=== PATIENT | female | born 1990 | race African-American/Black ===

== ENCOUNTER 2016-07-19 15:16 | Inpatient (IN) | payer MEDICAID ==
[~2016-07-19] VITALS: Ht 152.4 cm; Wt 132.6 kg
[~2016-07-19 15:16] MED LIST: ABIL5TAB6 PO; LABE100 PO; METO10TA PO; TRAZ50TA4 PO
[2016-07-19 16:01] VITALS: BP 122/56; PULSE 140; RESP 20; TEMP 101.2; O2SAT 94
[2016-07-19] MEDS ORDERED: ARIP1TAB5 PO (16:10)
[2016-07-19] MEDS ORDERED: TRAZ100T4 PO (16:10)
[2016-07-19] MEDS ORDERED: LABE100T2 PO (16:10)
[2016-07-19] MEDS ORDERED: AZITHROMYCIN INJ 500 MG in SODIUM CHLOR 0.9% 250 ML INJ 250 ML IV STA (16:25)
[2016-07-19] MEDS ORDERED: SODIUM CHLOR 0.9% 1000 ML INJ 1,000 ML IV ONE ×3 (16:25)
[2016-07-19] MEDS ORDERED: SODIUM CHLOR 0.9% 1000 ML INJ 900 ML IV ONE (16:25)
[2016-07-19] MEDS ORDERED: cefTRIAXone INJ 2,000 MG in SODIUM CHLORIDE 0.9% INJ 100 ML IV STA (16:25)
[2016-07-19 16:28] VITALS: RESP 20; O2SAT 95
[2016-07-19] MEDS ORDERED: methylPREDNISolone SOD SUCC 125 MG/2 ML VIAL IV ONE (16:30)
[2016-07-19 17:21] LABS: BASOPHIL # 0.1 TH/MM3 (0-0.2); BASOPHIL % 0.2 % (0.0-2.0); HEMATOCRIT 40.9 % (35.0-46.0); MEAN CELL VOLUME 82.3 FL (80.0-100.0); MEAN CORPUSCULAR HEMOGLOBIN 27.2 PG (27.0-34.0); MEAN CORPUSCULAR HGB CONC 33.1 % (32.0-36.0); MONO % 6.3 % (0.0-8.0); NEUT % 85.5 % (16.0-70.0); PLATELET COUNT 306 TH/MM3 (150-450); RED BLOOD COUNT 4.97 MIL/MM3 (4.00-5.30); RED CELL DISTRIBUTION WIDTH 13.9 % (11.6-17.2); WHITE BLOOD COUNT 37.4 TH/MM3 (4.0-11.0)
[2016-07-19] MEDS: RESP: ALBUTEROL 2.5 MG/IPRATROPIUM 0.5 MG NEB (SCH) INH (17:28)
[2016-07-19 17:29] LABS: HEMO FLAGS AUTO DIFF
[2016-07-19 17:30] LABS: ANION GAP 12 MEQ/L (5-15); AST (GOT) 25 U/L (15-37); BICARBONATE 21.9 MEQ/L (21.0-32.0); BLOOD UREA NITROGEN 20 MG/DL (7-18); CHLORIDE 100 MEQ/L (98-107); GLOMERULAR FILTRATION RATE 30 ML/MIN (>89); POTASSIUM 4.1 MEQ/L (3.5-5.1); SODIUM (NA) 134 MEQ/L (136-145)
[2016-07-19 17:32] VITALS: O2SAT 95
[2016-07-19 17:34] LABS: ALKALINE PHOSPHATASE 118 U/L (45-117); ALT (GPT) 27 U/L (10-53); APTT (PATIENT) 33.9 SEC (24.3-30.1); PROTHROMBIN TIME - PATIENT 11.4 SEC (9.8-11.6); TOTAL BILIRUBIN ADULT 0.8 MG/DL (0.2-1.0)
--- NOTE | 2016-07-19 17:44 | RADRPT ---
EXAM DATE/TIME: 07/19/2016 17:35 [place] COMPARISON: CHEST SINGLE AP, April 15, 2016, 17:56. INDICATIONS : Patient complains of shortness of breath, cough, and chest pain. MEDICAL HISTORY : None. SURGICAL HISTORY : None. ENCOUNTER: Initial ACUITY: 3 days PAIN SCORE: 8/10 LOCATION: chest FINDINGS: A single view of the chest demonstrates the lungs to be symmetrically aerated without evidence of mas s, infiltrate or effusion. The cardiomediastinal contours are unremarkable. Osseous structures are intact. CONCLUSION: No acute disease. Sy Verdugo MD on July 19, 2016 at 17:42 Board Certified Radiologist. This report was verified electronically.
[2016-07-19 17:55] LABS: BANDS 14 % (0-6); METAMYELOCYTES 2 % (0-1); NEUTROPHIL # MANUAL DIFF 32.5 TH/MM3 (1.8-7.7); POLYS (SEG NEUTROPHILS) 71 % (16-70); SCAN/DIFF FINAL DIFF MANUAL; WBC DIFF SAMPLE 100
[2016-07-19 17:56] LABS: PLATELET ESTIMATE SMEAR NORMAL (NORMAL); PLATELET MORPHOLOGY NORMAL (NORMAL)
[2016-07-19] MEDS ORDERED: ACETAMINOPHEN 325 MG TAB PO ONE (18:00)
--- NOTE | 2016-07-19 18:03 | PD ---
HPI Chief Complaint: General Weakness Time Seen by Provider: 16:03 Travel History International Travel<30 days: No Contact w/Intl Traveler<30days: No History of Present Illness HPI Patient is a 26-year-old female who presents to emergency room with complaints of cough and congestion for the past 2-3 weeks. Reports that she has not been feeling well, reports that she has been coughing, reports that her cough isn't productive. Patient reports that she is also been having some sore throat, reports that she has been having body aches and myalgias. Patient reports that for the past 3 days, she has not been able to eat or drink anything secondary to discomfort. Patient denies any sick contacts. Patient denies any recent travels or trips. Patient did not have the flu vaccine this year. PFSH Past Medical History Asthma: Yes Autoimmune Disease: No Blood Disorders: No Anxiety: Yes Depression: Yes Heart Rhythm Problems: No Cancer: No Cardiovascular Problems: Yes (HBP) Chemotherapy: No Chest Pain: No Cystic Fibrosis: No Diabetes: No Diminished Hearing: No Endocrine: No Gastrointestinal Disorders: Yes Genitourinary: Yes Headaches: No Hypertension: Yes Immune Disorder: No Musculoskeletal: No Neurologic: No Psychiatric: Yes (DEPRESSION, ANXIETY) Reproductive: No Respiratory: No Immunizations Current: No Renal Failure: Yes (DURING LAST ) Seizures: No Sickle Cell Disease: No Sleep Apnea: No Thyroid Disease: No Ulcer: No Influenza Vaccination: Yes ?: Not LMP: 06/22/16 Menopausal: No : 4 Para: 3 Miscarriage: 0 Ectopic : No Ovarian Cysts: No Dilation and Curettage (D&C): No Tubal Ligation: No Past Surgical History Abdominal Surgery: Yes ( X 1) Section: Yes (2012) Gynecologic Surgery: Yes Hysterectomy: No Other Surgery: Yes Social History Alcohol Use: No Tobacco Use: No Substance Use: No Allergies-Medications (Allergen,Severity, Reaction): Coded Allergies: Contrast Media (Verified Allergy, Unknown, RASH, 07/19/16) Reported Meds & Prescriptions Reported Meds & Active Scripts Active Reported Trazodone (Trazodone HCl) 100 Mg Tab 100 Mg PO HS Abilify (Aripiprazole) 10 Mg Tab 10 Mg PO HS Labetalol (Labetalol HCl) 100 Mg Tab 100 Mg PO BID Review of Systems General / Constitutional: Positive: Fever, Chills Eyes: No: Visual changes HENT: Positive: Sore Throat, No: Headaches Cardiovascular: No: Chest Pain or Discomfort Respiratory: Positive: Cough, Shortness of Breath Gastrointestinal: Positive: Nausea, Vomiting, No: Abdominal Pain Genitourinary: No: Dysuria Musculoskeletal: No: Pain Skin: No Rash Neurologic: No: Weakness Psychiatric: No: Depression Endocrine: No: Polydipsia Hematologic/Lymphatic: No: Easy Bruising Physical Exam Narrative GENERAL: Patient toxic, tachycardic and febrile SKIN: Warm and dry. HEAD: Atraumatic. Normocephalic. EYES: Pupils equal and round. No scleral icterus. No injection or drainage. ENT: No nasal bleeding or discharge. Mucous membranes tacky and dry NECK: Trachea midline. No JVD. CARDIOVASCULAR: Tachycardic. No murmur appreciated. RESPIRATORY: No accessory muscle use. Clear to auscultation. Breath sounds equal bilaterally. GASTROINTESTINAL: Abdomen soft, non-tender, nondistended. Hepatic and splenic margins not palpable. MUSCULOSKELETAL: No obvious deformities. No clubbing. No cyanosis. No edema. NEUROLOGICAL: Awake and alert. No obvious cranial nerve deficits. Motor grossly within normal limits. Normal speech. PSYCHIATRIC: Appropriate mood and affect; insight and judgment normal. Data Data Last Documented VS Vital Signs Date Time Temp Pulse Resp B/P Pulse Ox O2 Delivery O2 Flow Rate FiO2 07/19/16 17:32 95 Nasal Cannula 2.00 07/19/16 16:28 20 07/19/16 16:05 140 07/19/16 16:01 101.2 122/56 Orders Electrocardiogram (07/19/16 16:25) Complete Blood Count With Diff (07/19/16 16:25) Comprehensive Metabolic Panel (07/19/16 16:25) Prothrombin Time / Inr (Pt) (07/19/16 16:25) Act Partial Throm Time (Ptt) (07/19/16 16:25) Lactic Acid Sepsis Protocol (07/19/16 16:25) Urinalysis - C+S If Indicated (07/19/16 16:25) Influenzae A/B Antigen (07/19/16 16:25) Blood Culture (07/19/16 16:25) Chest, Single Ap (07/19/16 16:25) Ecg Monitoring (07/19/16 16:25) Iv Access Insert/Monitor (07/19/16 16:25) Oximetry (07/19/16 16:25) Oxygen Administration (07/19/16 16:25) Ceftriaxone Inj (Rocephin Inj) (07/19/16 16:25) Azithromycin Inj (Zithromax Inj) (07/19/16 16:25) Albuterol-Ipratropium Neb (Duoneb Neb) (07/19/16 16:30) Methylprednisolone So Succ Inj (Solumedr (07/19/16 16:30) Sodium Chlor 0.9% 1000 Ml Inj (Ns 1000 M (07/19/16 16:25) Sodium Chlor 0.9% 1000 Ml Inj (Ns 1000 M (07/19/16 16:25) Sodium Chlor 0.9% 1000 Ml Inj (Ns 1000 M (07/19/16 16:25) Sodium Chlor 0.9% 1000 Ml Inj (Ns 1000 M (07/19/16 16:25) Ed Urine Pregnancytest Poc (07/19/16 16:25) Group A Rapid Strep Screen (07/19/16 16:29) Consult Vascular Access Team (07/19/16 ) Acetaminophen (Tylenol) (07/19/16 18:00) Vancomycin Inj (Vancomycin Inj) (07/19/16 18:15) Admit Order (Ed Use Only) (07/19/16 18:35) Labs Laboratory Tests Test 07/19/16 16:00 White Blood Count 37.4 TH/MM3 Red Blood Count 4.97 MIL/MM3 Hemoglobin 13.5 GM/DL Hematocrit 40.9 % Mean Corpuscular Volume 82.3 FL Mean Corpuscular Hemoglobin 27.2 PG Mean Corpuscular Hemoglobin 33.1 % Concent Red Cell Distribution Width 13.9 % Platelet Count 306 TH/MM3 Mean Platelet Volume 8.7 FL Neutrophils (%) (Auto) 85.5 % Lymphocytes (%) (Auto) 8.0 % Monocytes (%) (Auto) 6.3 % Eosinophils (%) (Auto) 0.0 % Basophils (%) (Auto) 0.2 % Neutrophils # (Auto) 32.0 TH/MM3 Lymphocytes # (Auto) 3.0 TH/MM3 Monocytes # (Auto) 2.3 TH/MM3 Eosinophils # (Auto) 0.0 TH/MM3 Basophils # (Auto) 0.1 TH/MM3 CBC Comment AUTO DIFF Differential Total Cells 100 Counted Neutrophils % (Manual) 71 % Band Neutrophils % 14 % Lymphocytes % 9 % Monocytes % 4 % Neutrophils # (Manual) 32.5 TH/MM3 Metamyelocytes 2 % Differential Comment FINAL DIFF MANUAL Platelet Estimate NORMAL Platelet Morphology Comment NORMAL Prothrombin Time 11.4 SEC Prothromb Time International 1.0 RATIO Ratio Activated Partial 33.9 SEC Thromboplast Time Sodium Level 134 MEQ/L Potassium Level 4.1 MEQ/L Chloride Level 100 MEQ/L Carbon Dioxide Level 21.9 MEQ/L Anion Gap 12 MEQ/L Blood Urea Nitrogen 20 MG/DL Creatinine 2.40 MG/DL Estimat Glomerular Filtration 30 ML/MIN Rate Random Glucose 91 MG/DL Lactic Acid Level 0.8 mmol/L Calcium Level 8.6 MG/DL Total Bilirubin 0.8 MG/DL Aspartate Amino Transf 25 U/L (AST/SGOT) Alanine Aminotransferase 27 U/L (ALT/SGPT) Alkaline Phosphatase 118 U/L Total Protein 8.3 GM/DL Albumin 2.8 GM/DL MDM Medical Decision Making Medical Screen Exam Complete: Yes Emergency Medical Condition: Yes Interpretation(s) Vital Signs Date Time Temp Pulse Resp B/P Pulse Ox O2 Delivery O2 Flow Rate FiO2 07/19/16 17:32 95 Nasal Cannula 2.00 07/19/16 16:28 96 Room Air 07/19/16 16:28 20 95 Room Air 07/19/16 16:05 140 20 95 Room Air 07/19/16 16:01 101.2 140 20 122/56 94 Laboratory Tests Test 07/19/16 16:00 White Blood Count 37.4 TH/MM3 (4.0-11.0) Red Blood Count 4.97 MIL/MM3 (4.00-5.30) Hemoglobin 13.5 GM/DL (11.6-15.3) Hematocrit 40.9 % (35.0-46.0) Mean Corpuscular Volume 82.3 FL (80.0-100.0) Mean Corpuscular Hemoglobin 27.2 PG (27.0-34.0) Mean Corpuscular Hemoglobin 33.1 % Concent (32.0-36.0) Red Cell Distribution Width 13.9 % (11.6-17.2) Platelet Count 306 TH/MM3 (150-450) Mean Platelet Volume 8.7 FL (7.0-11.0) Neutrophils (%) (Auto) 85.5 % (16.0-70.0) Lymphocytes (%) (Auto) 8.0 % (9.0-44.0) Monocytes (%) (Auto) 6.3 % (0.0-8.0) Eosinophils (%) (Auto) 0.0 % (0.0-4.0) Basophils (%) (Auto) 0.2 % (0.0-2.0) Neutrophils # (Auto) 32.0 TH/MM3 (1.8-7.7) Lymphocytes # (Auto) 3.0 TH/MM3 (1.0-4.8) Monocytes # (Auto) 2.3 TH/MM3 (0-0.9) Eosinophils # (Auto) 0.0 TH/MM3 (0-0.4) Basophils # (Auto) 0.1 TH/MM3 (0-0.2) CBC Comment AUTO DIFF Differential Total Cells 100 Counted Neutrophils % (Manual) 71 % (16-70) Band Neutrophils % 14 % (0-6) Lymphocytes % 9 % (9-44) Monocytes % 4 % (0-8) Neutrophils # (Manual) 32.5 TH/MM3 (1.8-7.7) Metamyelocytes 2 % (0-1) Differential Comment FINAL DIFF MANUAL Platelet Estimate NORMAL (NORMAL) Platelet Morphology Comment NORMAL (NORMAL) Prothrombin Time 11.4 SEC (9.8-11.6) Prothromb Time International 1.0 RATIO Ratio Activated Partial 33.9 SEC Thromboplast Time (24.3-30.1) Sodium Level 134 MEQ/L (136-145) Potassium Level 4.1 MEQ/L (3.5-5.1) Chloride Level 100 MEQ/L (98-107) Carbon Dioxide Level 21.9 MEQ/L (21.0-32.0) Anion Gap 12 MEQ/L (5-15) Blood Urea Nitrogen 20 MG/DL (7-18) Creatinine 2.40 MG/DL (0.50-1.00) Estimat Glomerular Filtration 30 ML/MIN (>89) Rate Random Glucose 91 MG/DL (74-106) Lactic Acid Level 0.8 mmol/L (0.4-2.0) Calcium Level 8.6 MG/DL (8.5-10.1) Total Bilirubin 0.8 MG/DL (0.2-1.0) Aspartate Amino Transf 25 U/L (15-37) (AST/SGOT) Alanine Aminotransferase 27 U/L (10-53) (ALT/SGPT) Alkaline Phosphatase 118 U/L (45-117) Total Protein 8.3 GM/DL (6.4-8.2) Albumin 2.8 GM/DL (3.4-5.0) Differential Diagnosis Pneumonia, influenza, strep pharyngitis, colitis, PE, viral syndrome Narrative Course Patient is a 26-year-old female who presents to emergency room with tachycardia , fever, cough and congestion for the past 2-3 weeks. Patient toxic appearing, temperature 101.2, tachycardia with a heart rate in 140s, x-ray of the chest ordered for evaluation of pneumonia. CBC, BMP, influenza ordered for further evaluation of symptoms. Patient does have SIRS criteria on presentation to the emergency room, patient had tachycardia and was febrile, lactate ordered as well as 30 cc/kg bolus of IV fluids. Patient with WBC of 37.4, patient with 14 bands, lactate is 0.8 BUN/creatinine 20/2.40 - patient's baseline creatinine is 1.46 on May 03, 2016 Patient is septic - x-ray of the chest is negative for pneumonia, patient is positive for group A strep, patient is negative flu a and flu B. Blood cultures are pending. Patient was empirically treated with Zosyn and Rocephin as it was presumed that she had pneumonia upon presentation to the emergency room. We'll add vancomycin. Patient will require admission case reviewed with dr self who accepts pt to service Critical Care Narrative Aggregate critical care time was 30 minutes. Time to perform other separately billable procedures was not included in the critical care time. My time did not include minutes spent treating any other patients simultaneously or on activities that did not directly contribute to the patient's treatment. The services I provided to this patient were to treat and/or prevent clinically significant deterioration that could result in: , decompensation, deterioration I provided critical care services requiring my management, as noted below: Chart data review, documentation time, medication orders and management, vital sign assessments/reviewing monitor data, ordering and reviewing lab tests, ordering and interpreting/reviewing x-rays and diagnostic studies, care of the patient and discussion of the patient with the admitting physicians. Diagnosis Primary Impression: Sepsis Qualified Code: A41.9 - Sepsis, due to unspecified organism Additional Impression: Group A streptococcal infection Admitting Information Admitting Physician Requests: it Lesli Calero DO Jul 19, 2016 18:03
[2016-07-19] MEDS ORDERED: VANCOMYCIN INJ 1,000 MG in SODIUM CHLOR 0.9% 250 ML INJ 250 ML IV ONE (18:15)
[2016-07-19 18:44] VITALS: BP 122/58; PULSE 138; RESP 20; TEMP 99.1; O2SAT 99
[2016-07-19] MEDS ORDERED: ACETAMINOPHEN/HYDROcodone 325 MG/10 MG TAB PO PRN (18:45)
[2016-07-19] MEDS ORDERED: ACETAMINOPHEN 325 MG TAB PO PRN (18:45)
[2016-07-19] MEDS ORDERED: NALOXONE HCL 0.4 MG/ML AMP IV PRN (18:45)
[2016-07-19] MEDS ORDERED: ACETAMINOPHEN/HYDROcodone 325 MG/5 MG TAB PO PRN (18:45)
[2016-07-19] MEDS ORDERED: MORPHINE SULFATE 4 MG/ML INJ IV PRN (18:45)
[2016-07-19 19:48] LABS: BLOOD, URINE MOD (NEG); GLUCOSE,URINE NEG (NEG); KETONE, URINE NEG (NEG); MUCUS URINE FEW /lpf (OCC); NITRITE,URINE NEG (NEG); SQUAMOUS EPITHELIAL CELL URINE 2 /hpf (0-5); URINE COLOR YELLOW (YELLW/STRAW)
[2016-07-19 19:56] LABS: BACTERIA, URINE OCC /hpf; COMMENT (UR) CATH-CULTURE IND; CULTURE IF INDICATED CATH CULTURE IND
[2016-07-19] MEDS ORDERED: SODIUM CHLOR 0.9% 1000 ML INJ 1,000 ML IV SCH (20:00)
[2016-07-19 20:12] VITALS: BP 119/71; PULSE 118; RESP 22; TEMP 100; O2SAT 92
[2016-07-19] MEDS ORDERED: DEXAMETHASONE SOD PHOS 20 MG/5 ML VIAL IV PUSH ONE (20:45)
[2016-07-19] MEDS: PANTOPRAZOLE SODIUM 40 MG VIAL IV PUSH SCH (20:58)
--- NOTE | 2016-07-19 21:06 | HHI.HP ---
[facility] Service [facility] Primary Care Physician Jordan Renner MD Admission Diagnosis Sepsis Diagnoses: (1) Sepsis (2) Group A streptococcal infection (3) UTI (urinary tract infection) (4) Acute renal failure (5) Hyponatremia Chief Complaint: Sore throat and headache Travel History International Travel<30 Days: No Contact w/Intl Traveler <30 Da: No Sepsis Criteria SIRS Criteria (2 or more): Temp > 100.9 or < 96.8, Heart rate over 90, WBC > 46619, < 4000 or > 10% bands Sepsis Criteria (SIRS+source): Infect source susp/known History of Present Illness Ms. Deleon is a 26 year-old female with a history of asthma, depression, anxiety , hypertension, and renal failure during who presented to the ER complaining of sore throat and odynophagia x 3 days. Temperature is 101.2 in ER , pulse is 140, WBC 37.4 with left shift, abnormal UA suggestive of UTI, negative CXR. The patient is seen in the ER. She complains of severe sore throat, odynophagia , and headache x 3 days not relieved by anything and resulting in minimal p.o. intake due to pain. Sore throat is accompanied by cough with minimal sputum production. The patient reports having diarrhea since arrival in ER. No black or bloody stool. Denies hematuria or dysuria. Denies history of asthma, respiratory or cardiac disorders, diabetes mellitus, DVT, PE, CVA, seizures, cancer, or thyroid dysfunction. . Review of Systems Constitutional: DENIES: Fever Ears, nose, mouth, throat: COMPLAINS OF: Throat pain, Odynophagia Respiratory: COMPLAINS OF: Cough, Sputum production, Shortness of breath Gastrointestinal: COMPLAINS OF: Diarrhea, Difficulty Swallowing, DENIES: Black stools, Bloody stools Genitourinary: DENIES: Hematuria, Dysuria Other pertinent positives noted in HPI, otherwise all systems are reviewed and are otherwise negative. Past Family Social History Past Medical History Anxiety Depression Hypertension . Past Surgical History x 2 . Reported Medications labetolol 100 mg bid abilify 15 mg daily trazadone 50 mg qhs . Allergies: Coded Allergies: Contrast Media (Verified Allergy, Unknown, RASH, 07/19/16) Active Ordered Medications Current Medications Ceftriaxone Sodium 2000 mg/ Sodium Chloride 100 ml @ 200 mls/hr ONCE STAT IV Last administered on 07/19/16 17:00; Start 07/19/16 at 16:25; Stop 07/19/16 at 16:54; Status DC Azithromycin/ Sodium Chloride (Zithromax Inj/ NS 250 ml Inj) 250 ml @ 250 mls/ hr ONCE STAT IV Last administered on 07/19/16 17:01; Start 07/19/16 at 16:25 ; Stop 07/19/16 at 17:24; Status DC Albuterol/ Ipratropium (Duoneb Neb) 1 ampule Q15M INH Last administered on 07/19 17:28; Start 07/19/16 at 16:30; Stop 07/19/16 at 16:46; Status DC Methylprednisolone Sodium Succinate 125 mg 125 mg ONCE ONCE IV Last administered on 07/19/16 17:01; Start 07/19/16 at 16:30; Stop 07/19/16 at 16:31 ; Status DC Sodium Chloride 1,000 ml @ 1,000 mls/hr Q1H ONCE IV Last administered on 16:59; Start 07/19/16 at 16:25; Stop 07/19/16 at 17:24; Status DC Sodium Chloride 1,000 ml @ 1,000 mls/hr Q1H ONCE IV Last administered on 17:02; Start 07/19/16 at 16:25; Stop 07/19/16 at 17:24; Status DC Sodium Chloride 1,000 ml @ 1,000 mls/hr Q1H ONCE IV Last administered on 17:57; Start 07/19/16 at 16:25; Stop 07/19/16 at 17:24; Status DC Sodium Chloride (NS 1000 ml Inj) 900 ml @ 1,000 mls/hr Q54M ONCE IV Last administered on 07/19/16 18:48; Start 07/19/16 at 16:25; Stop 07/19/16 at 17:18 ; Status DC Acetaminophen 650 mg 650 mg ONCE ONCE PO Last administered on 07/19/16 17:57 ; Start 07/19/16 at 18:00; Stop 07/19/16 at 18:01; Status DC Vancomycin HCl 1000 mg/Sodium Chloride 250 ml @ 250 mls/hr ONCE ONCE IV Last administered on 07/19/16 19:26; Start 07/19/16 at 18:15; Stop 07/19/16 at 19:14 ; Status DC Sodium Chloride (NS 1000 ml Inj) 1,000 ml @ 100 mls/hr Q10H IV ; Start at 20:00; Stop 07/19/16 at 20:39; Status DC Acetaminophen (Tylenol) 650 mg Q4H PRN PO TEMP > 100.4; Start 07/19/16 at 18:45 Acetaminophen (Tylenol) 650 mg Q6H PRN PO PAIN SCALE 1 TO 2; Start 07/19/16 at 18:45 Acetaminophen/ Hydrocodone Bitart ([place] 5-325 Mg) 1 tab Q4H PRN PO PAIN SCALE 3 TO 5; Start 07/19/16 at 18:45 Acetaminophen/ Hydrocodone Bitart ([place] 10-325 Mg) 1 tab Q4H PRN PO PAIN SCALE 6 TO 10; Start 07/19/16 at 18:45 Morphine Sulfate (Morphine Inj) 3 mg Q3H PRN IV BREAKTHROUGH PAIN; Start at 18:45 Naloxone HCl (Narcan Inj) 0.4 mg UNSCH PRN IV SEE LABEL COMMENTS; Start at 18:45 Dexamethasone Sodium Phosphate (Decadron Inj) 10 mg ONCE ONCE IV PUSH Last administered on 07/19/16 20:58; Start 07/19/16 at 20:45; Stop 07/19/16 at 20:46 ; Status DC Dexamethasone Sodium Phosphate (Decadron Inj) 4 mg Q6HR IV PUSH ; Start at 00:00 Pantoprazole Sodium 40 mg 40 mg Q24H IV PUSH Last administered on 07/19/16 20: 58; Start 07/19/16 at 21:00 Clindamycin Phosphate/Sodium Chloride (Cleocin Inj/NS Inj) 106 ml @ 212 mls/hr Q6H IV ; Start 07/19/16 at 21:00 Family History Mother age with CHF at age 54 y/o . Social History Tobacco: denies Alcohol: denies Illicit Drugs: denies . Physical Exam Vital Signs Vital Signs Date Time Temp Pulse Resp B/P Pulse Ox O2 Delivery O2 Flow Rate FiO2 07/19/16 20:12 100.0 118 22 119/71 92 Nasal Cannula 2 07/19/16 18:44 99.1 138 20 122/58 99 07/19/16 17:32 95 Nasal Cannula 2.00 07/19/16 16:28 96 Room Air 07/19/16 16:28 20 95 Room Air 07/19/16 16:05 140 20 95 Room Air 07/19/16 16:01 101.2 140 20 122/56 94 Physical Exam GENERAL: This is an obese female patient, in no apparent distress. SKIN: No rashes, ecchymoses or lesions. Cool and dry. HEAD: Atraumatic. Normocephalic. EYES: No scleral icterus. No injection or drainage. ENT: Nose without bleeding, purulent drainage. Enlarged tonsils with white exudate bilaterally. NECK: Trachea midline. No JVD. CARDIOVASCULAR: Regular rate and rhythm without murmurs, gallops, or rubs. RESPIRATORY: Clear to auscultation. Breath sounds equal bilaterally. No wheezes , rales, or rhonchi. GASTROINTESTINAL: Abdomen soft, non-tender, nondistended. No guarding. MUSCULOSKELETAL: Extremities without clubbing, cyanosis, or edema. No calf tenderness. NEUROLOGICAL: Awake and alert. Motor and sensory grossly within normal limits. Normal speech. . Laboratory Laboratory Tests Test 07/19/16 07/19/16 16:00 19:00 White Blood Count 37.4 Red Blood Count 4.97 Hemoglobin 13.5 Hematocrit 40.9 Mean Corpuscular Volume 82.3 Mean Corpuscular Hemoglobin 27.2 Mean Corpuscular Hemoglobin 33.1 Concent Red Cell Distribution Width 13.9 Platelet Count 306 Mean Platelet Volume 8.7 Neutrophils (%) (Auto) 85.5 Lymphocytes (%) (Auto) 8.0 Monocytes (%) (Auto) 6.3 Eosinophils (%) (Auto) 0.0 Basophils (%) (Auto) 0.2 Neutrophils # (Auto) 32.0 Lymphocytes # (Auto) 3.0 Monocytes # (Auto) 2.3 Eosinophils # (Auto) 0.0 Basophils # (Auto) 0.1 CBC Comment AUTO DIFF Differential Total Cells 100 Counted Neutrophils % (Manual) 71 Band Neutrophils % 14 Lymphocytes % 9 Monocytes % 4 Neutrophils # (Manual) 32.5 Metamyelocytes 2 Differential Comment FINAL DIFF MANUAL Platelet Estimate NORMAL Platelet Morphology Comment NORMAL Prothrombin Time 11.4 Prothromb Time International 1.0 Ratio Activated Partial 33.9 Thromboplast Time Sodium Level 134 Potassium Level 4.1 Chloride Level 100 Carbon Dioxide Level 21.9 Anion Gap 12 Blood Urea Nitrogen 20 Creatinine 2.40 Estimat Glomerular Filtration 30 Rate Random Glucose 91 Lactic Acid Level 0.8 Calcium Level 8.6 Total Bilirubin 0.8 Aspartate Amino Transf 25 (AST/SGOT) Alanine Aminotransferase 27 (ALT/SGPT) Alkaline Phosphatase 118 Total Protein 8.3 Albumin 2.8 Urine Color YELLOW Urine Turbidity HAZY Urine pH 6.0 Urine Specific [place] 1.018 Urine Protein GREATER THAN 600 Urine Glucose (UA) NEG Urine Ketones NEG Urine Occult Blood MOD Urine Nitrite NEG Urine Bilirubin NEG Urine Urobilinogen 2.0 Urine Leukocyte Esterase NEG Urine RBC 1 Urine WBC 2 Urine Squamous Epithelial 2 Cells Urine Amorphous Sediment FEW Urine Bacteria OCC Urine Mucus FEW Microscopic Urinalysis Comment CATH-CULTURE IND Date/Time Procedure Status Source Growth 07/19/16 19:00 Urine Culture Received Urine Catheterized Urine Pending 07/19/16 16:00 Influenza Types A,B Antigen ([facility]) - Final Complete Nasal Aspirate NEGATIVE FOR FLU A AND B ANTIGEN.... 07/19/16 16:00 Group A Streptococcus Screen ([facility]ELINE) - Final Complete Throat Pos For Grp A Strep Antigen 07/19/16 16:00 Aerobic Blood Culture Received Blood Peripheral Pending 07/19/16 16:00 Anaerobic Blood Culture Received Blood Peripheral Pending Result Diagram: 07/19/16 1600 07/19/16 1600 Imaging Last Impressions Chest X-Ray 07/19/16 1625 Signed Impressions: Service Date/Time: Tuesday, July 19, 2016 17:35 - CONCLUSION: No acute disease. Sy Verdugo MD Assessment and Plan Problem List: (1) Sepsis ICD Code: A41.9 Status: Acute (2) Group A streptococcal infection ICD Code: B95.0 Status: Acute (3) UTI (urinary tract infection) ICD Code: N39.0 Status: Acute (4) Acute renal failure ICD Code: N17.9 Status: Acute (5) Hyponatremia ICD Code: E87.1 Status: Acute Assessment and Plan Ms. Cotton is a 26 year-old female with a history of asthma, depression, anxiety , hypertension, and renal failure during who presented to the ER complaining of sore throat and odynophagia x 3 days. Temperature is 101.2 in ER , pulse is 140, WBC 37.4 with left shift, abnormal UA suggestive of UTI, negative CXR. Sepsis Group A streptococcal tonsillitis Suspected UTI - Presented with temperature 101.2, pulse is 140, WBC 37.4 with left shift in ER - Abnormal UA with culture indicated; await results; negative CXR - Treated in ER with Vancomycin, Ceftriaxone, Azithromycin - NS x 4 liters bolus - Clindamycin 900 mg IV q6h - Morphine 3 mg IV q3h PRN breakthrough pain - Lortab 5/325 mg - 7.5/325 mg p.o. q4h prn pain - Dexamethasone 10 mg IV x 1 dose; 4 mg IV q6h thereafter Acute renal failure - BUN 20, creatinine 2.40, eGFR 30 - Hale catheter - Monitor I and O - Recheck BMP in a.m.; follow trends in renal indices - Avoid nephrotoxins Mild Hyponatremia - initial sodium 134 - NS at 100 cc/hr - Recheck bmp in a.m. and follow sodium level DVT prophylaxis - Heparin 5000 units subq q8h Written by Lea Taylor, acting as scribe for Dr. Davila on 07/19/16 at 21:06. The documentation accurately reflects the work performed [id number] by me on at [address] Shahid and patient Physician Certification 2 Midnight Certification Type: Admission for Inpatient Services Order for Inpatient Services The services are ordered in accordance with Medicare regulations or non- Medicare payer requirements, as applicable. In the case of services not specified as inpatient-only, they are appropriately provided as inpatient services in accordance with the 2-midnight benchmark. Estimated LOS (days): 3 days is the estimated time the patient will need to remain in the hospital, assuming treatment plan goals are met and no additional complications. Post-Hospital Plan: Home Problem Qualifiers (1) Sepsis: Qualified Code: A41.9 - Sepsis, due to unspecified organism (2) UTI (urinary tract infection): (3) Acute renal failure: Qualified Code: N17.9 - Acute renal failure, unspecified acute renal failure type Lea Taylor Jul 19, 2016 21:06 Alexis Davila MD Jul 20, 2016 08:36
[2016-07-19 22:06] VITALS: BP 140/85; PULSE 110; RESP 22; TEMP 98.2; O2SAT 95
[2016-07-19] MEDS: CLINDAMYCIN INJ 900 MG in SODIUM CHLORIDE 0.9% INJ 100 ML IV SCH (22:09)
[2016-07-20] VITALS (7 sets, daily range): BP systolic 125–137; BP diastolic 72–97; PULSE 101–111; RESP 20–22; TEMP 95.6–98.3; O2SAT 95–99
[2016-07-20] MEDS: DEXAMETHASONE SOD PHOS 4 MG/ML VIAL IV PUSH SCH ×4 (00:35→21:48)
[2016-07-20] MEDS: CLINDAMYCIN INJ 900 MG in SODIUM CHLORIDE 0.9% INJ 100 ML IV SCH ×2 (03:31→09:31)
[2016-07-20 04:36] LABS: MEAN CELL VOLUME 85.6 FL (80.0-100.0); MEAN CORPUSCULAR HEMOGLOBIN 27.1 PG (27.0-34.0); MEAN CORPUSCULAR HGB CONC 31.7 % (32.0-36.0); PLATELET COUNT 265 TH/MM3 (150-450); RED BLOOD COUNT 4.55 MIL/MM3 (4.00-5.30); WHITE BLOOD COUNT 40.4 TH/MM3 (4.0-11.0)
[2016-07-20 04:45] LABS: HEMO FLAGS AUTO DIFF
[2016-07-20 05:05] LABS: BICARBONATE 21.2 MEQ/L (21.0-32.0); POTASSIUM 4.4 MEQ/L (3.5-5.1)
[2016-07-20] MEDS: HEPARIN SODIUM - SQ 10,000 UNITS/ML VIAL SQ SCH ×3 (05:29→19:40)
[2016-07-20 05:32] LABS: BANDS 8 % (0-6); NEUTROPHIL # MANUAL DIFF 39.2 TH/MM3 (1.8-7.7); POLYS (SEG NEUTROPHILS) 89 % (16-70); WBC DIFF SAMPLE 100
[2016-07-20 05:33] LABS: PLATELET ESTIMATE SMEAR NORMAL (NORMAL); PLATELET MORPHOLOGY NORMAL (NORMAL); SCAN/DIFF FINAL DIFF MANUAL
[2016-07-20] MEDS ORDERED: INFLUENZA VIRUS VACCINE (QUADRIVALENT) 0.5 ML SYR IM ONE (09:00)
[2016-07-20] MEDS ORDERED: PNEUMOCOCCAL POLYVALENT INJ 25 MCG/0.5 ML SYR IM ONE (09:00)
--- NOTE | 2016-07-20 10:34 | HHI.PR ---
Subjective Remarks Feels improved. Tolerated CLD and wants to advance diet. Will give soft diet. No fevers overnight. No n/v/d/c. Denies cp, sob. Pain is controlled by meds. Swelling is getting down. Objective Vitals Vital Signs Date Time Temp Pulse Resp B/P Pulse Ox O2 Delivery O2 Flow Rate FiO2 07/20/16 08:00 95.6 110 20 125/88 99 07/20/16 06:25 97.1 104 22 135/95 97 07/20/16 04:00 97.1 107 20 136/72 95 07/20/16 00:00 98.3 111 22 130/77 99 07/19/16 22:06 98.2 110 22 140/85 95 07/19/16 20:12 100.0 118 22 119/71 92 Nasal Cannula 2 07/19/16 18:44 99.1 138 20 122/58 99 07/19/16 17:32 95 Nasal Cannula 2.00 07/19/16 16:28 96 Room Air 07/19/16 16:28 20 95 Room Air 07/19/16 16:05 140 20 95 Room Air 07/19/16 16:01 101.2 140 20 122/56 94 I/O 07/19/16 07/19/16 07/19/16 07/20/16 07/20/16 07/20/16 07:00 15:00 23:00 07:00 15:00 23:00 Intake Total 930 ml Output Total 1200 ml Balance -270 ml Intake Oral 480 ml IV Total 450 ml Output Urine Total 1200 ml # Bowel Movements 0 Result Diagram: 07/20/16 0417 07/20/16 0417 Imaging Last Impressions Chest X-Ray 07/19/16 1625 Signed Impressions: Service Date/Time: Tuesday, July 19, 2016 17:35 - CONCLUSION: No acute disease. Sy Verdugo MD Objective Remarks GENERAL: This is an obese female patient, in no apparent distress. SKIN: No rashes, ecchymoses or lesions. Cool and dry. HEAD: Atraumatic. Normocephalic. EYES: No scleral icterus. No injection or drainage. ENT: Nose without bleeding, purulent drainage. Enlarged tonsils with white exudate bilaterally. NECK: Trachea midline. No JVD. CARDIOVASCULAR: Regular rate and rhythm without murmurs, gallops, or rubs. RESPIRATORY: Clear to auscultation. Breath sounds equal bilaterally. No wheezes , rales, or rhonchi. GASTROINTESTINAL: Abdomen soft, non-tender, nondistended. No guarding. MUSCULOSKELETAL: Extremities without clubbing, cyanosis, or edema. No calf tenderness. NEUROLOGICAL: Awake and alert. Motor and sensory grossly within normal limits. Normal speech. A/P Problem List: (1) Sepsis ICD Code: A41.9 Status: Acute (2) Group A streptococcal infection ICD Code: B95.0 Status: Acute (3) UTI (urinary tract infection) ICD Code: N39.0 Status: Acute (4) Acute renal failure ICD Code: N17.9 Status: Acute (5) Hyponatremia ICD Code: E87.1 Status: Acute Assessment and Plan Ms. Deleon is a 26 year-old female with a history of asthma, depression, anxiety , hypertension, and renal failure during who presented to the ER complaining of sore throat and odynophagia x 3 days. Temperature is 101.2 in ER , pulse is 140, WBC 37.4 with left shift, abnormal UA suggestive of UTI, negative CXR. Sepsis Group A streptococcal tonsillitis Suspected UTI - Presented with temperature 101.2, pulse is 140, WBC 37.4 with left shift in ER - Abnormal UA with culture indicated; await results; negative CXR - Treated in ER with Vancomycin, Ceftriaxone, Azithromycin - NS x 4 liters bolus - Clindamycin 900 mg IV q6h - Morphine 3 mg IV q3h PRN breakthrough pain - Lortab 5/325 mg - 7.5/325 mg p.o. q4h prn pain - Dexamethasone 10 mg IV x 1 dose; 4 mg IV q6h thereafter. Will taper down as tolerated - Consult ID Acute renal failure - BUN 20, creatinine 2.40, eGFR 30 - Hale catheter - Monitor I and O - Recheck BMP in a.m.; follow trends in renal indices - Avoid nephrotoxins Mild Hyponatremia - initial sodium 134 - NS at 100 cc/hr - Recheck bmp in a.m. and follow sodium level Morbid obesity BMI of 56.7 . Diet and exercise, dietary f/u as oP and PCP consider bariatric surgery. DVT prophylaxis - Heparin 5000 units subq q8h Discussed with the patient and the nurse. Problem Qualifiers (1) Sepsis: Qualified Code: A41.9 - Sepsis, due to unspecified organism (2) UTI (urinary tract infection): (3) Acute renal failure: Qualified Code: N17.9 - Acute renal failure, unspecified acute renal failure type Tamia Mccurdy MD Jul 20, 2016 10:34
[2016-07-20] MEDS: ACETAMINOPHEN 325 MG TAB PO PRN ×2 (11:21→21:49)
--- NOTE | 2016-07-20 11:25 | EKG ---
Date Performed: 07/19/2016 Time Performed: 16:46:50 PTAGE: 26 years EKG: Marked sinus tachycardia with increased rate compared to the old tracing. ABNORMAL RHYTHM E CG PREVIOUS TRACING : 04/15/2016 16.26 DOCTOR: Flako Parish Interpretating Date/Time 07/20/2016 11:23:32
--- NOTE | 2016-07-20 12:13 | PD.CONS ---
History of Present Illness Service Infectious disease Consult Requested By Dr Kandy Mccurdy Reason for Consult Evaluate patient with fever and leukocytosis Primary Care Physician Jordan Renner MD Diagnoses: History of Present Illness Patient seen and examined. Records reviewed. Patient is a 26-year-old female presented to the hospital complaining of three- day history of severe sore throat, and odynophagia. She also had some out shortness of breath, as well as some dry coughing. She had some nausea but no vomiting. She did not have any fever at home but on presentation to the emergency room showed a temperature of 101.2. Her WBC was 37,000. His quinones also notes that she has some swollen glands in her neck area. She denies having any exposure to any sick child or sick person. She has not had any sexual contact in the last 2 months. She denies having any prior history of mono. Her chest x-ray on admission is normal. Her white count is up to 40, 000. Throat culture has group A strep. Infectious disease consultation has been requested today to evaluate for fever and leukocytosis. Review of Systems Constitutional: COMPLAINS OF: Fever, Chills, DENIES: Night Sweats Eyes: DENIES: Eye pain, Photosensitivity Ears, nose, mouth, throat: COMPLAINS OF: Throat pain, DENIES: Nasal discharge , Hoarseness, Ear Pain, Running Nose, Sinus Pain, Toothache Respiratory: COMPLAINS OF: Cough, Shortness of breath, DENIES: Sputum production Cardiovascular: DENIES: Chest pain, Palpitations, Syncope Gastrointestinal: COMPLAINS OF: Abdominal pain, Diarrhea, Nausea, Difficulty Swallowing, DENIES: Vomiting Genitourinary: DENIES: Urinary frequency, Dysuria Musculoskeletal: COMPLAINS OF: Muscle aches, DENIES: Joint pain, Joint Swelling Integumentary: DENIES: Rash Hematologic/lymphatic: COMPLAINS OF: Lymphadenopathy Neurologic: COMPLAINS OF: Headache Psychiatric: COMPLAINS OF: Depression Past Family Social History Allergies: Coded Allergies: Contrast Media (Verified Allergy, Unknown, RASH, 07/19/16) Past Medical History Anxiety Depression Hypertension Past Surgical History x 2 Active Ordered Medications Tylenol [place] Clindamycin Decadron Heparin Morphine Protonix Social History No smoking No acohol abuse No drug use Physical Exam Vital Signs Vital Signs Date Time Temp Pulse Resp B/P Pulse Ox O2 Delivery O2 Flow Rate FiO2 07/20/16 08:00 95.6 110 20 125/88 99 07/20/16 06:25 97.1 104 22 135/95 97 07/20/16 04:00 97.1 107 20 136/72 95 07/20/16 00:00 98.3 111 22 130/77 99 07/19/16 22:06 98.2 110 22 140/85 95 07/19/16 20:12 100.0 118 22 119/71 92 Nasal Cannula 2 07/19/16 18:44 99.1 138 20 122/58 99 07/19/16 17:32 95 Nasal Cannula 2.00 07/19/16 16:28 96 Room Air 07/19/16 16:28 20 95 Room Air 07/19/16 16:05 140 20 95 Room Air 07/19/16 16:01 101.2 140 20 122/56 94 Physical Exam GENERAL: This is an obese, well-developed female, not in respiratory distress SKIN: Warm and dry. No generalized rash, no ecchymosis or embolic lesions. HEAD: Atraumatic. Normocephalic. No temporal or scalp tenderness. EYES: [place] conjunctivae. Pupils equal round and reactive. Extraocular movements full and intact. No scleral icterus. No injection or drainage. ENT: Nose without bleeding, or purulent drainage. Moist oral mucosa, enlarged tonsils almost kissing, with white exudate. Has erythema. Uvula midline. Airway patent. NECK: Trachea midline. Has cervical tender lymphadenopathy. Supple, no meningeal signs. CARDIOVASCULAR: Regular rate and rhythm without murmurs, gallops, or rubs. RESPIRATORY: Clear to auscultation. Breath sounds equal bilaterally. No wheezes , rales, or rhonchi. GASTROINTESTINAL: Abdomen soft, obese, non-tender, nondistended. Bowel sounds are present and normoactive. No hepato-splenomegaly, or palpable masses. No guarding. MUSCULOSKELETAL: Extremities without clubbing, cyanosis, or edema. No joint tenderness, effusion, or edema noted. No calf tenderness. Negative Homans sign bilaterally. NEUROLOGICAL: Awake and alert. 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 The rest of CN full and intact. Motor and sensory grossly within normal limits. Five out of 5 muscle strength in all muscle groups. Normal speech. PSYCH: Normal affect, calm and cooperative Laboratory Laboratory Tests Test 07/19/16 07/19/16 07/20/16 16:00 19:00 04:17 White Blood Count 37.4 40.4 Red Blood Count 4.97 4.55 Hemoglobin 13.5 12.3 Hematocrit 40.9 39.0 Mean Corpuscular Volume 82.3 85.6 Mean Corpuscular Hemoglobin 27.2 27.1 Mean Corpuscular Hemoglobin 33.1 31.7 Concent Red Cell Distribution Width 13.9 14.0 Platelet Count 306 265 Mean Platelet Volume 8.7 8.7 Neutrophils (%) (Auto) 85.5 Lymphocytes (%) (Auto) 8.0 Monocytes (%) (Auto) 6.3 Eosinophils (%) (Auto) 0.0 Basophils (%) (Auto) 0.2 Neutrophils # (Auto) 32.0 Lymphocytes # (Auto) 3.0 Monocytes # (Auto) 2.3 Eosinophils # (Auto) 0.0 Basophils # (Auto) 0.1 CBC Comment AUTO DIFF AUTO DIFF Differential Total Cells 100 100 Counted Neutrophils % (Manual) 71 89 Band Neutrophils % 14 8 Lymphocytes % 9 2 Monocytes % 4 1 Neutrophils # (Manual) 32.5 39.2 Metamyelocytes 2 Differential Comment FINAL DIFF FINAL DIFF MANUAL MANUAL Platelet Estimate NORMAL NORMAL Platelet Morphology Comment NORMAL NORMAL Prothrombin Time 11.4 Prothromb Time International 1.0 Ratio Activated Partial 33.9 Thromboplast Time Sodium Level 134 139 Potassium Level 4.1 4.4 Chloride Level 100 108 Carbon Dioxide Level 21.9 21.2 Anion Gap 12 10 Blood Urea Nitrogen 20 20 Creatinine 2.40 2.00 Estimat Glomerular Filtration 30 37 Rate Random Glucose 91 125 Lactic Acid Level 0.8 Calcium Level 8.6 8.2 Total Bilirubin 0.8 Aspartate Amino Transf 25 (AST/SGOT) Alanine Aminotransferase 27 (ALT/SGPT) Alkaline Phosphatase 118 Total Protein 8.3 Albumin 2.8 Urine Color YELLOW Urine Turbidity HAZY Urine pH 6.0 Urine Specific [place] 1.018 Urine Protein GREATER THAN 600 Urine Glucose (UA) NEG Urine Ketones NEG Urine Occult Blood MOD Urine Nitrite NEG Urine Bilirubin NEG Urine Urobilinogen 2.0 Urine Leukocyte Esterase NEG Urine RBC 1 Urine WBC 2 Urine Squamous Epithelial 2 Cells Urine Amorphous Sediment FEW Urine Bacteria OCC Urine Mucus FEW Microscopic Urinalysis Comment CATH-CULTURE IND Red Cell Morphology Comment NORMAL Date/Time Procedure Status Source Growth 07/19/16 19:00 Urine Culture Received Urine Catheterized Urine Pending 07/19/16 16:00 Influenza Types A,B Antigen (ANGELINE) - Final Complete Nasal Aspirate NEGATIVE FOR FLU A AND B ANTIGEN.... 07/19/16 16:00 Group A Streptococcus Screen (ANGELINE) - Final Complete Throat Pos For Grp A Strep Antigen 07/19/16 16:00 Aerobic Blood Culture - Preliminary Resulted Blood Peripheral NO GROWTH IN 1 DAY 07/19/16 16:00 Anaerobic Blood Culture - Preliminary Resulted Blood Peripheral NO GROWTH IN 1 DAY Result Diagram: 07/20/16 0417 07/20/16 0417 Imaging RADIOLOGY STUDIES/FILMS REVIEWED Chest X-Ray 07/19/16 4235 Signed Impressions: Service Date/Time: Tuesday, July 19, 2016 17:35 - CONCLUSION: No acute disease. Sy Verdugo MD Assessment and Plan Assessment and Plan IMPRESSION Sepsis, due to Strep throat - ?if other viral CMV, EBC Leukocytosis, due to above, possibly worsened by decadron RECOMMENDATION Check CMV and EMV Check monoscreen IV Unasyn Also on Decadron Follow CBC Follow temps Follow C/S Monitor progress I will follow course and determine course of Abx Thank you for this consultation I will follow along with you Discussed Condition With Explained plan to the patient Cassi Bravo MD Jul 20, 2016 12:13
[2016-07-20] MEDS: AMPICILLIN-SULBACTAM INJ 3 GM in SODIUM CHLORIDE 0.9% INJ 100 ML IV SCH ×2 (13:58→18:18)
[2016-07-20] MEDS: PANTOPRAZOLE SODIUM 40 MG VIAL IV PUSH SCH (19:40)
[2016-07-21] VITALS: BP 161/87; PULSE 98; RESP 22; TEMP 96.2; O2SAT 97
[2016-07-21] MEDS: AMPICILLIN-SULBACTAM INJ 3 GM in SODIUM CHLORIDE 0.9% INJ 100 ML IV SCH ×4 (00:17→17:52)
[2016-07-21] MEDS: DEXAMETHASONE SOD PHOS 4 MG/ML VIAL IV PUSH SCH ×2 (06:22→13:04)
[2016-07-21] MEDS: HEPARIN SODIUM - SQ 10,000 UNITS/ML VIAL SQ SCH ×3 (06:23→21:40)
[2016-07-21 08:00] VITALS: BP 159/106; PULSE 98; RESP 18; TEMP 95.8; O2SAT 100
--- NOTE | 2016-07-21 11:45 | HHI.PR ---
Subjective Remarks Says somehow is improved, able to eat some soft food with some difficulty. Pain is controlled by meds. Swelling is improving. No n/v/d/c. No fevers overnight. Objective Vitals Vital Signs Date Time Temp Pulse Resp B/P Pulse Ox O2 Delivery O2 Flow Rate FiO2 07/21/16 08:00 95.8 98 18 159/106 100 07/21/16 00:00 96.2 98 22 161/87 97 07/20/16 20:00 96.6 110 22 133/85 96 07/20/16 18:22 Nasal Cannula 2.00 07/20/16 16:00 96.1 101 20 137/97 98 07/20/16 12:00 95.6 107 20 128/79 98 I/O 07/20/16 07/20/16 07/20/16 07/21/16 07/21/16 07/21/16 07:00 15:00 23:00 07:00 15:00 23:00 Intake Total 930 ml 680 ml 480 ml Output Total 1200 ml 1000 ml 600 ml 1150 ml Balance -270 ml -1000 ml 80 ml -670 ml Intake Oral 480 ml 480 ml 480 ml IV Total 450 ml 200 ml Output Urine Total 1200 ml 1000 ml 600 ml 1150 ml # Bowel Movements 0 0 0 Result Diagram: 07/20/1641607/20/16416 Imaging Last Impressions Chest X-Ray 07/19/16 1625 Signed Impressions: Service Date/Time: Tuesday, July 19, 2016 17:35 - CONCLUSION: No acute disease. Sy Verdugo MD Objective Remarks GENERAL: This is an obese female patient, in no apparent distress. SKIN: No rashes, ecchymoses or lesions. Cool and dry. HEAD: Atraumatic. Normocephalic. EYES: No scleral icterus. No injection or drainage. ENT: Nose without bleeding, purulent drainage. Enlarged tonsils with white exudate bilaterally. NECK: Trachea midline. No JVD. CARDIOVASCULAR: Regular rate and rhythm without murmurs, gallops, or rubs. RESPIRATORY: Clear to auscultation. Breath sounds equal bilaterally. No wheezes , rales, or rhonchi. GASTROINTESTINAL: Abdomen soft, non-tender, nondistended. No guarding. MUSCULOSKELETAL: Extremities without clubbing, cyanosis, or edema. No calf tenderness. NEUROLOGICAL: Awake and alert. Motor and sensory grossly within normal limits. Normal speech. A/P Problem List: (1) Sepsis ICD Code: A41.9 Status: Acute (2) Group A streptococcal infection ICD Code: B95.0 Status: Acute (3) UTI (urinary tract infection) ICD Code: N39.0 Status: Acute (4) Acute renal failure ICD Code: N17.9 Status: Acute (5) Hyponatremia ICD Code: E87.1 Status: Acute Assessment and Plan Ms. Deleon is a 26 year-old female with a history of asthma, depression, anxiety , hypertension, and renal failure during who presented to the ER complaining of sore throat and odynophagia x 3 days. Temperature is 101.2 in ER , pulse is 140, WBC 37.4 with left shift, abnormal UA suggestive of UTI, negative CXR. Sepsis Group A streptococcal tonsillitis Suspected UTI - Presented with temperature 101.2, pulse is 140, WBC 37.4 with left shift in ER - Abnormal UA with culture indicated; await results; negative CXR - Treated in ER with Vancomycin, Ceftriaxone, Azithromycin - NS x 4 liters bolus - Clindamycin 900 mg IV q6h, changed to IV Unasyn - Morphine 3 mg IV q3h PRN breakthrough pain - Lortab 5/325 mg - 7.5/325 mg p.o. q4h prn pain - Dexamethasone 10 mg IV x 1 dose; 4 mg IV q6h thereafter. Continue to taper down as tolerated - Consult ID - Check CMV and EMV, check monoscreen Acute renal failure - BUN 20, creatinine 2.40, eGFR 30 - Hale catheter - Monitor I and O - Recheck BMP in a.m.; follow trends in renal indices - Avoid nephrotoxins Mild Hyponatremia - initial sodium 134 - NS at 100 cc/hr - Recheck bmp in a.m. and follow sodium level Morbid obesity BMI of 56.7 . Diet and exercise, dietary f/u as oP and PCP consider bariatric surgery. DVT prophylaxis - Heparin 5000 units subq q8h Discussed with the patient and the nurse. Problem Qualifiers (1) Sepsis: Qualified Code: A41.9 - Sepsis, due to unspecified organism (2) UTI (urinary tract infection): (3) Acute renal failure: Qualified Code: N17.9 - Acute renal failure, unspecified acute renal failure type Tamia Mcucrdy MD Jul 21, 2016 11:45
[2016-07-21 12:00] VITALS: BP 136/102; PULSE 98; RESP 19; TEMP 96.3; O2SAT 98
--- NOTE | 2016-07-21 12:26 | HHI.IDPN ---
Subjective Subjective Remarks Notes reviewed Feels better Temps ok Monospot negative Creatinine better UA no cast Antibiotics Unasyn Lines PIV Past Medical History Anxiety Depression Hypertension Past Surgical History x 2 Allergies: Coded Allergies: Contrast Media (Verified Allergy, Unknown, RASH, 07/19/16) Objective . Vital Signs Date Time Temp Pulse Resp B/P Pulse Ox O2 Delivery O2 Flow Rate FiO2 07/21/16 08:00 95.8 98 18 159/106 100 07/21/16 00:00 96.2 98 22 161/87 97 07/20/16 20:00 96.6 110 22 133/85 96 07/20/16 18:22 Nasal Cannula 2.00 07/20/16 16:00 96.1 101 20 137/97 98 07/20/16 07/20/16 07/21/16 15:00 23:00 07:00 Intake Total 680 ml 480 ml Output Total 1000 ml 600 ml 1150 ml Balance -1000 ml 80 ml -670 ml Intake Oral 480 ml 480 ml IV Total 200 ml Output Urine Total 1000 ml 600 ml 1150 ml # Bowel Movements 0 0 . Laboratory Tests Test 07/19/16 07/20/16 16:00 04:17 White Blood Count 37.4 TH/MM3 40.4 TH/MM3 Red Blood Count 4.97 MIL/MM3 4.55 MIL/MM3 Hemoglobin 13.5 GM/DL 12.3 GM/DL Hematocrit 40.9 % 39.0 % Mean Corpuscular Volume 82.3 FL 85.6 FL Mean Corpuscular Hemoglobin 27.2 PG 27.1 PG Mean Corpuscular Hemoglobin 33.1 % 31.7 % Concent Red Cell Distribution Width 13.9 % 14.0 % Platelet Count 306 TH/MM3 265 TH/MM3 Mean Platelet Volume 8.7 FL 8.7 FL Neutrophils (%) (Auto) 85.5 % % Lymphocytes (%) (Auto) 8.0 % % Monocytes (%) (Auto) 6.3 % % Eosinophils (%) (Auto) 0.0 % % Basophils (%) (Auto) 0.2 % % Neutrophils # (Auto) 32.0 TH/MM3 TH/MM3 Lymphocytes # (Auto) 3.0 TH/MM3 TH/MM3 Monocytes # (Auto) 2.3 TH/MM3 TH/MM3 Eosinophils # (Auto) 0.0 TH/MM3 TH/MM3 Basophils # (Auto) 0.1 TH/MM3 TH/MM3 CBC Comment AUTO DIFF AUTO DIFF Differential Total Cells 100 100 Counted Neutrophils % (Manual) 71 % 89 % Band Neutrophils % 14 % 8 % Lymphocytes % 9 % 2 % Monocytes % 4 % 1 % Neutrophils # (Manual) 32.5 TH/MM3 39.2 TH/MM3 Metamyelocytes 2 % Differential Comment FINAL DIFF FINAL DIFF MANUAL MANUAL Platelet Estimate NORMAL NORMAL Platelet Morphology Comment NORMAL NORMAL Red Cell Morphology Comment NORMAL Laboratory Tests Test 07/19/16 07/20/16 16:00 04:17 Sodium Level 134 MEQ/L 139 MEQ/L Potassium Level 4.1 MEQ/L 4.4 MEQ/L Chloride Level 100 MEQ/L 108 MEQ/L Carbon Dioxide Level 21.9 MEQ/L 21.2 MEQ/L Anion Gap 12 MEQ/L 10 MEQ/L Blood Urea Nitrogen 20 MG/DL 20 MG/DL Creatinine 2.40 MG/DL 2.00 MG/DL Estimat Glomerular Filtration 30 ML/MIN 37 ML/MIN Rate Random Glucose 91 MG/DL 125 MG/DL Lactic Acid Level 0.8 mmol/L Calcium Level 8.6 MG/DL 8.2 MG/DL Total Bilirubin 0.8 MG/DL Aspartate Amino Transf 25 U/L (AST/SGOT) Alanine Aminotransferase 27 U/L (ALT/SGPT) Alkaline Phosphatase 118 U/L Total Protein 8.3 GM/DL Albumin 2.8 GM/DL Microbiology Date/Time Procedure Status Source Growth 07/19/16 16:00 Aerobic Blood Culture - Preliminary Resulted Blood Peripheral NO GROWTH IN 2 DAYS 07/19/16 16:00 Anaerobic Blood Culture - Preliminary Resulted Blood Peripheral NO GROWTH IN 2 DAYS 07/19/16 16:00 Aerobic Blood Culture - Preliminary Resulted Blood Peripheral NO GROWTH IN 2 DAYS 07/19/16 16:00 Anaerobic Blood Culture - Preliminary Resulted Blood Peripheral NO GROWTH IN 2 DAYS 07/19/16 16:00 Influenza Types A,B Antigen (ANGELINE) - Final Complete Nasal Aspirate NEGATIVE FOR FLU A AND B ANTIGEN.... 07/19/16 16:00 Group A Streptococcus Screen (ANGELINE) - Final Complete Throat Pos For Grp A Strep Antigen 07/19/16 19:00 Urine Culture - Final Complete Urine Catheterized Urine NO GROWTH IN 48 HOURS. Imaging Chest X-Ray 07/19/16 3817 Signed Impressions: Service Date/Time: Tuesday, July 19, 2016 17:35 - CONCLUSION: No acute disease. Sy Verdugo MD Physical Exam GENERAL: Awake and alert, not in respiratory distress SKIN: Warm and dry. No generalized rash HEENT: [place] conjunctivae. No scleral icterus. Moist oral mucosa, enlarged tonsils with white exudate. Has erythema. . NECK: Trachea midline. Has cervical tender lymphadenopathy. Supple, no meningeal signs. CARDIOVASCULAR: Regular rate and rhythm without murmurs, gallops, or rubs. RESPIRATORY: Clear to auscultation. Breath sounds equal bilaterally. No wheezes , rales, or rhonchi. GASTROINTESTINAL: Abdomen soft, obese, non-tender, nondistended. Bowel sounds are present and normoactive. MUSCULOSKELETAL: Extremities without clubbing, cyanosis, or edema. No joint effusion, or edema noted. No calf tenderness. NEUROLOGICAL: Awake and alert. 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 The rest of CN full and intact. Motor and sensory grossly within normal limits. Five out of 5 muscle strength in all muscle groups. Normal speech. PSYCH: Normal affect, calm and cooperative LINE: PIV with no evidence of infection Assessment & Plan Remarks IMPRESSION Sepsis, due to Strep throat - ?if other viral CMV, EBC Leukocytosis, due to above, possibly worsened by decadron RECOMMENDATION Follow CMV and EBV Continue IV Unasyn Also on Decadron - consider tapering Follow CBC Follow temps Follow C/S Monitor progress Renal has been consulted to evaluate her elevated creatinine If she continues to improve, will give 10 days on D/C Augmentin 500 tid Cassi Bravo MD Jul 21, 2016 12:26
--- NOTE | 2016-07-21 14:45 | PD.CONS ---
HPI Service Nephrology Consult Requested By Reason for Consult ANGELIC, Primary Care Physician Jordan Renner MD History of Present Illness This is a morbidly obese 26 y/o AAF pt who came to ER for throat pain. She was admitted for sepsis, tested positive for Group A strep. Creatinine 2.4 on arrival, which improved to 2.0 with treatment. She has heavy proteinuria. In 2012, she was and evaluated for nephrotic range proteinuria, she remembers the term "pre eclamptic" in 2 of he 4 pregnancies, denies seizures at that time, and states a renal biopsy was discussed but not done. We were consulted for renal management. She has a morin with good urine output, and is a full code. (Cecelia Duenas) Review of Systems Constitutional: COMPLAINS OF: Fatigue, Fever, DENIES: Weight gain, Change in appetite Ears, nose, mouth, throat: COMPLAINS OF: Throat pain Cardiovascular: DENIES: Chest pain Gastrointestinal: DENIES: Abdominal pain Musculoskeletal: DENIES: Joint pain (Cecelia Duenas) Past Family Social History Allergies: Coded Allergies: Contrast Media (Verified Allergy, Unknown, RASH, 07/19/16) Past Medical History HTN morbid obesity Anxiety/Depression proteinuria preeclampsia with 2 of 4 pregnancies Past Surgical History cesarian x 2 Reported Medications Trazodone (Trazodone HCl) 100 Mg Tab 100 Mg PO HS Abilify (Aripiprazole) 10 Mg Tab 10 Mg PO HS Labetalol (Labetalol HCl) 100 Mg Tab 100 Mg PO BID Active Ordered Medications Current Medications Medications (Trade) Dose Ordered Sig/Yessy Route Start Time Stop Time Status Last Admin (Tylenol) 650 mg Q4H PRN PO 07/19/16 18:45 07/21/16 08:42 (Tylenol) 650 mg Q6H PRN PO 07/19/16 18:45 07/20/16 21:49 ([place] 5-325 Mg) 1 tab Q4H PRN PO 07/19/16 18:45 ([place] 10-325 Mg) 1 tab Q4H PRN PO 07/19/16 18:45 (Morphine Inj) 3 mg Q3H PRN IV 07/19/16 18:45 (Narcan Inj) 0.4 mg UNSCH PRN IV 07/19/16 18:45 (Protonix Inj) 40 mg Q24H IV PUSH 07/19/16 21:00 07/20/16 19:40 Heparin Sodium (Porcine) 5000 units 5,000 units Q8HR SQ 07/20/16 06:00 07/21/16 13:03 (Unasyn Inj/NS Inj) 100 ml @ 200 mls/hr Q6H IV 07/20/16 13:00 07/21/16 13:03 (Decadron Inj) 4 mg Q12H IV PUSH 07/22/16 01:00 Family History Uncle on dialysis, unknown etiology mother with CKD Social History No smoking, no ETOH or drug use disabled lives with mother has 4 children, 3 live with her full code (Cecelia Duenas) Physical Exam Vital Signs Vital Signs Date Time Temp Pulse Resp B/P Pulse Ox O2 Delivery O2 Flow Rate FiO2 07/21/16 12:00 96.3 98 19 136/102 98 07/21/16 08:00 95.8 98 18 159/106 100 07/21/16 00:00 96.2 98 22 161/87 97 07/20/16 20:00 96.6 110 22 133/85 96 07/20/16 18:22 Nasal Cannula 2.00 07/20/16 16:00 96.1 101 20 137/97 98 Physical Exam Young morbidly obese AAF ambulating in room awake/oriented x 3, no neuro deficit no cervical lymphadenopathy sinus congestion, mucous membranes moist lungs clear abd: soft, non tender ext: no edema, pulses strong skin: intact Laboratory Laboratory Tests Test 07/20/16 15:57 Monoscreen NEG Date/Time Procedure Status Source Growth 07/19/16 19:00 Urine Culture - Final Complete Urine Catheterized Urine NO GROWTH IN 48 HOURS. 07/19/16 16:00 Influenza Types A,B Antigen (ANGELINE) - Final Complete Nasal Aspirate NEGATIVE FOR FLU A AND B ANTIGEN.... 07/19/16 16:00 Group A Streptococcus Screen (ANGELINE) - Final Complete Throat Pos For Grp A Strep Antigen 07/19/16 16:00 Aerobic Blood Culture - Preliminary Resulted Blood Peripheral NO GROWTH IN 2 DAYS 07/19/16 16:00 Anaerobic Blood Culture - Preliminary Resulted Blood Peripheral NO GROWTH IN 2 DAYS (Cecelia Duenas) Result Diagram: 07/20/16 0417 07/20/16 0417 Imaging Last 72 hours Impressions Chest X-Ray 07/19/16 1625 Signed Impressions: Service Date/Time: Tuesday, July 19, 2016 17:35 - CONCLUSION: No acute disease. Sy Verdugo MD (Cecelia Duenas) Assessment and Plan Problem List: (1) Acute renal failure Plan: April 2016 her creatinine measured 1.46 she has had limited oral intake for days due to sore throat renal function has improved somewhat since admission of concern is her heavy proteinuria, which she has had in the past, quantification ordered with serologies she probably has had this as a chronic issue, and may need a biopsy to determine etiology in the meantime,she good urine output, morin to be removed daily renal panel avoid nephrotoxins, medications reviewed; Decadron may raise BUN she would benefit from WANDA or ARB after renal function improves maintain BP < 140/80 (2) Group A streptococcal infection Plan: flu, mono spot and blood cx negative she is on Decadron and Unasyn (she was given vanc, rocephin, clindamycin, and zithromax since arrival) monitor clinically encourage oral intake (Cecelia Duenas) Problem List: (1) Acute renal failure (2) Group A streptococcal infection (3) Obesity, morbid, BMI 50 or higher Assessment and Plan patient was seen and examined. Acute on CKD, ARF improving. She has heavy proteinuria, we will quantify it. Serological workup ordered, but they were negative in 2011. She will need renal biopsy at some point for finding the etiology of proteinuria, but her body habitus will make percutaneous biopsy difficult. (Fausto Rocha MD) Problem Qualifiers (1) Acute renal failure: Qualified Code: N17.9 - Acute renal failure, unspecified acute renal failure type Cecelia Duenas Jul 21, 2016 14:45 Fausto Rocha MD Jul 21, 2016 16:44
[2016-07-21 16:00] VITALS: BP 153/99; PULSE 100; RESP 19; TEMP 96.2; O2SAT 94
[2016-07-21 20:00] VITALS: BP 144/89; PULSE 100; RESP 20; TEMP 96; O2SAT 98
[2016-07-21] MEDS: PANTOPRAZOLE SODIUM 40 MG VIAL IV PUSH SCH (21:40)
[2016-07-22] VITALS: BP 114/64; PULSE 97; RESP 20; TEMP 96; O2SAT 98
[2016-07-22] MEDS: DEXAMETHASONE SOD PHOS 4 MG/ML VIAL IV PUSH SCH ×2 (00:32→11:31)
[2016-07-22] MEDS: AMPICILLIN-SULBACTAM INJ 3 GM in SODIUM CHLORIDE 0.9% INJ 100 ML IV SCH ×4 (00:32→18:24)
[2016-07-22 00:54] LABS: EBV VCA IgM Negative (Negative)
[2016-07-22] MEDS: HEPARIN SODIUM - SQ 10,000 UNITS/ML VIAL SQ SCH ×3 (06:00→20:27)
[2016-07-22 08:00] VITALS: BP 120/90; PULSE 96; RESP 20; TEMP 96.9; O2SAT 96
[2016-07-22 08:29] VITALS: O2SAT 99
[2016-07-22 11:32] LABS: AUTOMATED NEUTROPHIL # 12.6 TH/MM3 (1.8-7.7); BASOPHIL # 0.1 TH/MM3 (0-0.2); BASOPHIL % 0.6 % (0.0-2.0); HEMATOCRIT 37.8 % (35.0-46.0); LYMPH % 18.9 % (9.0-44.0); LYMPHOCYTE # 3.1 TH/MM3 (1.0-4.8); MEAN CELL VOLUME 83.6 FL (80.0-100.0); MEAN CORPUSCULAR HEMOGLOBIN 26.9 PG (27.0-34.0); MEAN CORPUSCULAR HGB CONC 32.1 % (32.0-36.0); MONO % 4.4 % (0.0-8.0); NEUT % 76.1 % (16.0-70.0); PLATELET COUNT 367 TH/MM3 (150-450); RED BLOOD COUNT 4.53 MIL/MM3 (4.00-5.30); RED CELL DISTRIBUTION WIDTH 14.1 % (11.6-17.2); WHITE BLOOD COUNT 16.6 TH/MM3 (4.0-11.0)
[2016-07-22 11:36] LABS: HEMO FLAGS AUTO DIFF
[2016-07-22 12:00] VITALS: BP 155/76; PULSE 109; RESP 17; TEMP 96.6; O2SAT 95
[2016-07-22 13:35] LABS: TOTAL PROTEIN SPE 6.9 GM/DL (6.0-7.6)
[2016-07-22 13:51] LABS: SCAN/DIFF AUTO DIFF CONFIRMED
--- NOTE | 2016-07-22 14:26 | HHI.PR ---
Subjective Remarks Eating better today. Feels tired. Has noisy breathing but is satting well on room air. No fever or chills overnight. Objective Vitals Vital Signs Date Time Temp Pulse Resp B/P Pulse Ox O2 Delivery O2 Flow Rate FiO2 07/22/16 12:00 96.6 109 17 155/76 95 07/22/16 08:29 99 21 07/22/16 08:00 96.9 96 20 120/90 96 07/22/16 00:00 96.0 97 20 114/64 98 07/21/16 20:00 96.0 100 20 144/89 98 07/21/16 16:16 2.00 07/21/16 16:00 96.2 100 19 153/99 94 I/O 07/21/16 07/21/16 07/21/16 07/22/16 07/22/16 07/22/16 07:00 15:00 23:00 07:00 15:00 23:00 Intake Total 480 ml 1025 ml 480 ml 0 ml 120 ml Output Total 1150 ml 525 ml 600 ml 1000 ml Balance -670 ml 500 ml -120 ml -1000 ml 120 ml Intake Oral 480 ml 1025 ml 480 ml 0 ml 120 ml Output Urine Total 1150 ml 525 ml 600 ml 1000 ml # Bowel Movements 0 1 Result Diagram: 07/22/16 1118 07/20/16 0417 Imaging Last Impressions Chest X-Ray 07/19/16 1625 Signed Impressions: Service Date/Time: Tuesday, July 19, 2016 17:35 - CONCLUSION: No acute disease. Sy Verdugo MD Objective Remarks GENERAL: This is an obese female patient, in no apparent distress. SKIN: No rashes, ecchymoses or lesions. Cool and dry. HEAD: Atraumatic. Normocephalic. EYES: No scleral icterus. No injection or drainage. ENT: Nose without bleeding, purulent drainage. Enlarged tonsils with white exudate bilaterally. NECK: Trachea midline. No JVD. CARDIOVASCULAR: Regular rate and rhythm without murmurs, gallops, or rubs. RESPIRATORY: Clear to auscultation. Breath sounds equal bilaterally. No wheezes , rales, or rhonchi. GASTROINTESTINAL: Abdomen soft, non-tender, nondistended. No guarding. MUSCULOSKELETAL: Extremities without clubbing, cyanosis, or edema. No calf tenderness. NEUROLOGICAL: Awake and alert. Motor and sensory grossly within normal limits. Normal speech. A/P Problem List: (1) Sepsis ICD Code: A41.9 Status: Acute (2) Group A streptococcal infection ICD Code: B95.0 Status: Acute (3) UTI (urinary tract infection) ICD Code: N39.0 Status: Acute (4) Acute renal failure ICD Code: N17.9 Status: Acute (5) Hyponatremia ICD Code: E87.1 Status: Acute Assessment and Plan Ms. Deleon is a 26 year-old female with a history of asthma, depression, anxiety , hypertension, and renal failure during who presented to the ER complaining of sore throat and odynophagia x 3 days. Temperature is 101.2 in ER , pulse is 140, WBC 37.4 with left shift, abnormal UA suggestive of UTI, negative CXR. Sepsis Group A streptococcal tonsillitis Suspected UTI - Presented with temperature 101.2, pulse is 140, WBC 37.4 with left shift in ER - Abnormal UA with culture indicated; await results; negative CXR - Treated in ER with Vancomycin, Ceftriaxone, Azithromycin - NS x 4 liters bolus - Clindamycin 900 mg IV q6h, changed to IV Unasyn - Morphine 3 mg IV q3h PRN breakthrough pain - Lortab 5/325 mg - 7.5/325 mg p.o. q4h prn pain - Dexamethasone 10 mg IV x 1 dose; 4 mg IV q6h thereafter. Continue to taper down as tolerated - Consult ID - Check CMV and EMV, check monoscreen Acute renal failure - BUN 20, creatinine 2.40, eGFR 30 - Hale catheter - Monitor I and O - Recheck BMP in a.m.; follow trends in renal indices - Avoid nephrotoxins Mild Hyponatremia - initial sodium 134 - NS at 100 cc/hr - Recheck bmp in a.m. and follow sodium level Morbid obesity BMI of 56.7 . Diet and exercise, dietary f/u as oP and PCP consider bariatric surgery. DVT prophylaxis - Heparin 5000 units subq q8h Discussed with the patient and the nurse. Discharge when improved and cleared by ID specialist Problem Qualifiers (1) Sepsis: Qualified Code: A41.9 - Sepsis, due to unspecified organism (2) UTI (urinary tract infection): (3) Acute renal failure: Qualified Code: N17.9 - Acute renal failure, unspecified acute renal failure type Tamia Mccurdy MD Jul 22, 2016 14:26
--- NOTE | 2016-07-22 15:55 | HHI.NPPN ---
Subjective Renal Failure: Acute Objective Data Data 07/21/16 07/22/16 19:00 07:00 Intake Total 1025 ml 480 ml Output Total 525 ml 1600 ml Balance 500 ml -1120 ml Intake Oral 1025 ml 480 ml Output Urine Total 525 ml 1600 ml # Bowel Movements 1 Vital Signs Date Time Temp Pulse Resp B/P Pulse Ox O2 Delivery O2 Flow Rate FiO2 07/22/16 12:00 96.6 109 17 155/76 95 07/22/16 08:29 99 21 07/22/16 08:00 96.9 96 20 120/90 96 07/22/16 00:00 96.0 97 20 114/64 98 07/21/16 20:00 96.0 100 20 144/89 98 07/21/16 16:16 2.00 07/21/16 16:00 96.2 100 19 153/99 94 -: 07/22/16 1118 07/20/16 0417 Physical Exam General Appearance: Well Developed Neck Neck Exam: Neck Supple Pulmonary Resp Exam: Clear Bilaterally Cardiology CV Exam: Regular Gastrointestinal/Abdomen GI Exam: Soft, Non-Tender Extremeties Extremities Exam: Moderate Edema Neurologic Neuro Exam: Alert Assessment/Plan Problem List: (1) Acute renal failure Plan: work up in progress order Kidney US may need biopsy Dr. Rocha to follow (2) Group A streptococcal infection (3) Obesity, morbid, BMI 50 or higher Problem Qualifiers (1) Acute renal failure: Qualified Code: N17.9 - Acute renal failure, unspecified acute renal failure type Mic Solorio MD Jul 22, 2016 15:55
[2016-07-22 16:00] VITALS: BP 132/83; PULSE 108; RESP 20; TEMP 97.4; O2SAT 96
[2016-07-22 20:00] VITALS: BP 151/91; PULSE 101; RESP 20; TEMP 97.9; O2SAT 99
[2016-07-22] MEDS: PANTOPRAZOLE SODIUM 40 MG VIAL IV PUSH SCH (20:28)
--- NOTE | 2016-07-22 23:02 | RADRPT ---
EXAM DATE/TIME: 07/22/2016 21:40 [facility] COMPARISON: US KIDNEY/RENAL/BLADDER, February 28, 2012, 15:25. INDICATIONS : Increased BUN and Creatinine. MEDICAL HISTORY : Hypertension. . Asthma. Acute renal failure with . Depression. Anxiety. Suicide a ttempt. Blood transfusion. SURGICAL HISTORY : section. ENCOUNTER: Initial ACUITY: 1 day PAIN SCORE: 0/10 LOCATION: Bilateral flank MEASUREMENTS: RIGHT KIDNEY: 9.9 x 5.3 x 4.4 cm LEFT KIDNEY: 10.8 x 5.2 x 5.4 cm FINDINGS: The kidneys demonstrates increased echogenicity of the cortex compatible with medical renal disease. No hydronephrosis or mass lesions are identified. The bladder appears normal. No wall thickening or i ntraluminal masses are identified. CONCLUSION: 1. Echogenic kidneys bilaterally compatible with medical renal disease. Jerome Wisdom MD on July 22, 2016 at 23:00 Board Certified Radiologist. This report was verified electronically.
[2016-07-23] VITALS: BP 151/99; PULSE 107; RESP 20; TEMP 96.8; O2SAT 99
[2016-07-23] MEDS: AMPICILLIN-SULBACTAM INJ 3 GM in SODIUM CHLORIDE 0.9% INJ 100 ML IV SCH ×4 (00:58→18:29)
[2016-07-23] MEDS: DEXAMETHASONE SOD PHOS 4 MG/ML VIAL IV PUSH SCH ×2 (00:58→13:17)
[2016-07-23] MEDS: HEPARIN SODIUM - SQ 10,000 UNITS/ML VIAL SQ SCH ×3 (04:08→20:36)
[2016-07-23] MEDS: ACETAMINOPHEN 325 MG TAB PO PRN (04:08)
[2016-07-23 07:10] LABS: AUTOMATED NEUTROPHIL # 19.4 TH/MM3 (1.8-7.7); BASOPHIL # 0.1 TH/MM3 (0-0.2); BASOPHIL % 0.3 % (0.0-2.0); HEMATOCRIT 37.2 % (35.0-46.0); LYMPHOCYTE # 3.4 TH/MM3 (1.0-4.8); MEAN CELL VOLUME 83.3 FL (80.0-100.0); MEAN CORPUSCULAR HEMOGLOBIN 26.9 PG (27.0-34.0); MEAN CORPUSCULAR HGB CONC 32.3 % (32.0-36.0); MONO % 5.3 % (0.0-8.0); NEUT % 80.4 % (16.0-70.0); PLATELET COUNT 333 TH/MM3 (150-450); RED BLOOD COUNT 4.47 MIL/MM3 (4.00-5.30); RED CELL DISTRIBUTION WIDTH 13.9 % (11.6-17.2); WHITE BLOOD COUNT 24.1 TH/MM3 (4.0-11.0)
[2016-07-23 07:33] LABS: BICARBONATE 27.3 MEQ/L (21.0-32.0); POTASSIUM 5.1 MEQ/L (3.5-5.1)
[2016-07-23 08:00] VITALS: BP 171/87; PULSE 99; RESP 17; TEMP 97.5; O2SAT 96
[2016-07-23 08:01] LABS: HEMO FLAGS AUTO DIFF
[2016-07-23 08:18] VITALS: O2SAT 98
--- NOTE | 2016-07-23 10:31 | HHI.PR ---
Subjective Remarks Feels tired. Noisy breathing, however she is satting well on room air. No sob. Pain is controlled by meds. Swelling improved and she tolerates soft diet better. No fever or chills. Objective Vitals Vital Signs Date Time Temp Pulse Resp B/P Pulse Ox O2 Delivery O2 Flow Rate FiO2 07/23/16 08:18 98 21 07/23/16 08:00 97.5 99 17 171/87 96 07/23/16 00:00 96.8 107 20 151/99 99 07/22/16 21:36 21 07/22/16 20:00 97.9 101 20 151/91 99 07/22/16 16:00 97.4 108 20 132/83 96 07/22/16 12:00 96.6 109 17 155/76 95 I/O 07/22/16 07/22/16 07/22/16 07/23/16 07/23/16 07/23/16 07:00 15:00 23:00 07:00 15:00 23:00 Intake Total 0 ml 1220 ml 720 ml 440 ml 240 ml Output Total 1000 ml 800 ml 500 ml 1700 ml Balance -1000 ml 420 ml 220 ml -1260 ml 240 ml Intake Oral 0 ml 1120 ml 720 ml 240 ml 240 ml IV Total 100 ml 0 ml 200 ml Output Urine Total 1000 ml 800 ml 500 ml 1700 ml # Bowel Movements 2 Result Diagram: 07/23/16 0628 07/23/16 0628 Imaging Last Impressions Chest X-Ray 07/19/16 1625 Signed Impressions: Service Date/Time: Tuesday, July 19, 2016 17:35 - CONCLUSION: No acute disease. Sy Verdugo MD Objective Remarks GENERAL: This is an obese female patient, in no apparent distress. SKIN: No rashes, ecchymoses or lesions. Cool and dry. HEAD: Atraumatic. Normocephalic. EYES: No scleral icterus. No injection or drainage. ENT: Nose without bleeding, purulent drainage. Enlarged tonsils with white exudate bilaterally. NECK: Trachea midline. No JVD. CARDIOVASCULAR: Regular rate and rhythm without murmurs, gallops, or rubs. RESPIRATORY: Clear to auscultation. Breath sounds equal bilaterally. No wheezes , rales, or rhonchi. GASTROINTESTINAL: Abdomen soft, non-tender, nondistended. No guarding. MUSCULOSKELETAL: Extremities without clubbing, cyanosis, or edema. No calf tenderness. NEUROLOGICAL: Awake and alert. Motor and sensory grossly within normal limits. Normal speech. A/P Problem List: (1) Sepsis ICD Code: A41.9 Status: Acute (2) Group A streptococcal infection ICD Code: B95.0 Status: Acute (3) UTI (urinary tract infection) ICD Code: N39.0 Status: Acute (4) Acute renal failure ICD Code: N17.9 Status: Acute (5) Hyponatremia ICD Code: E87.1 Status: Acute Assessment and Plan Ms. Deleon is a 26 year-old female with a history of asthma, depression, anxiety , hypertension, and renal failure during who presented to the ER complaining of sore throat and odynophagia x 3 days. Temperature is 101.2 in ER , pulse is 140, WBC 37.4 with left shift, abnormal UA suggestive of UTI, negative CXR. Sepsis Group A streptococcal tonsillitis Suspected UTI - Presented with temperature 101.2, pulse is 140, WBC 37.4 with left shift in ER - Abnormal UA with culture indicated; await results; negative CXR - Treated in ER with Vancomycin, Ceftriaxone, Azithromycin - NS x 4 liters bolus - Clindamycin 900 mg IV q6h, changed to IV Unasyn - Morphine 3 mg IV q3h PRN breakthrough pain - Lortab 5/325 mg - 7.5/325 mg p.o. q4h prn pain - Dexamethasone 10 mg IV x 1 dose; 4 mg IV q6h thereafter. Continue to taper down as tolerated - Consult ID - Check CMV and EMV, check monoscreen Acute renal failure - BUN 20, creatinine 2.40, eGFR 30 - Hale catheter - Monitor I and O - Recheck BMP in a.m.; follow trends in renal indices - Avoid nephrotoxins Mild Hyponatremia - initial sodium 134 - NS at 100 cc/hr - Recheck bmp in a.m. and follow sodium level Morbid obesity BMI of 56.7 . Diet and exercise, dietary f/u as oP and PCP consider bariatric surgery. DVT prophylaxis - Heparin 5000 units subq q8h Discussed with the patient and the nurse. Discharge when improved and cleared by ID specialist Problem Qualifiers (1) Sepsis: Qualified Code: A41.9 - Sepsis, due to unspecified organism (2) UTI (urinary tract infection): (3) Acute renal failure: Qualified Code: N17.9 - Acute renal failure, unspecified acute renal failure type Tamia Mccurdy MD Jul 23, 2016 10:31
--- NOTE | 2016-07-23 10:33 | HHI.DCPOC ---
Discharge Care Plan Goals to Promote Your Health * To prevent worsening of your condition and complications * To maintain your health at the optimal level Directions to Meet Your Goals Take your medications as prescribed Follow your dietary instruction Follow activity as directed Keep your appointments as scheduled Take your immunizations and boosters as scheduled If your symptoms worsen call your PCP, if no PCP go to Urgent Care Center or Emergency Room Smoking is Dangerous to Your Health. Avoid second hand smoke Call the 24-hour hour crisis hotline for domestic abuse at Tamia Mccurdy MD Jul 23, 2016 10:33
--- NOTE | 2016-07-23 10:33 | HHI.DS ---
Discharge Summary Admission Date Jul 19, 2016 at 18:37 Discharge Date: Jul 24, 2016 Admitting Diagnosis Sepsis (1) Sepsis ICD Code: A41.9 Diagnosis: Principal (2) Group A streptococcal infection ICD Code: B95.0 Diagnosis: Principal (3) UTI (urinary tract infection) ICD Code: N39.0 Diagnosis: Principal (4) Acute renal failure ICD Code: N17.9 Diagnosis: Principal (5) Hyponatremia ICD Code: E87.1 Diagnosis: Principal Procedures None Brief History - From Admission Ms. Deleon is a 26 year-old female with a history of asthma, depression, anxiety , hypertension, and renal failure during who presented to the ER complaining of sore throat and odynophagia x 3 days. Temperature is 101.2 in ER , pulse is 140, WBC 37.4 with left shift, abnormal UA suggestive of UTI, negative CXR. The patient is seen in the ER. She complains of severe sore throat, odynophagia , and headache x 3 days not relieved by anything and resulting in minimal p.o. intake due to pain. Sore throat is accompanied by cough with minimal sputum production. The patient reports having diarrhea since arrival in ER. No black or bloody stool. Denies hematuria or dysuria. Denies history of asthma, respiratory or cardiac disorders, diabetes mellitus, DVT, PE, CVA, seizures, cancer, or thyroid dysfunction. . CBC/BMP: 07/23/16 0628 07/23/16 0628 Significant Findings Laboratory Tests Test 07/22/16 07/23/16 11:18 06:28 White Blood Count 16.6 TH/MM3 24.1 TH/MM3 (4.0-11.0) (4.0-11.0) Mean Corpuscular Hemoglobin 26.9 PG 26.9 PG (27.0-34.0) (27.0-34.0) Neutrophils (%) (Auto) 76.1 % 80.4 % (16.0-70.0) (16.0-70.0) Neutrophils # (Auto) 12.6 TH/MM3 19.4 TH/MM3 (1.8-7.7) (1.8-7.7) Complement C3 199 MG/DL (90-180) Complement C4 48 MG/DL (10-40) Monocytes # (Auto) 1.3 TH/MM3 (0-0.9) Creatinine 1.42 MG/DL (0.50-1.00) Estimat Glomerular Filtration 55 ML/MIN (>89) Rate Random Glucose 107 MG/DL (74-106) Calcium Level 8.4 MG/DL (8.5-10.1) Imaging Last Impressions Renal Ultrasound 07/22/16 0000 Signed Impressions: Service Date/Time: Friday, July 22, 2016 21:40 - CONCLUSION: 1. Echogenic kidneys bilaterally compatible with medical renal disease. Jerome Wisdom MD Chest X-Ray 07/19/16 1625 Signed Impressions: Service Date/Time: Tuesday, July 19, 2016 17:35 - CONCLUSION: No acute disease. Sy Verdugo MD PE at Discharge GENERAL: This is an obese female patient, in no apparent distress. SKIN: No rashes, ecchymoses or lesions. Cool and dry. HEAD: Atraumatic. Normocephalic. EYES: No scleral icterus. No injection or drainage. ENT: Nose without bleeding, purulent drainage. Enlarged tonsils with white exudate bilaterally. NECK: Trachea midline. No JVD. CARDIOVASCULAR: Regular rate and rhythm without murmurs, gallops, or rubs. RESPIRATORY: Clear to auscultation. Breath sounds equal bilaterally. No wheezes , rales, or rhonchi. GASTROINTESTINAL: Abdomen soft, non-tender, nondistended. No guarding. MUSCULOSKELETAL: Extremities without clubbing, cyanosis, or edema. No calf tenderness. NEUROLOGICAL: Awake and alert. Motor and sensory grossly within normal limits. Normal speech. Pt update on day of discharge Feels much better. Tolerates food. no fever or chills. Kidney fx improving. Feels comfortable to go home. Hospital Course Ms. Deleon is a 26 year-old female with a history of asthma, depression, anxiety , hypertension, and renal failure during who presented to the ER complaining of sore throat and odynophagia x 3 days. Temperature is 101.2 in ER , pulse is 140, WBC 37.4 with left shift, abnormal UA suggestive of UTI, negative CXR. Sepsis Group A streptococcal tonsillitis Suspected UTI - Presented with temperature 101.2, pulse is 140, WBC 37.4 with left shift in ER - Abnormal UA with culture indicated; await results; negative CXR - Treated in ER with Vancomycin, Ceftriaxone, Azithromycin - NS x 4 liters bolus - Clindamycin 900 mg IV q6h, changed to IV Unasyn - Morphine 3 mg IV q3h PRN breakthrough pain - Lortab 5/325 mg - 7.5/325 mg p.o. q4h prn pain - Dexamethasone 10 mg IV x 1 dose; 4 mg IV q6h thereafter. Continue to taper down as tolerated - Consult ID - Check CMV and EMV, check monoscreen - + EBV no contact sports. - Taper down steroids. Acute renal failure - BUN 20, creatinine 2.40, eGFR 30 - Hale catheter - Monitor I and O - Recheck BMP in a.m.; follow trends in renal indices - Avoid nephrotoxins Mild Hyponatremia - initial sodium 134 - NS at 100 cc/hr - Recheck bmp in a.m. and follow sodium level Morbid obesity BMI of 56.7 . Diet and exercise, dietary f/u as oP and PCP consider bariatric surgery. DVT prophylaxis - Heparin 5000 units subq q8h Patient improved. She is able to tolerate food. Her kidney function improved. Was cleared for DC by specialists. To follow up as OP with PCP and consultants. Pt Condition on Discharge: Fair Discharge Disposition: Discharge Home Discharge Time: > 30 minutes Discharge Instructions DIET: Follow Instructions for: Heart Healthy Diet Activities you can perform: Regular-No Restrictions Follow up Referrals: Nephrology - 07/30/16 with Fausto Rocha MD PCP Follow-up - 3-5 Days New Medications: Amoxicillin-Clavulanate (Augmentin) 500-125 mg Tab 500 MG PO Q8H Infection #30 Ref 0 TAB Prednisone (21) 10 mg tab Dose Pack (Prednisone (21) 10 mg tab Dose Pack) 10 Mg Pack 10 MG PO DIRECTED Inflammation #1 Ref 0 DSPK Continued Medications: Aripiprazole (Abilify) 10 Mg Tab 10 MG PO HS #30 Ref 0 TAB Labetalol (Labetalol) 100 Mg Tab 100 MG PO BID Blood Pressure Management Ref 0 TAB Trazodone (Trazodone) 100 Mg Tab 100 MG PO HS Control Depression #30 Ref 0 TAB Tamia Mccurdy MD Jul 23, 2016 10:33
[2016-07-23 10:46] LABS: SCAN/DIFF AUTO DIFF CONFIRMED
[2016-07-23 11:57] VITALS: BP 147/77; PULSE 104; RESP 19; TEMP 96.9; O2SAT 95
--- NOTE | 2016-07-23 15:18 | HHI.NPPN ---
Subjective Renal Failure: Acute Objective Data Data 07/22/16 07/23/16 19:00 07:00 Intake Total 1220 ml 1160 ml Output Total 800 ml 2200 ml Balance 420 ml -1040 ml Intake Oral 1120 ml 960 ml IV Total 100 ml 200 ml Output Urine Total 800 ml 2200 ml # Bowel Movements 2 Vital Signs Date Time Temp Pulse Resp B/P Pulse Ox O2 Delivery O2 Flow Rate FiO2 07/23/16 11:57 96.9 104 19 147/77 95 07/23/16 08:18 98 21 07/23/16 08:00 97.5 99 17 171/87 96 07/23/16 00:00 96.8 107 20 151/99 99 07/22/16 21:36 21 07/22/16 20:00 97.9 101 20 151/91 99 07/22/16 16:00 97.4 108 20 132/83 96 -: 07/23/16 0628 07/23/16 0628 Physical Exam General Appearance: Well Developed Neck Neck Exam: Neck Supple Pulmonary Resp Exam: Clear Bilaterally Cardiology CV Exam: Regular Gastrointestinal/Abdomen GI Exam: Soft, Non-Tender Extremeties Extremities Exam: Moderate Edema Neurologic Neuro Exam: Alert Assessment/Plan Problem List: (1) Acute renal failure Plan: significant proteinuria US Kidneys bilateral increased echogenicity work up in progress order Kidney US may need biopsy Dr. Rocha to follow (2) Group A streptococcal infection (3) Obesity, morbid, BMI 50 or higher Problem Qualifiers (1) Acute renal failure: Qualified Code: N17.9 - Acute renal failure, unspecified acute renal failure type Mic Solorio MD Jul 23, 2016 15:18
[2016-07-23 16:00] VITALS: BP 129/78; PULSE 121; RESP 17; TEMP 98.1; O2SAT 97
[2016-07-23 20:00] VITALS: BP 162/97; PULSE 121; RESP 18; TEMP 96.6; O2SAT 98
[2016-07-23] MEDS: PANTOPRAZOLE SODIUM 40 MG VIAL IV PUSH SCH (20:36)
[2016-07-24] VITALS: BP 147/94; PULSE 102; RESP 18; TEMP 96.2; O2SAT 99
[2016-07-24] MEDS: AMPICILLIN-SULBACTAM INJ 3 GM in SODIUM CHLORIDE 0.9% INJ 100 ML IV SCH ×2 (01:00→06:34)
[2016-07-24] MEDS: DEXAMETHASONE SOD PHOS 4 MG/ML VIAL IV PUSH SCH (01:13)
[2016-07-24] MEDS: HEPARIN SODIUM - SQ 10,000 UNITS/ML VIAL SQ SCH (06:33)
[2016-07-24] MEDS ORDERED: PRED10PA PO (07:53)
[2016-07-24] MEDS ORDERED: AUGM500T7 PO (07:57)
[2016-07-24 08:00] VITALS: BP_SYST 152; BP_SYST 175; BP_DIAS 116; BP_DIAS 98; PULSE 97; RESP 20; TEMP 98.7; O2SAT 97
[2016-07-24] MEDS ORDERED: DEXAMETHASONE SOD PHOS 4 MG/ML VIAL IV PUSH SCH (09:00)
[2016-07-24 20:31] LABS: ALBUMIN SPE 2.86 GM/DL (3.50-5.00); ALPHA 1 GLOBULIN 0.35 GM/DL (0.11-0.29); ALPHA 2 GLOBULIN 1.32 GM/DL (0.22-1.00); BETA GLOBULINS (SPE) 1.13 GM/DL (0.53-1.03)
[2016-07-24] MEDS ORDERED: PANTOPRAZOLE SOD 40 MG DELAYED RELEASE TAB PO SCH (21:00)
[2016-07-26 15:56] LABS: MYELOPEROXIDASE LESS THAN 1.0 AI (<1.0); PROTEINASE-3 LESS THAN 1.0 AI (<1.0)
== END 2016-07-24 10:54 | disposition home or self-care (01) | DRG 872 ==
LOC: NEPC 15:16 → NEDA 18:37 → N07B 21:21
PROVIDERS: ADMIT Hospitalist; ATTEND Hospitalist
DX: A41.9 Sepsis, unspecified organism (principal); N17.9 Acute kidney failure, unspecified; E87.1 Hypo-osmolality and hyponatremia; Z68.43 Body mass index [BMI] 50.0-59.9, adult; N39.0 Urinary tract infection, site not specified; J03.00 Acute streptococcal tonsillitis, unspecified; E66.01 Morbid (severe) obesity due to excess calories; J45.909 Unspecified asthma, uncomplicated; F32.9 Major depressive disorder, single episode, unspecified; F41.9 Anxiety disorder, unspecified; I12.9 Hypertensive chronic kidney disease with stage 1 through stage 4 chronic kidney disease, or unspecified chronic kidney disease; N18.9 Chronic kidney disease, unspecified; Z23 Encounter for immunization
CPT/HCPCS: 71010; 76775; 76937; 80048; 80053; 81001; 82043; 83605; 84165; 84703; 85007; 85025; 85027; 85610; 85730; 86021; 86038; 86160; 86308; 86664; 86665; 86803; 87040; 87086; 87340; 87496; 87804; 87880; 90471; 90472; 90686; 90732; 93005; 94620; 94640; 94664; 96360; 96361; 96365; 96367; 96375; C9113; G0008; G0009; J0295; J0456; J0696; J1100; J1644; J2930; J3370; J7030; J7050; Q2038

== ENCOUNTER 2017-01-17 17:31 | Emergency (ER) | payer MEDICAID ==
[~2017-01-17] VITALS: Ht 152.4 cm; Wt 138.5 kg
[~2017-01-17 17:31] MED LIST changes: -ABIL5TAB6 PO; +ARIP1TAB5 PO; +AUGM500T7 PO; -LABE100 PO; +LABE100T2 PO; -METO10TA PO; +PRED10PA PO; +TRAZ100T4 PO; -TRAZ50TA4 PO
[2017-01-17 17:33] VITALS: BP 186/115; PULSE 112; RESP 24; TEMP 98.7; O2SAT 97
--- NOTE | 2017-01-17 18:03 | PD ---
Physical Exam Date Seen by Provider: Jan 17, 2017 Time Seen by Provider: 18:01 Narrative 26 yo female here for evaluation of fall. No LOC but complains of back, left knee and head pain. Able to ambulate. Pain is 8/10. Happened today. No cuts. No other complains. Vitals are stable except for slight tachycardia and hypertension. Awaiting bed placement. Data Data Last Documented VS Vital Signs Date Time Temp Pulse Resp B/P Pulse Ox O2 Delivery O2 Flow Rate FiO2 01/17/17 17:33 98.7 112 24 186/115 97 Room Air [facility] Medical Record Reviewed: Yes Supervised Visit with AMY: No Christopher Mckeon Jan 17, 2017 18:03
[2017-01-17] MEDS ORDERED: ONDANSETRON ODT 4 MG TAB PO ONE (18:15)
[2017-01-17] MEDS ORDERED: ACETAMINOPHEN/HYDROcodone 325 MG/5 MG TAB PO ONE (19:15)
--- NOTE | 2017-01-17 19:20 | PD ---
HPI Chief Complaint: Fall Time Seen by Provider: 19:16 Travel History International Travel<30 days: No Contact w/Intl Traveler<30days: No Traveled to known affect area: No History of Present Illness HPI 26-year-old black female presents to emergency department for evaluation of a fall. She states that she slipped and fell down a flight of stairs. She states that she struck her left forehead but was not knocked unconscious. Since the injury this afternoon sometime after 3:00 she's had persistent headache, nausea and dizziness. She denies any focal numbness, tingling or weakness. Patient reports that she does have some chronic back pain which was was guesstimated by the fall as well. Patient denies injury to her neck or upper back. No extremity injury. Pain is 8/10. PFSH Past Medical History Asthma: Yes Autoimmune Disease: No Blood Disorders: No Anxiety: Yes Depression: Yes Heart Rhythm Problems: No Cancer: No Cardiovascular Problems: Yes Chemotherapy: No Chest Pain: No Cystic Fibrosis: No Diabetes: No Diminished Hearing: No Endocrine: No Gastrointestinal Disorders: Yes Genitourinary: Yes Headaches: No Hypertension: Yes Immune Disorder: No Musculoskeletal: No Neurologic: No Psychiatric: Yes (DEPRESSION, ANXIETY) Reproductive: No Respiratory: No Immunizations Current: No Renal Failure: Yes (DURING LAST ) Seizures: No Sickle Cell Disease: No Sleep Apnea: No Thyroid Disease: No Ulcer: No Tetanus Vaccination: < 5 Years ?: Not Menopausal: No : 4 Para: 3 Miscarriage: 0 Ectopic : No Ovarian Cysts: No Dilation and Curettage (D&C): No Tubal Ligation: No Past Surgical History Abdominal Surgery: Yes ( X 2) Section: Yes (2012) Gynecologic Surgery: Yes Hysterectomy: No Other Surgery: Yes Social History Alcohol Use: No Tobacco Use: No Substance Use: No Allergies-Medications (Allergen,Severity, Reaction): Coded Allergies: Contrast Media (Verified Allergy, Unknown, RASH, 01/17/17) Reported Meds & Prescriptions Reported Meds & Active Scripts Active Lortab (Hydrocodone-Acetaminophen) 5-325 Mg Tab 1 Tab PO Q8HR PRN Flexeril (Cyclobenzaprine HCl) 10 Mg Tab 10 Mg PO TID Reported Abilify (Aripiprazole) 10 Mg Tab 10 Mg PO HS Labetalol (Labetalol HCl) 100 Mg Tab 100 Mg PO BID Review of Systems Except as stated in HPI: all other systems reviewed are Neg Physical Exam Narrative GENERAL: Well-developed, well-nourished in no apparent distress. Nontoxic appearing. HEAD: Normocephalic, patient has tenderness to the left eyebrow. The skin is intact. Minimal swelling. EYES: Pupils equal round and reactive. Extraocular motions intact. No scleral icterus. No injection or drainage. ENT: Nose clear. Throat without erythema, tonsillar hypertrophy or exudate. Uvula midline. Airway patent. NECK: Trachea midline. Supple, nontender, moves head freely. No central bony tenderness or spasm. CARDIOVASCULAR: Regular rate and rhythm without murmurs, gallops, or rubs. RESPIRATORY: Clear to auscultation. Breath sounds equal bilaterally. No wheezes , rales, or rhonchi. GASTROINTESTINAL: Abdomen soft, non-tender, nondistended. No hepato-splenomegaly , or palpable masses. No guarding. EXTREMITIES: No clubbing, cyanosis, or edema. No joint tenderness. BACK: Diffuse lower lumbar tenderness without point localization sits up in bed at 90. No saddle anesthesia. Without deformity. No flank tenderness. NEUROLOGICAL: Awake, alert and oriented x 3 .Cranial nerves grossly intact. 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 Nothing new. Motor and sensory grossly within normal limits. Normal speech. Data Data Last Documented VS Vital Signs Date Time Temp Pulse Resp B/P Pulse Ox O2 Delivery O2 Flow Rate FiO2 01/17/17 17:33 98.7 112 24 186/115 97 Room Air Orders Ondansetron Odt (Zofran Odt) (01/17/17 18:15) Ct Brain W/O Iv Contrast(Rout) (01/17/17 18:14) Acetamin-Hydrocod 325-5 Mg (Cameron 5-325 (01/17/17 19:15) MDM Medical Decision Making Medical Screen Exam Complete: Yes Emergency Medical Condition: Yes Medical Record Reviewed: Yes Interpretation(s) CT brain: Negative for acute intercranial injury Differential Diagnosis MDM: High Differential diagnoses: Fracture, sprain, strain, dislocation, contusion, neurovascular injury Narrative Course Patient is given Lortab 5 a grams by mouth for pain. CAT scan of the head is negative. Diagnosis Primary Impression: Closed head injury Qualified Code: S09.90XA - Closed head injury, initial encounter Additional Impression: Acute exacerbation of chronic low back pain Patient Instructions: Narcotic given in the ED, General Instructions Additional Instructions: Rest. Head precautions. Medications as directed Ice packs. Avoid alcohol. Avoid all sedating or intoxicating substances. Recheck with your physician within 3-7 days. Return to the ER for any problems. Med/Other Pt SpecificInfo: Prescription(s) given Scripts Hydrocodone-Acetaminophen (Lortab)5-325 Mg Tab1 Tab PO Q8HR PRN (PAIN) #12 TAB Prov:Cleve Patino MD 01/17/17 Cyclobenzaprine (Flexeril)10 Mg Tab10 Mg PO TID #21 TAB Prov:Cleve Patino MD 01/17/17 Disposition: 01 DISCHARGE HOME Condition: Stable Virgil Mcguire Jan 17, 2017 19:20
--- NOTE | 2017-01-17 19:52 | RADRPT ---
EXAM DATE/TIME: 01/17/2017 19:27 [facility] COMPARISON: No previous studies available for comparison. INDICATIONS : Fell down stairs hit left frontal parital area. RADIATION DOSE: 48.73 CTDIvol (mGy) MEDICAL HISTORY : Cardiovascular disease. Hypertension. SURGICAL HISTORY : None. ENCOUNTER: Initial ACUITY: 1 day PAIN SCALE: 7/10 LOCATION: Left cranial TECHNIQUE: Multiple contiguous axial images were obtained of the head. Using automated exposure control and adj ustment of the mA and/or kV according to patient size, radiation dose was kept as low as reasonably a chievable to obtain optimal diagnostic quality images. DICOM format image data is available electro nically for review and comparison. Moderate motion artifact FINDINGS: CEREBRUM: The ventricles are normal for age. No evidence of midline shift, mass lesion, hemorrhage or acute in farction. No extra-axial fluid collections are seen. Parenchymal calcification basalganglia left si de. POSTERIOR FOSSA: The cerebellum and brainstem are intact. The 4th ventricle is midline. The cerebellopontine angle i s unremarkable. EXTRACRANIAL: The visualized portion of the orbits is intact. SKULL: The calvaria is intact. No evidence of skull fracture. CONCLUSION: Motion artifact, negative for acute traumatic injury. Hector Middleton MD FACR on January 17, 2017 at 19:50 Board Certified Radiologist. This report was verified electronically.
[2017-01-17] MEDS ORDERED: HYDR-3533 PO (20:01)
[2017-01-17] MEDS ORDERED: CYCL1TAB29 PO (20:01)
== END 2017-01-17 20:25 | disposition home or self-care (01) ==
LOC: NEPK 17:31
DX: S09.90XA Unspecified injury of head, initial encounter (principal); M54.5 Low back pain; G89.29 Other chronic pain; I10 Essential (primary) hypertension; F41.9 Anxiety disorder, unspecified; F32.9 Major depressive disorder, single episode, unspecified; J45.909 Unspecified asthma, uncomplicated; Z79.899 Other long term (current) drug therapy; W10.9XXA Fall (on) (from) unspecified stairs and steps, initial encounter
CPT/HCPCS: 70450; 99284

== ENCOUNTER 2017-05-29 22:24 | Emergency (ER) | payer MEDICAID ==
[~2017-05-29] VITALS: Ht 152.4 cm; Wt 141.0 kg
[~2017-05-29 22:24] MED LIST changes: +ABIL10TA8 PO; -ARIP1TAB5 PO; -AUGM500T7 PO; +CYCL10TA PO; +HYDR-3533 PO; -PRED10PA PO; -TRAZ100T4 PO
[2017-05-29 22:28] VITALS: BP 189/113; PULSE 90; RESP 20; TEMP 98.2; O2SAT 100
[2017-05-29] MEDS ORDERED: PROPARACAINE HCL 0.5% OPHT SOLN 15 ML BTL EACH EYE ONE (23:15)
[2017-05-29] MEDS ORDERED: cloNIDine HCL 0.2 MG TAB PO ONE (23:15)
[2017-05-29 23:30] VITALS: BP 143/87; PULSE 101; RESP 18; O2SAT 96
--- NOTE | 2017-05-29 23:56 | RADRPT ---
EXAM DATE/TIME: 05/29/2017 23:35 [facility] COMPARISON: No previous studies available for comparison. INDICATIONS : Fall, twisted ankle pain at lateral mallelous. MEDICAL HISTORY : None. SURGICAL HISTORY : None. ENCOUNTER: Initial ACUITY: 1 day PAIN SCORE: 5/10 LOCATION: Right ankle FINDINGS: Three view exam was performed of the right ankle. The bony structures are in normal alignment. No e vidence of fracture, dislocation. There is lateral predominant soft tissue swelling. The ankle morti se is intact. No radiopaque foreign bodies are seen. Bony mineralization is normal. CONCLUSION: Soft tissue swelling without fracture. Melvin Romero MD on May 29, 2017 at 23:54 Board Certified Radiologist. This report was verified electronically.
--- NOTE | 2017-05-29 23:58 | PD ---
HPI Chief Complaint: Injury Time Seen by Provider: 23:08 Travel History International Travel<30 days: No Contact w/Intl Traveler<30days: No Traveled to known affect area: No History of Present Illness HPI 27-year-old black female presents immersed department with the presenting complaint of right ankle pain. She states that she fell this afternoon. She also states that during her fall she had noticed some discomfort in her left eye. She patient denies hitting her head. No neck or back pain. She denies glasses or contacts. She states that her eye hurts more which she closes it. There is mild photophobia and tearing. She denies any history of ocular problems in the past. 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 [facility] Past Medical History Narrative Medical Asthma, hypertension, schizoaffective disorder Asthma: Yes Autoimmune Disease: No Blood Disorders: No Anxiety: Yes Depression: Yes Heart Rhythm Problems: No Cancer: No Cardiovascular Problems: Yes Chemotherapy: No Chest Pain: No Cystic Fibrosis: No Diabetes: No Diminished Hearing: No Endocrine: No Gastrointestinal Disorders: Yes Genitourinary: Yes Headaches: No Hypertension: Yes Immune Disorder: No Musculoskeletal: No Neurologic: No Psychiatric: Yes (DEPRESSION, ANXIETY) Reproductive: No Respiratory: No Immunizations Current: No Renal Failure: Yes (DURING LAST ) Seizures: No Sickle Cell Disease: No Sleep Apnea: No Thyroid Disease: No Ulcer: No Tetanus Vaccination: Unknown Influenza Vaccination: Yes ?: Not Menopausal: No : 4 Miscarriage: 0 Ectopic : No Ovarian Cysts: No Dilation and Curettage (D&C): No Tubal Ligation: No Past Surgical History Abdominal Surgery: Yes ( X 2) Section: Yes (2012) Gynecologic Surgery: Yes Hysterectomy: No Other Surgery: Yes Social History Alcohol Use: No Tobacco Use: No Substance Use: No Allergies-Medications (Allergen,Severity, Reaction): Coded Allergies: diatrizoate meglumine (Unverified Allergy, Unknown, RASH, 02/20/17) gadobenic acid (Unverified Allergy, Unknown, RASH, 02/20/17) gadodiamide (Unverified Allergy, Unknown, RASH, 02/20/17) gadoteridol (Unverified Allergy, Unknown, RASH, 02/20/17) iodixanol (Unverified Allergy, Unknown, RASH, 02/20/17) iohexol (Unverified Allergy, Unknown, RASH, 02/20/17) Reported Meds & Prescriptions Reported Meds & Active Scripts Active Flexeril (Cyclobenzaprine HCl) 10 Mg Tab 10 Mg PO TID Reported Abilify (Aripiprazole) 10 Mg Tab 10 Mg PO HS Labetalol (Labetalol HCl) 100 Mg Tab 100 Mg PO BID Review of Systems General / Constitutional: No: Fever, Chills Eyes: Positive: Blurred Vision, Photophobia, Redness, Pain, Tearing, Visual changes, No: Diploplia, Drainage, Foreign Body Sensation HENT: No: Headaches, Neck Stiffness, Neck Pain Cardiovascular: No: Chest Pain or Discomfort Respiratory: Positive: Cough, No: Shortness of Breath Gastrointestinal: No: Nausea, Abdominal Pain Genitourinary: No: Dysuria Musculoskeletal: Positive: Arthralgias, Limited ROM, Edema, Pain Skin: No Rash Neurologic: No: Weakness Psychiatric: No: Depression Endocrine: No: Polydipsia Hematologic/Lymphatic: No: Easy Bruising Physical Exam Narrative GENERAL: Well-developed, well-nourished in no apparent distress. Nontoxic appearing. HEAD: Normocephalic, atraumatic. EYES: Pupils equal round and reactive. Extraocular motions intact. No scleral icterus. No injection or drainage in the right eye. The left eye is injected. She has clear tearing. Alcaine is instilled in both eyes. Lids are flipped and no foreign body seen. Ocular pressure in the right eye is between 15 and 20 in 20/25 in the left eye. Funduscopic exam is somewhat limited but she has a positive red reflex the disc is poorly seen I do not see any hemorrhages. Fluorescein stain is negative for corneal abrasion. Patient has had resolution of her pain with Alcaine administration. ENT: Nose clear. Throat without erythema, tonsillar hypertrophy or exudate. Uvula midline. Airway patent. NECK: Trachea midline. Supple, nontender, moves head freely. No central bony tenderness or spasm. CARDIOVASCULAR: Regular rate and rhythm without murmurs, gallops, or rubs. RESPIRATORY: Clear to auscultation. Breath sounds equal bilaterally. No wheezes , rales, or rhonchi. GASTROINTESTINAL: Abdomen soft, non-tender, nondistended. No hepato-splenomegaly , or palpable masses. No guarding. EXTREMITIES: No clubbing, cyanosis. Examination the right lower extremity reveals mild edema in the ankle. She has complaints of diffuse pain. No point tenderness over the mediolateral malleolus. No pain in the heel or Achilles. No pain in the distal forefoot or toes. No pain in the knee or hip. She has intact sensation with good distal pulses. The left lower extremity as well as upper extremities are without localizing bony tenderness or deformity. BACK: Nontender without deformity. No flank tenderness. NEUROLOGICAL: Awake, alert and oriented x 3 .Cranial nerves grossly intact. Motor and sensory grossly within normal limits. Chronically impaired speech . Ambulates with a gait. Data Data Last Documented VS Vital Signs Date Time Temp Pulse Resp B/P (MAP) Pulse Ox O2 Delivery O2 Flow Rate FiO2 05/29/17 22:28 98.2 90 20 189/113 (138) 100 Orders Orders Clonidine (Catapres) (05/29/17 23:15) Proparacaine 0.5% Opth Soln (Alcaine 0.5 (05/29/17 23:15) Ankle, Complete ([id number]) (05/29/17 23:19) [facility] Medical Decision Making Medical Screen Exam Complete: Yes Emergency Medical Condition: Yes Medical Record Reviewed: Yes Differential Diagnosis Differential diagnoses: CVA, TIA, glaucoma, corneal abrasion, corneal ulcer, foreign body, benign intracranial hypertension, sprain, strain, fracture Narrative Course X-ray of the right ankles negative for bony injury. She'll be given an Varinder wrap and advised to take ibuprofen. Evaluation arrived reveals mildly increased ocular pressures. Funduscopic exam is limited. I have encouraged the patient to follow-up with ophthalmology tomorrow for recheck. She was given 0.2 mg of clonidine by mouth for her hypertension. She states that she has been compliant with her labetalol. Diagnosis Primary Impression: right ankle sprain Additional Impressions: left eye pain hypertension-established Referrals: Aliyah Ng MD 1 day Patient Instructions: General Instructions Additional Instructions: Rest. Elevation. Ice packs for the next 3 days. Varinder wrap and crutches. No eye rubbing. 3 Advil every 6 hours. Follow-up with Dr. Ng tomorrow for recheck. Follow-up with an orthopedist or your doctor in one week. Return to the ER if any problems Disposition: 01 DISCHARGE HOME Condition: Stable Virgil Mcguire May 29, 2017 23:58
[2017-05-30] MEDS ORDERED: IBUPROFEN 600 MG TAB PO ONE
== END 2017-05-30 00:20 | disposition home or self-care (01) ==
LOC: NEPD 22:24
DX: S93.401A Sprain of unspecified ligament of right ankle, initial encounter (principal); H57.12 Ocular pain, left eye; R29.810 Facial weakness; I10 Essential (primary) hypertension; J45.909 Unspecified asthma, uncomplicated; F25.9 Schizoaffective disorder, unspecified; F41.9 Anxiety disorder, unspecified; W19.XXXA Unspecified fall, initial encounter
CPT/HCPCS: 73610; 99283

== ENCOUNTER 2017-07-17 21:23 | Emergency (ER) | payer MEDICARE, MEDICAID ==
[~2017-07-17 21:23] MED LIST changes: -HYDR-3533 PO
[2017-07-17 21:27] VITALS: BP 178/105; PULSE 102; RESP 18; TEMP 98.7; O2SAT 97
--- NOTE | 2017-07-17 22:03 | RADRPT ---
EXAM DATE/TIME: 07/17/2017 21:50 [facility] COMPARISON: No previous studies available for comparison. INDICATIONS : Congestion. Shortness of breath. MEDICAL HISTORY : Asthma. SURGICAL HISTORY : None. ENCOUNTER: Initial ACUITY: 4 - 6 days PAIN SCORE: 0/10 LOCATION: Bilateral chest FINDINGS: PA and lateral views of the chest demonstrate the lungs to be symmetrically aerated without evidence of mass, infiltrate or effusion. The cardiomediastinal contours are unremarkable. Osseous structure s are intact. CONCLUSION: No evidence of acute cardiopulmonary disease. Melvin Romero MD on July 17, 2017 at 22:00 Board Certified Radiologist. This report was verified electronically.
[2017-07-17] MEDS ORDERED: PRED-503 PO (23:37)
[2017-07-17] MEDS ORDERED: ZITHTAB PO (23:37)
[2017-07-17] MEDS ORDERED: ALBU6.7H INH (23:37)
--- NOTE | 2017-07-17 23:39 | PD ---
HPI Chief Complaint: Cold / Flu Symptoms Time Seen by Provider: 23:32 Travel History International Travel<30 days: No Contact w/Intl Traveler<30days: No Traveled to known affect area: No History of Present Illness HPI 27-year-old black female presents to emergency department with a four-day history of cough, congestion, shortness of breath, wheezing and general malaise. She states that she has had subjective fever and chills. Positive colored sputum. She denies any nausea vomiting. No bowel pain or urinary symptoms. No myalgias or arthralgias. History of asthma but has been out of her medicines. PFSH Past Medical History Asthma: Yes Autoimmune Disease: No Blood Disorders: No Anxiety: Yes Depression: Yes Heart Rhythm Problems: No Cancer: No Cardiovascular Problems: Yes Chemotherapy: No Chest Pain: No Cystic Fibrosis: No Diabetes: No Diminished Hearing: No Endocrine: No Gastrointestinal Disorders: Yes Genitourinary: Yes Headaches: No Hypertension: Yes Immune Disorder: No Musculoskeletal: No Neurologic: No Psychiatric: Yes (DEPRESSION, ANXIETY) Reproductive: No Respiratory: No Immunizations Current: No Renal Failure: Yes (DURING LAST ) Seizures: No Sickle Cell Disease: No Sleep Apnea: No Thyroid Disease: No Ulcer: No ?: Not LMP: 06/14/18 Menopausal: No : 4 Miscarriage: 0 Ectopic : No Ovarian Cysts: No Dilation and Curettage (D&C): No Tubal Ligation: No Past Surgical History Abdominal Surgery: Yes ( X 2) Section: Yes (2012) Gynecologic Surgery: Yes Hysterectomy: No Other Surgery: Yes Social History Alcohol Use: No Tobacco Use: No Substance Use: No Allergies-Medications (Allergen,Severity, Reaction): Coded Allergies: diatrizoate meglumine (Unverified Allergy, Unknown, RASH, 02/20/17) gadobenic acid (Unverified Allergy, Unknown, RASH, 02/20/17) gadodiamide (Unverified Allergy, Unknown, RASH, 02/20/17) gadoteridol (Unverified Allergy, Unknown, RASH, 02/20/17) iodixanol (Unverified Allergy, Unknown, RASH, 02/20/17) iohexol (Unverified Allergy, Unknown, RASH, 02/20/17) Reported Meds & Prescriptions Reported Meds & Active Scripts Active Deltasone (Prednisone) 20 Mg Tab 20 Mg PO BID 5 Days Zithromax Z-Christian (Azithromycin) 250 Mg Dspk 250 Mg PO DIRECTED 500 MG (2 tabs) day 1, then 1 tab days 2-5. Proventil Hfa 6.7 GM Inh (Albuterol Sulfate) 90 Mcg/Act Aer 2 Puff INH Q4-6H PRN Flexeril (Cyclobenzaprine HCl) 10 Mg Tab 10 Mg PO TID Reported Abilify (Aripiprazole) 10 Mg Tab 10 Mg PO HS Labetalol (Labetalol HCl) 100 Mg Tab 100 Mg PO BID Review of Systems Except as stated in HPI: all other systems reviewed are Neg Physical Exam Narrative GENERAL: Well-developed, well-nourished in no acute distress. Nontoxic appearing. HEAD: Normocephalic, atraumatic. EYES: Pupils equal round and reactive. Extraocular motions intact. No scleral icterus. No injection or drainage. ENT: TMs clear without erythema. The external auditory canals clear. Nose: clear . Posterior pharynx is pink and moist. No tonsillar edema or exudate. Uvula midline. Airway patent. NECK: Trachea midline.Supple, nontender, moves head freely. No central bony tenderness or spasm. CARDIOVASCULAR: Regular rate and rhythm without murmurs, gallops, or rubs. RESPIRATORY: Scattered rhonchi with occasional expiratory wheeze. No Rales. GASTROINTESTINAL: Abdomen soft, non-tender, nondistended. No hepato-splenomegaly , or palpable masses. No guarding. EXTREMITIES: No clubbing, cyanosis, or edema. No joint tenderness, effusion, or edema noted. BACK: Nontender without deformity or crepitance. No flank tenderness. Data Data Last Documented VS Vital Signs Date Time Temp Pulse Resp B/P (MAP) Pulse Ox O2 Delivery O2 Flow Rate FiO2 07/17/17 21:27 98.7 102 18 178/105 (129) 97 Orders Orders Chest, Pa & Lat (07/17/17 ) Ed Urine Pregnancytest Poc (07/17/17 21:38) Azithromycin (Zithromax) (07/17/17 23:45) Prednisone (Deltasone) (07/17/17 23:45) Ed Discharge Order (07/17/17 23:35) MDM Medical Decision Making Medical Screen Exam Complete: Yes Emergency Medical Condition: Yes Medical Record Reviewed: Yes Interpretation(s) Last 24 hours Impressions Chest X-Ray 07/17/17 0000 Signed Impressions: Service Date/Time: Monday, July 17, 2017 21:50 - CONCLUSION: No evidence of acute cardiopulmonary disease. Melvin Romero MD Differential Diagnosis MDM: High Differential diagnoses: Pneumonia, bronchitis, URI, asthma, RAD, legionnaire's disease, SARS, ARDS, influenza, bronchiolitis, RSV,PE,CHF Narrative Course Patient's given Zithromax 500 mg and prednisone 40 mg by mouth. Chest x-ray is negative. This is bronchitis with RAD Diagnosis Primary Impression: bronchitis with RAD Patient Instructions: General Instructions Additional Instructions: Rest. Increase fluids. Tylenol and Advil. Robitussin-DM. Zithromax, prednisone, and albuterol. Followup with your Dr. in one week. Return to the ER for any problems. Med/Other Pt SpecificInfo: Prescription(s) given Scripts Prednisone (Deltasone) 20 Mg Tab 20 MG PO BID for 5 Days, #10 TAB 0 Refills Prov: Mercedes Burch DO 07/17/17 Azithromycin (Zithromax Z-Christian) 250 Mg Dspk 250 MG PO DIRECTED for Infection, #1 DSPK 0 Refills 500 MG (2 tabs) day 1, then 1 tab days 2-5. Prov: Mercedes Burch DO 07/17/17 Albuterol 6.7 GM Inh (Proventil Hfa 6.7 GM Inh) 90 Mcg/Act Aer 2 PUFF INH Q4-6H Y for SHORTNESS OF BREATH, #1 INHALER 0 Refills Prov: Mercedes Burch DO 07/17/17 Disposition: 01 DISCHARGE HOME Condition: Stable Virgil Mcguire Jul 17, 2017 23:39
[2017-07-17] MEDS ORDERED: AZITHROMYCIN 250 MG TAB PO ONE (23:45)
[2017-07-17] MEDS ORDERED: predniSONE 20 MG TAB PO ONE (23:45)
== END 2017-07-18 00:23 | disposition home or self-care (01) ==
LOC: NEPK 21:23
DX: J45.909 Unspecified asthma, uncomplicated (principal); F32.9 Major depressive disorder, single episode, unspecified; F41.9 Anxiety disorder, unspecified; I10 Essential (primary) hypertension
CPT/HCPCS: 71046; 84703; 99284; J7512

== ENCOUNTER 2017-07-24 12:12 | Emergency (ER) | payer MEDICARE, MEDICAID ==
[~2017-07-24 12:12] MED LIST changes: +ALBU6.7H INH; +PRED-503 PO; +ZITHTAB PO
[2017-07-24 12:13] VITALS: BP 197/106; PULSE 115; RESP 18; TEMP 98.1; O2SAT 100
[2017-07-24] MEDS ORDERED: LURA20TA PO (14:21)
[2017-07-24] MEDS ORDERED: SILV1CRE20 TOPICAL (14:42)
[2017-07-24] MEDS ORDERED: MELO15TA20 PO (14:43)
--- NOTE | 2017-07-24 14:45 | PD ---
HPI Chief Complaint: Burn Time Seen by Provider: 14:05 Travel History International Travel<30 days: No Contact w/Intl Traveler<30days: No Traveled to known affect area: No History of Present Illness HPI This is a 27-year-old female here for evaluation of a burn to her left leg caused by hot near boiling water. Injury occurred at 10 AM. She reports she was transferring hot water in a pot when she slipped causing water splashed onto the left thigh. She reports pain to the left lateral thigh which is aggravated by touching the area. No alleviating factors. Symptoms severity is moderate. PFSH Past Medical History Asthma: Yes Autoimmune Disease: No Blood Disorders: No Anxiety: Yes Depression: Yes Heart Rhythm Problems: No Cancer: No Cardiovascular Problems: Yes Chemotherapy: No Chest Pain: No Cystic Fibrosis: No Diabetes: No Diminished Hearing: No Endocrine: No Gastrointestinal Disorders: No Genitourinary: Yes Headaches: No Hypertension: Yes Immune Disorder: No Implanted Vascular Access Dvce: No Musculoskeletal: No Neurologic: No Psychiatric: Yes (DEPRESSION, ANXIETY) Reproductive: No Respiratory: No Immunizations Current: No Renal Failure: Yes (DURING LAST ) Seizures: No Sickle Cell Disease: No Sleep Apnea: No Thyroid Disease: No Ulcer: No ?: Not LMP: has it now Menopausal: No : 4 Para: 3 Miscarriage: 0 Ectopic : No Ovarian Cysts: No Dilation and Curettage (D&C): No Tubal Ligation: No Past Surgical History Abdominal Surgery: Yes ( X 2) Section: Yes (2012) Gynecologic Surgery: Yes Hysterectomy: No Other Surgery: Yes Social History Alcohol Use: No Tobacco Use: No Substance Use: No Allergies-Medications (Allergen,Severity, Reaction): Coded Allergies: diatrizoate meglumine (Unverified Allergy, Unknown, RASH, 07/24/17) gadobenic acid (Unverified Allergy, Unknown, RASH, 07/24/17) gadodiamide (Unverified Allergy, Unknown, RASH, 07/24/17) gadoteridol (Unverified Allergy, Unknown, RASH, 07/24/17) iodixanol (Unverified Allergy, Unknown, RASH, 07/24/17) iohexol (Unverified Allergy, Unknown, RASH, 07/24/17) Reported Meds & Prescriptions Reported Meds & Active Scripts Active Reported Latuda (Lurasidone) 20 Mg Tab 20 Mg PO DAILY Review of Systems Except as stated in HPI: all other systems reviewed are Neg General / Constitutional: No: Fever Eyes: No: Visual changes HENT: No: Headaches Cardiovascular: No: Chest Pain or Discomfort Respiratory: No: Shortness of Breath Gastrointestinal: No: Abdominal Pain Physical Exam Narrative GENERAL: Alert and well-appearing 27-year-old female SKIN: Warm and dry. Approximately 20 x 15 cm area of the left lateral thigh mildly erythematous. The area is blanchable. Only a 3 x 0.5 cm area of blistering. No scolding injuries. HEAD: Normocephalic. EYES: No injection or drainage. NECK: Supple, trachea midline. CARDIOVASCULAR: Regular rate and rhythm RESPIRATORY: Breath sounds equal bilaterally. No accessory muscle use. GASTROINTESTINAL: Abdomen soft, non-tender, nondistended. MUSCULOSKELETAL: No cyanosis, or edema. Data Data Last Documented VS Vital Signs Date Time Temp Pulse Resp B/P (MAP) Pulse Ox O2 Delivery O2 Flow Rate FiO2 07/24/17 12:13 98.1 115 18 197/106 (136) 100 MDM Medical Decision Making Medical Screen Exam Complete: Yes Emergency Medical Condition: Yes Differential Diagnosis First-degree burn, second-degree burn, other Narrative Course 27-year-old female here with a first and second-degree burn to her left thigh. He has a large area of first-degree burn. The skin is blanchable. No scalding injury. Only a small area of blistering. She will be prescribed Silvadene and instructed to follow-up with her primary doctor for recheck. She agrees to this plan. Diagnosis Primary Impression: Burn Referrals: Primary Care Physician Additional Instructions: Silvadene cream as directed. Meloxicam as needed for pain. Follow-up with her primary doctor. Scripts Meloxicam (Meloxicam) 15 Mg Tab 15 MG PO DAILY for Arthritis Pain, #15 TAB 0 Refills Prov: Leila 07/24/17 Silver Sulfadiazine Topical (Silvadene Topical) 1 % Cream 1 APPLIC TOPICAL DIRECTED for Wound Management, #50 GM 0 Refills Prov: Leila 07/24/17 Disposition: 01 DISCHARGE HOME Condition: Stable Leila Sun Jul 24, 2017 14:45
== END 2017-07-24 14:51 | disposition home or self-care (01) ==
LOC: NEPK 12:12
DX: T24.212A Burn of second degree of left thigh, initial encounter (principal); X12.XXXA Contact with other hot fluids, initial encounter; Y93.89 Activity, other specified
CPT/HCPCS: 99284

== ENCOUNTER 2018-07-04 16:23 | Inpatient (IN) ==
[2018-07-04] MEDS ORDERED: MethylPREDNISolone Sod Succinate Inj 125 MG/2 ML Vial IV.PUSH ONE (16:47)
[2018-07-04] MEDS ORDERED: Acetaminophen 500 MG Tablet PO ONE (16:47)
--- NOTE | 2018-07-04 16:51 | ED ---
HPI General Chief complaint: Respiratory Symptoms Stated complaint: Resp came from [facility] Time Seen by Provider: 07/04/18 16:39 History of Present Illness HPI narrative: This is a 28-year-old female with history of asthma, tobacco use , who presents for evaluation of dyspnea, cough, wheezing. Symptoms started 1 week ago. The cough is productive with phlegm. She reports that she has had occasional myalgias in her back but no objective fevers at home. She reports that she voluntarily checked into [facility] 2 days ago for treatment of depression. She was sent here for medical clearance. She is denying any chest pain, abdominal pain, nausea, vomiting. Symptoms are moderate. She does not currently use any medications for asthma treatment. No other complaints at this time. Related Data Home Medications Medication Instructions Recorded Confirmed diltiazem HCl 60 mg PO BID 07/04/18 07/04/18 fluoxetine [Prozac] 20 mg PO DAILY 07/04/18 07/04/18 gabapentin 100 mg PO TID 07/04/18 07/04/18 lurasidone [Latuda] 40 mg PO DAILY 07/04/18 07/04/18 topiramate [Topamax] 100 mg PO BID 07/04/18 07/04/18 Allergies Allergy/AdvReac Type Severity Reaction Status Date / Time diatrizoate meglumine Allergy Unknown RASH Verified 07/04/18 16:38 gadobenic acid Allergy Unknown RASH Verified 07/04/18 16:38 gadodiamide Allergy Unknown RASH Verified 07/04/18 16:38 gadoteridol Allergy Unknown RASH Verified 07/04/18 16:38 iodixanol Allergy Unknown RASH Verified 07/04/18 16:38 iohexol Allergy Unknown RASH Verified 07/04/18 16:38 Review of Systems ROS: all other systems reviewed are negative PMFSH Medical History Medical History Asthma (Acute) Depression (Acute) Hypertension (Acute) Social History Social History Substance History: No History of Abuse Smoking Status: Current some day smoker Tobacco Type: Cigarettes How Often Do You Have a Drink Containing Alcohol: Never Recent Travel in [facility] within the Last 8 Weeks: No Recent Out of Country Travel within the Last 8 Weeks: No Immunization History Tetanus Immunization: >5 Years Exam Narrative Exam Narrative: GENERAL: Well-developed well-nourished female who is in no acute distress. She is febrile and tachycardic. SKIN: Warm and dry. HEAD: Atraumatic. Normocephalic. EYES: Pupils equal and round. No scleral icterus. No injection or drainage. ENT: No nasal bleeding or discharge. Mucous membranes pink and moist. NECK: Trachea midline. No JVD. CARDIOVASCULAR: Regular rate and rhythm. No murmur appreciated. RESPIRATORY: No accessory muscle use. Coarse breath sounds noted bilaterally, prolonged expiratory phase. GASTROINTESTINAL: Abdomen soft, non-tender, nondistended. Hepatic and splenic margins not palpable. MUSCULOSKELETAL: No obvious deformities. There is 2+ lower extremity pitting tibial edema bilaterally. NEUROLOGICAL: Awake and alert. No obvious cranial nerve deficits. Motor grossly within normal limits. Normal speech. PSYCHIATRIC: Appropriate mood and affect; insight and judgment normal. Course Initial Documented Vital Signs Temperature 100.0 F H 07/04/18 16:27 Pulse Rate 130 H 07/04/18 16:27 Respiratory Rate 22 07/04/18 16:27 Blood Pressure 157/78 H 07/04/18 16:27 Pulse Oximetry 98 07/04/18 16:27 Last Documented Vital Signs Temperature 99.6 F 07/04/18 18:38 Pulse Rate 124 H 07/04/18 18:38 Respiratory Rate 24 07/04/18 18:38 Blood Pressure 154/72 H 07/04/18 18:38 Pulse Oximetry 97 07/04/18 18:38 Medical Decision Making AMY Attestation AMY supervised visit: Yes Attestation: I, Dr. Adair, have reviewed the advance practice practitioner' s documentation and am in agreement, met with the patient face to face, made the diagnosis, and the medical decision making was done by me. *My assessment and Findings: The patient is a 28-year-old -[place] female was initially seen by the mid-level provider. The patient states she has a history of depression and went to [facility] for increasing depression. The patient states she developed symptoms at night, cough and cold symptoms. The patient had a dry nonproductive cough, runny nose , and progressing shortness of breath. The patient presents to the emergency department today with increasing shortness of breath and mild bilateral lower extremity edema. The patient states the edema has been chronic over the last several weeks. The patient does have a history of asthma as well as a history of elevated heart rate and takes diltiazem for her elevated heart rate and blood pressure. The patient states she has been wheezing, notes the cough is dry nonproductive. She denies any history of pulmonary embolism, DVT, or cardiomyopathy. The patient was advised by her primary physician [facility] to obtain an outpatient sleep study, however, she never went for the sleep study. The patient believes she may have sleep apnea. The patient was noted to be tachycardic and hypoxic, creatinine was elevated greater than baseline just above 4, baseline appears to be 1.5. The patient has acute kidney injury as well as tachycardia and hypoxia with shortness of breath. The patient is not a candidate for CTA, and had bilateral negative ultrasounds of lower extremities, and chronic tachycardia. If symptoms do not improve she may be a candidate for VQ scan, however, will need workup for acute kidney injury and continuing duo nebs. The patient is comfortable with admission. Plan of care is to be admitted to the on-call medical service. MDM Narrative Medical decision making narrative: 28-year-old female with history of asthma presents with 1 week of cough, congestion, wheezing. On examination she has coarse breath sounds bilaterally, she has a low-grade fever and she is tachycardic. She also has lower extremity edema bilaterally which she reports has been present for several months. The patient was placed on ECG monitor and pulse oximetry. A 12-lead EKG was obtained. Lab work, chest x-ray, Doppler ultrasound of lower extremities ordered. The patient will be given Tylenol, Solu-Medrol, normal saline bolus and duo nebs. Lab work is been obtained and reviewed, her CMP reveals a GFR of 16, upon previous visit in March her GFR was 33. Her potassium is 5.3, her WBC is mildly elevated at 12. Chest x-ray reveals no acute abnormalities. Lower extremity ultrasounds revealed no acute abnormalities. Upon reexamination the patient remains tachycardic with a heart rate of 120, she reports that she is prescribed diltiazem for treatment of hypertension and chronic tachycardia. At this point in time the plan is to admit her for further treatment of her acute kidney injury and asthma exacerbation, if symptoms do not improve VQ scan may be reasonable. Medical Screen Exam Complete: Yes Emergency Medical Condition: Yes Differential Diagnosis Differential Diagnosis: Asthma exacerbation, influenza, bronchitis, pneumonia, pulmonary embolism Lab Data Result diagrams: 07/04/18 17:00 07/04/18 17:00 POC Results POC Urine Results Negative Lab Results 07/04/18 07/04/18 07/04/18 Range/Units 17:00 17:00 17:00 WBC 12.0 H (4.0-11.0) th/mm3 RBC 4.20 (4.00-5.30) mil/mm3 Hgb 12.9 (11.6-15.3) gm/dL Hct 36.7 (35.0-46.0) % MCV 87.4 (80.0-100.0) fL MCH 30.8 (27.0-34.0) pg MCHC 35.2 (32.0-36.0) % RDW 13.7 (11.6-17.2) % Plt Count 297 (150-450) th/mm3 MPV 8.8 (7.0-11.0) fL Neut % (Auto) 65.3 (16.0-70.0) % Lymph % (Auto) 17.9 (9.0-44.0) % [place] % (Auto) 3.9 (0.0-8.0) % Eos % (Auto) 12.1 H (0.0-4.0) % Baso % (Auto) 0.8 (0.0-2.0) % Neut # (Auto) 7.9 H (1.8-7.7) th/mm3 Lymph # (Auto) 2.1 (1.0-4.8) th/mm3 [place] # (Auto) 0.5 (0.0-0.9) th/mm3 Eos # (Auto) 1.5 H (0.0-0.4) th/mm3 Baso # (Auto) 0.1 (0.0-0.2) th/mm3 WBC Differential . Differential Comment Auto diff final Sodium 141 (136-145) meq/L Potassium 5.3 H (3.5-5.1) meq/L Chloride 111 H (98-107) meq/L Carbon Dioxide 21.3 (21.0-32.0) meq/L Anion Gap 9 (5-15) meq/L BUN 24 H (7-18) mg/dL Creatinine 4.09 H (0.50-1.00) mg/dL Estimated GFR 16 L (>89) mL/min Random Glucose 88 (74-106) mg/dL Calcium 6.6 L* (8.5-10.1) mg/dL Calcium Adj for Albumin 8.5 (8.5-10.1) mg/dL Total Bilirubin 0.1 L (0.2-1.0) mg/dL AST 17 (15-37) U/L ALT 18 (10-53) U/L Alkaline Phosphatase 111 (45-117) U/L Total Protein 6.2 L (6.4-8.2) g/dL Albumin 1.6 L (3.4-5.0) g/dL TSH 1.260 (0.358-3.740) uIU/mL Imaging Data Radiologist's impression: Chest X-Ray 07/04/18 16:45 CONCLUSION: No acute intrathoracic disease. Stable examination. Venous Doppler Study 07/04/18 16:46 CONCLUSION: 1. No sonographic evidence for lower extremity DVT. Discharge Plan Discharge Disposition Patient Disposition: ED Admit(ED Internal Use Only) Discharge Condition Condition: Stable Discharge Order Discharge Orders: ED Use Only Admit Order (Routine); Ordered 07/04/18 Ordered By: Oren Chaparro Discharge Details Diagnosis: Acute kidney injury, Asthma exacerbation, Tachycardia Physicians Team ED Provider: Mustapha Adair ED Midlevel Provider: Oren Chaparro Primary Care Provider: UNKNOWN, Rxs /Orders / Referrals /Forms Prescriptions: No Action topiramate [Topamax] 100 mg Tablet 100 mg PO BID RF: 0 lurasidone [Latuda] 40 mg Tablet 40 mg PO DAILY RF: 0 gabapentin 100 mg Capsule 100 mg PO TID RF: 0 diltiazem HCl 60 mg Tablet 60 mg PO BID RF: 0 fluoxetine [Prozac] 20 mg Capsule 20 mg PO DAILY RF: 0 Status ED Status: With Doctor
[2018-07-04] MEDS ORDERED: Sod Chloride 0.9% Inj 1,000 ML IV.SIG SCH (17:00)
--- NOTE | 2018-07-04 17:32 | XR ---
EXAM DATE: 07/04/2018 5:29 PM EST AGE/SEX: 28 years / Female INDICATIONS: . Cough. CLINICAL DATA: This is the patient's initial encounter. Patient reports that signs and symptoms have been present for 1 week and indicates a pain score of 0/10. MEDICAL/SURGICAL HISTORY: None. None. [place]PAR[place] [facility] [place]. . FINDINGS: PA and lateral views of the chest demonstrate the lungs to be symmetrically aerated without evidence of mass, infiltrate or effusion. The cardiomediastinal contours are unremarkable. Osseous structures are intact. CONCLUSION: No acute intrathoracic disease. Stable examination. Electronically signed by: Micah Garcia MD Board Certified Radiologist 07/04/2018 5:31 PM EST
[2018-07-04 17:34] LABS: Baso # (Auto) 0.1 th/mm3 (0.0-0.2); Baso % (Auto) 0.8 % (0.0-2.0); Eos # (Auto) 1.5 th/mm3 (0.0-0.4); Eos % (Auto) 12.1 % (0.0-4.0); Hematocrit 36.7 % (35.0-46.0); Hemoglobin 12.9 gm/dL (11.6-15.3); Lymph # (Auto) 2.1 th/mm3 (1.0-4.8); Lymph % (Auto) 17.9 % (9.0-44.0); Mean Corpuscular HGB Conc 35.2 % (32.0-36.0); Mean Corpuscular Hemoglobin 30.8 pg (27.0-34.0); Mean Corpuscular Volume 87.4 fL (80.0-100.0); Mean Platelet Volume 8.8 fL (7.0-11.0); Mono # (Auto) 0.5 th/mm3 (0.0-0.9); Mono % (Auto) 3.9 % (0.0-8.0); Neut # (Auto) 7.9 th/mm3 (1.8-7.7); Neut % (Auto) 65.3 % (16.0-70.0); Platelet Count 297 th/mm3 (150-450); Red Cell Distribution Width 13.7 % (11.6-17.2)
[2018-07-04 18:01] LABS: Albumin 1.6 g/dL (3.4-5.0); Calcium 6.6 mg/dL (8.5-10.1); Carbon Dioxide 21.3 meq/L (21.0-32.0); Potassium 5.3 meq/L (3.5-5.1); Total Protein 6.2 g/dL (6.4-8.2)
--- NOTE | 2018-07-04 18:06 | US ---
EXAM DATE: 07/04/2018 6:03 PM EST AGE/SEX: 28 years / Female INDICATIONS: Bilateral leg swelling. CLINICAL DATA: This is the patient's initial encounter. Patient reports that signs and symptoms have been present for 1 day and indicates a pain score of 0/10. MEDICAL/SURGICAL HISTORY: Asthma. Hypertension. None. COMPARISON: No prior exams available for comparison. TECHNIQUE: Venous ultrasound of both lower extremities was performed from the inguinal ligament to t he proximal calf. Real-time, color Doppler and spectral tracing, compression and augmentation techni ques were used. FINDINGS: Right Leg: Normal compression of the deep venous system from the inguinal region to the proximal emy f. No echogenic clot is seen. Normal response of the venous system to augmentation and respiration. Left Leg: Normal compression of the deep venous system from the inguinal region to the proximal calf . No echogenic clot is seen. Normal response of the venous system to augmentation and respiration. Other: None. CONCLUSION: 1. No sonographic evidence for lower extremity DVT. Electronically signed by: Neil Niño MD Board Certified Radiologist 07/04/2018 6:05 PM July
[2018-07-04] MEDS ORDERED: dilTIAZem 60 MG Tablet PO ONE (18:50)
[2018-07-04] MEDS ORDERED: Bisacodyl 10 MG Supp RECTAL PRN (19:25)
[2018-07-04] MEDS ORDERED: Sod Chloride 0.9% Inj 1,000 ML IV.CONT SCH (19:30)
--- NOTE | 2018-07-04 19:46 | P.HP ---
History of Present Illness Service: [facility] Primary Care Physician: UNKNOWN History of Present Illness: 28-year-old female with a past medical history significant for schizoaffective disorder, sinus tachycardia, hypertension and previous diagnosis of renal failure who was lost to follow-up presents to the emergency department from [facility] for evaluation of shortness of breath. Patient states that she went into [facility] on 07/02 for the evaluation of depression. She denies any current suicidal ideation. She endorses subjective chills but no fever. She states her shortness of breath is now mild and denies any associated chest pain. She has had a cough productive of light yellow sputum. She states her pulse at home is normally 115 and she takes diltiazem twice a day for her sinus tachycardia. No abdominal pain. No nausea/vomiting/ diarrhea. No focal neurologic deficits. The patient was found to be in acute renal failure with a creatinine greater than 4. She denies any urologic symptoms and states she is producing her usual amount of urine. Inpatient Certification: I certify that the inpatient services were ordered in accordance with Medicare regulations governing the order. This includes certification that hospital inpatient services are reasonable and necessary and in the case of services not specified as inpatient-only under 42 CFR 419.22(n), that they are appropriately provided as inpatient services in accordance to with the 2-midnight benchmark under 43 CFR 412.3(e) Estimated Total Length of Stay (Days): 2 Plans for Post Hospital Care: Not yet determined Review of Systems All other systems reviewed negative except as stated [facility] - History History Provided By: Patient - Medical History Medical History: Medical History (Last Updated 07/04/18 @ 19:37 by Lesli Feldman MD) Asthma Chronic kidney disease Depression Hypertension Schizoaffective disorder - Surgical History Surgical History: Surgical History (Last Updated 07/04/18 @ 19:37 by Lesli Feldman MD) History of - Family History Family History: Family History (Last Updated 07/04/18 @ 19:38 by Lesli Feldman MD) Other Coronary artery disease Diabetes mellitus - Social History I have reviewed the patient's Social History: Yes - Tobacco History Tobacco Use In Past 30 Days: Yes Smoking Status: Current some day smoker Tobacco Type: Cigarettes - Alcohol History How Often Do You Have a Drink Containing Alcohol: Never - Substance Use History Substance History: No History of Abuse - Travel History Recent Travel in the [place] Within the Last 8 Weeks: No Recent Travel Out of the Country Within the Last 8 Weeks: No - Immunization History Tetanus Immunization: >5 Years Medications and Allergies Active Medications: Active Medications Acetaminophen (Tylenol) 650 mg PO Q4H PRN PRN Reason: Temp > 100.4 Al Hydroxide/Mg Hydroxide (Milk Of Magnesia Liq) 30 ml PO Q12H PRN PRN Reason: Mild Constipation Albuterol (Duoneb Neb (Prn)) 1 ampul NEB Q4HR NEB PRN PRN Reason: SOB/Wheezing Bisacodyl (Dulcolax Supp) 10 mg RECTAL DAILY PRN PRN Reason: SEVERE CONSITIPATION Diltiazem HCl (Cardizem) 60 mg PO BID CLEO Fluoxetine HCl (Prozac) 20 mg PO DAILY CLEO Gabapentin (Neurontin) 100 mg PO TID CLEO Sodium Chloride (Ns Inj) 1,000 mls @ 100 mls/hr IV.CONT .Q10H CLEO Lactulose (Lactulose Liq) 30 ml PO DAILY PRN PRN Reason: SEVERE CONSITIPATION Lurasidone HCl (Latuda) 40 mg PO DAILY CLEO Ondansetron HCl (Zofran Inj) 4 mg IV.PUSH Q6H PRN PRN Reason: NAUSEA OR VOMITING Senna/Docusate Sodium (Paola-Colace) 1 tab PO BID [facility] Sennosides (Senokot) 17.2 mg PO Q12H PRN PRN Reason: Moderate Constipation Sodium Chloride (Ns Flush) 2 ml IV.FLUSH BID CLEO Sodium Chloride (Ns Flush) 2 ml IV.FLUSH PRN PRN PRN Reason: FLUSH AFTER USING IV ACCESS Topiramate (Topamax) 100 mg PO BID CLEO Allergies Allergy/AdvReac Type Severity Reaction Status Date / Time diatrizoate meglumine Allergy Unknown RASH Verified 07/04/18 16:38 gadobenic acid Allergy Unknown RASH Verified 07/04/18 16:38 gadodiamide Allergy Unknown RASH Verified 07/04/18 16:38 gadoteridol Allergy Unknown RASH Verified 07/04/18 16:38 iodixanol Allergy Unknown RASH Verified 07/04/18 16:38 iohexol Allergy Unknown RASH Verified 07/04/18 16:38 Home Medications Medication Instructions Recorded Confirmed Type diltiazem HCl 60 mg PO BID 12/27/18 12/27/18 History fluoxetine [Prozac] 20 mg PO DAILY 07/04/18 07/04/18 History gabapentin 100 mg PO TID 07/04/18 07/04/18 History lurasidone [Latuda] 40 mg PO DAILY 07/04/18 07/04/18 History topiramate [Topamax] 100 mg PO BID 07/04/18 07/04/18 History Exam Vital signs: Vital Signs 07/04/18 16:27 07/04/18 16:48 07/04/18 17:29 Temperature 100.0 F H Pulse Rate 130 H 128 H 118 H Respiratory Rate 22 20 20 Blood Pressure 157/78 H 145/101 H Pulse Oximetry 98 07/04/18 18:38 Temperature 99.6 F Pulse Rate 124 H Respiratory Rate 24 Blood Pressure 154/72 H Pulse Oximetry 97 Intake & Output 07/04/18 07/04/18 07/05/18 06:59 18:59 06:59 Intake Total 1000 / 1000 Balance 1000 / 1000 Weight 131.542 kg Intake: IV 1000 / 1000 NS Inj 1,000 ML @ 1000 mls/hr 1000 / 1000 IV.SIG BOLUS [facility] Rx#:[id number] Narrative: Gen.: No acute distress Head: Normocephalic. Atraumatic. EENT: Pupils equal round and reactive to light. Nose without drainage. Airway intact. Throat without injection. Cardiovascular: Regular rate and rhythm. No murmurs, rubs or gallops. Respiratory: Lungs clear to auscultation bilaterally. No wheezes or rhonchi. Abdomen: Soft, nontender, nondistended. No peritoneal signs. Musculoskeletal: No gross deformities. No edema. Skin: No obvious rashes or erythema. Neuro: Sensory and motor grossly intact. Cranial nerves II through XII grossly intact. Results - Labs CBC & Chem 7: 07/04/18 17:00 07/04/18 17:00 Labs: Laboratory Results - last 24 hr 07/04/18 07/04/18 07/04/18 17:00 17:00 17:00 WBC 12.0 H RBC 4.20 Hgb 12.9 Hct 36.7 MCV 87.4 MCH 30.8 MCHC 35.2 RDW 13.7 Plt Count 297 MPV 8.8 Neut % (Auto) 65.3 Lymph % (Auto) 17.9 [place] % (Auto) 3.9 Eos % (Auto) 12.1 H Baso % (Auto) 0.8 Neut # (Auto) 7.9 H Lymph # (Auto) 2.1 [place] # (Auto) 0.5 Eos # (Auto) 1.5 H Baso # (Auto) 0.1 WBC Differential . Differential Comment Auto diff final Sodium 141 Potassium 5.3 H Chloride 111 H Carbon Dioxide 21.3 Anion Gap 9 BUN 24 H Creatinine 4.09 H Estimated GFR 16 L Random Glucose 88 Calcium 6.6 L* Calcium Adj for Albumin 8.5 Total Bilirubin 0.1 L AST 17 ALT 18 Alkaline Phosphatase 111 Total Protein 6.2 L Albumin 1.6 L TSH 1.260 - Imaging Impressions Chest X-Ray 07/04/18 16:45 CONCLUSION: No acute intrathoracic disease. Stable examination. Venous Doppler Study 07/04/18 16:46 CONCLUSION: 1. No sonographic evidence for lower extremity DVT. Caprini VTE Risk Assessment Caprini VTE Risk Assessment: No/Low Risk (score <= 1) Caprini Risk Assessment Model: Point Value = 1 Point Value = 2 Point Value = 3 Point Value = 5 Age 41-60 Minor surgery BMI > 25 kg/m2 Swollen legs Varicose veins or History of unexplained or recurrent spontaneous Oral contraceptives or hormone replacement Sepsis (< 1 month) Serious lung disease, including pneumonia (< 1 month) Abnormal pulmonary function Acute myocardial infarction Congestive heart failure (< 1 month) History of inflammatory bowel disease Medical patient at bed rest Age 61-74 Arthroscopic surgery Major open surgery (> 45 min) Laparoscopic surgery (> 45 min) Malignancy Confined to bed (> 72 hours) Immobilizing plaster cast Central venous access Age >= 75 History of VTE Family history of VTE Factor V Leiden Prothrombin [id number] Lupus anticoagulant Anticardiolipin antibodies Elevated serum homocysteine Heparin-induced thrombocytopenia Other congenital or acquired thrombophilia Stroke (< 1 month) Elective arthroplasty Hip, pelvis, or leg fracture Acute spinal cord injury (< 1 month) Prophylaxis Regimen: Total Risk Factor Score Risk Level Prophylaxis Regimen 0-1 Low Early ambulation 2 Moderate Order ONE of the following: *Sequential Compression Device (SCD) *Heparin 5000 units SQ BID 3-4 Higher Order ONE of the following medications: *Heparin 5000 units SQ TID *Enoxaparin/Lovenox 40 mg SQ daily (WT < 150 kg, CrCl > 30 mL/min) *Enoxaparin/Lovenox 30 mg SQ daily (WT < 150 kg, CrCl > 10-29 mL/min) *Enoxaparin/Lovenox 30 mg SQ BID (WT < 150 kg, CrCl > 30 mL/min) AND/OR *Sequential Compression Device (SCD) 5 or more Highest Order ONE of the following medications: *Heparin 5000 units SQ TID (Preferred with Epidurals) *Enoxaparin/Lovenox 40 mg SQ daily (WT < 150 kg, CrCl > 30 mL/min) *Enoxaparin/Lovenox 30 mg SQ daily (WT < 150 kg, CrCl > 10-29 mL/min) *Enoxaparin/Lovenox 30 mg SQ BID (WT < 150 kg, CrCl > 30 mL/min) AND *Sequential Compression Device (SCD) Assessment and Plan - Plan Assessment/plan: 1. Acute renal failure BUN/creatinine 30/10. Patient previously worked up for renal failure in July 2016, at that time had significant proteinuria and a biopsy was recommended The patient did not follow-up with nephrology secondary to insurance issues and has had no further workup Possible autoimmune etiology, MATTY, dsDNA, anti-[place]ac[place], antiphospholipid antibodies pending Renal ultrasound pending Nephrology consulted, appreciate assistance 2. Shortness of breath Patient reports her symptoms are improved with breathing treatments Has not been hypoxic since arrival Duo nebs as needed Chest x-ray negative for acute process, no indication for antibiotics at this time 3. Sinus tachycardia Patient reports she has a history of chronic sinus tachycardia for which she takes diltiazem Reports her baseline pulse is 115 Continue home diltiazem 4. Hypertension Continue home medications 5. Schizoaffective disorder with current depressive episode Continue Topamax, Latuda, fluoxetine Arrange for transfer back to [facility] for treatment once medically cleared Case management consulted for assistance FEN Renal diet Electrolytes: Monitor and replete as needed NS at 100 cc/hour
--- NOTE | 2018-07-04 20:01 | US ---
EXAM DATE: 07/04/2018 7:55 PM EST AGE/SEX: 28 years / Female INDICATIONS: Increased lab values. CLINICAL DATA: This is the patient's subsequent encounter. Patient reports that signs and symptoms h ave been present for 1 day and indicates a pain score of 0/10. MEDICAL/SURGICAL HISTORY: Renal disease. Hypertension. Schizoaffective disorder. se ction. COMPARISON: [facility] [place], US KIDNEY/RENAL/BLADDER, 07/22/2016. [facility] [place], CT ABDOMEN & PELVIS W/O CONTRAST, 03/17. . MEASUREMENTS: Right Kidney:__9.4 x 3.9 x 4.6 cm Left Kidney:__9.6 x 4.9 x 4.3 cm FINDINGS: Image quality is less than optimal secondary to patient body habitus. Right Kidney: Increased echogenicity. No mass or hydronephrosis. Left Kidney: Increased echogenicity. No mass or hydronephrosis. Bladder: Within normal limits given the degree of distension. Other: None. CONCLUSION: Both kidneys again demonstrate increased echogenicity suggestive of medical renal disease. There is n o hydronephrosis. Electronically signed by: Melvin Chand MD Board Certified Radiologist 07/04/2018 7:59 PM EST
[2018-07-04 20:05] LABS: Bacteria,Urine Rare /hpf; Bilirubin,Urine Negative (Negative); Clarity,Urine Clear (Clear); Color,Urine Straw (Yellw/Straw); Glucose,Urine (UA) 50 mg/dL (Negative); Leukocyte Esterase,Urine Negative (Negative); Mucus,Urine Few /lpf (Occasional); Nitrite,Urine Negative (Negative); Squamous Epithelial Cell,Urine 1 /hpf (0-5)
[2018-07-04] MEDS: Acetaminophen 325 MG Tablet PO PRN (22:27)
[2018-07-04] MEDS: Senna/Docusate Sodium 8.6/50 MG Tablet PO SCH (22:28)
[2018-07-04] MEDS: dilTIAZem 60 MG Tablet PO SCH (22:34)
[2018-07-04] MEDS: Topiramate 100 MG Tablet PO SCH (22:35)
[2018-07-04 23:27] LABS: Protein/Creatinine Ratio,Urine 13.19 (0.00-0.14); Total Protein,Urine Random 712.1 mg/dL (0-11.8)
[2018-07-05 08:48] LABS: Baso % (Auto) 0.2 % (0.0-2.0); Hematocrit 40.4 % (35.0-46.0); Hemoglobin 13.1 gm/dL (11.6-15.3); Lymph % (Auto) 8.9 % (9.0-44.0); Mean Corpuscular HGB Conc 32.4 % (32.0-36.0); Mean Corpuscular Hemoglobin 28.9 pg (27.0-34.0); Mean Corpuscular Volume 89.1 fL (80.0-100.0); Mean Platelet Volume 9.5 fL (7.0-11.0); Mono # (Auto) 0.1 th/mm3 (0.0-0.9); Mono % (Auto) 0.5 % (0.0-8.0); Neut # (Auto) 9.9 th/mm3 (1.8-7.7); Neut % (Auto) 90.4 % (16.0-70.0); Platelet Count 295 th/mm3 (150-450); Red Blood Count 4.54 mil/mm3 (4.00-5.30); Red Cell Distribution Width 13.6 % (11.6-17.2)
[2018-07-05] MEDS: Senna/Docusate Sodium 8.6/50 MG Tablet PO SCH (09:02)
[2018-07-05] MEDS: FLUoxetine 20 MG Capsule PO SCH (09:02)
[2018-07-05] MEDS: dilTIAZem 60 MG Tablet PO SCH ×2 (09:02→21:32)
[2018-07-05] MEDS: Topiramate 100 MG Tablet PO SCH ×2 (09:02→21:32)
[2018-07-05] MEDS: Gabapentin 100 MG Capsule PO SCH ×3 (09:02→18:48)
[2018-07-05 09:16] LABS: Calcium 7.1 mg/dL (8.5-10.1); Carbon Dioxide 20.9 meq/L (21.0-32.0); Potassium 5.1 meq/L (3.5-5.1)
[2018-07-05 09:23] LABS: Albumin 1.7 g/dL (3.4-5.0); Calcium-Albumin Corrected 8.9 mg/dL (8.5-10.1)
[2018-07-05] MEDS ORDERED: Bisacodyl 10 MG Supp RECTAL PRN (09:27)
[2018-07-05] MEDS ORDERED: Sod Chloride 0.9% Inj 1,000 ML IV.CONT SCH (09:30)
[2018-07-05] MEDS ORDERED: Morphine Inj 4 MG/ML Vial IV.PUSH PRN (09:45)
--- NOTE | 2018-07-05 11:03 | P.PN ---
Subjective Interval history: Follow-up visit for acute on chronic renal disease and SOB. Patient is seen and examined resting in bed in no acute distress, denies any further SOB. Denies any N/V/D or cough. Physical Exam Vital signs: Vital Signs 07/04/18 16:27 07/04/18 16:48 07/04/18 17:29 Temperature 100.0 F H Pulse Rate 130 H 128 H 118 H Respiratory Rate 22 20 20 Blood Pressure 157/78 H 145/101 H Pulse Oximetry 98 07/04/18 18:38 07/04/18 19:25 07/04/18 20:00 Temperature 99.6 F Pulse Rate 124 H 104 H Respiratory Rate 24 20 Blood Pressure 154/72 H 154/72 H Pulse Oximetry 97 96 95 07/04/18 21:02 07/04/18 22:57 07/04/18 23:30 Temperature 98.1 F 97.6 F Pulse Rate 112 H 101 H Respiratory Rate 18 18 19 Blood Pressure 135/65 119/58 L Pulse Oximetry 99 98 07/05/18 00:31 07/05/18 03:34 07/05/18 04:00 Temperature 97.8 F Pulse Rate 102 H Respiratory Rate 18 Blood Pressure 137/67 Pulse Oximetry 98 99 99 07/05/18 08:00 Temperature 97.9 F Pulse Rate 100 H Respiratory Rate 18 Blood Pressure 153/99 H Pulse Oximetry 98 Intake & Output 07/04/18 07/05/18 07/05/18 18:59 06:59 18:59 Intake Total 1000 / 1000 480 / 480 Balance 1000 / 1000 480 / 480 Weight 131.542 kg 131.5 kg Intake: IV 1000 / 1000 NS Inj 1,000 ML @ 1000 mls/hr 1000 / 1000 IV.SIG BOLUS [facility] Rx#:[id number] Oral 480 / 480 Other: # Voids 3 Date of Last Bowel Movement 07/04/18 07/04/18 # Bowel Movements 0 Weight On Admission 131.542 kg Narrative: GENERAL: Well-developed obese AA female in no acute distress. SKIN: Warm and dry. HEAD: Atraumatic. Normocephalic. EYES: Pupils equal and round. No scleral icterus. No injection or drainage. ENT: No nasal bleeding or discharge. Mucous membranes pink and moist. NECK: Trachea midline. CARDIOVASCULAR: Tachycardic, no murmurs. RESPIRATORY: No accessory muscle use. Clear to auscultation. Breath sounds equal bilaterally. GASTROINTESTINAL: Abdomen soft, non-tender, nondistended/obese. + Bowel sounds MUSCULOSKELETAL: Extremities without clubbing or cyanosis. Bilateral foot +1 edema. No obvious deformities. NEUROLOGICAL: Awake, alert, oriented x3. No obvious cranial nerve deficits. Motor grossly within normal limits. Normal speech. PSYCHIATRIC: Appropriate mood and affect; insight and judgment normal. Results - Labs CBC & Chem 7: 07/05/18 08:15 07/05/18 08:15 Laboratory Results - last 24 hr 07/04/18 07/04/18 07/04/18 17:00 17:00 17:00 WBC 12.0 H RBC 4.20 Hgb 12.9 Hct 36.7 MCV 87.4 MCH 30.8 MCHC 35.2 RDW 13.7 Plt Count 297 MPV 8.8 Neut % (Auto) 65.3 Lymph % (Auto) 17.9 [place] % (Auto) 3.9 Eos % (Auto) 12.1 H Baso % (Auto) 0.8 Neut # (Auto) 7.9 H Lymph # (Auto) 2.1 [place] # (Auto) 0.5 Eos # (Auto) 1.5 H Baso # (Auto) 0.1 WBC Differential . Differential Comment Auto diff final Sodium 141 Potassium 5.3 H Chloride 111 H Carbon Dioxide 21.3 Anion Gap 9 BUN 24 H Creatinine 4.09 H Estimated GFR 16 L Random Glucose 88 Calcium 6.6 L* Calcium Adj for Albumin 8.5 Total Bilirubin 0.1 L AST 17 ALT 18 Alkaline Phosphatase 111 Total Protein 6.2 L Albumin 1.6 L TSH 1.260 Urine Color Urine Clarity Urine pH Ur Specific [place] Urine Protein Urine Glucose (UA) Urine Ketones Urine Occult Blood Urine Nitrate Urine Bilirubin Urine Urobilinogen Ur Leukocyte Esterase Urine RBC Urine WBC Ur Squamous Epith Cells Urine Bacteria Urine Mucus Micro UA Comment Ur Microscopic Review Urine Culture Comments Ur Random Creatinine U Random Total Protein Protein/Creatinin Ratio 07/04/18 07/04/18 07/05/18 17:20 17:20 08:15 WBC 11.0 RBC 4.54 Hgb 13.1 Hct 40.4 MCV 89.1 MCH 28.9 MCHC 32.4 RDW 13.6 Plt Count 295 MPV 9.5 Neut % (Auto) 90.4 H Lymph % (Auto) 8.9 L [place] % (Auto) 0.5 Eos % (Auto) 0.0 Baso % (Auto) 0.2 Neut # (Auto) 9.9 H Lymph # (Auto) 1.0 [place] # (Auto) 0.1 Eos # (Auto) 0.0 Baso # (Auto) 0.0 WBC Differential . Differential Comment Auto diff final Sodium Potassium Chloride Carbon Dioxide Anion Gap BUN Creatinine Estimated GFR Random Glucose Calcium Calcium Adj for Albumin Total Bilirubin AST ALT Alkaline Phosphatase Total Protein Albumin TSH Urine Color Straw Urine Clarity Clear Urine pH 7.0 Ur Specific [place] 1.010 Urine Protein 500 or greater Urine Glucose (UA) 50 Urine Ketones Negative Urine Occult Blood Negative Urine Nitrate Negative Urine Bilirubin Negative Urine Urobilinogen Less than 2 Ur Leukocyte Esterase Negative Urine RBC 1 Urine WBC 2 Ur Squamous Epith Cells 1 Urine Bacteria Rare H Urine Mucus Few H Micro UA Comment Culture not ind Ur Microscopic Review Not Reportable Urine Culture Comments Culture not ind Ur Random Creatinine 54 U Random Total Protein 712.1 H Protein/Creatinin Ratio 13.19 H 07/05/18 08:15 WBC RBC Hgb Hct MCV MCH MCHC RDW Plt Count MPV Neut % (Auto) Lymph % (Auto) [place] % (Auto) Eos % (Auto) Baso % (Auto) Neut # (Auto) Lymph # (Auto) [place] # (Auto) Eos # (Auto) Baso # (Auto) WBC Differential Differential Comment Sodium 141 Potassium 5.1 Chloride 111 H Carbon Dioxide 20.9 L Anion Gap 9 BUN 29 H Creatinine 4.15 H Estimated GFR 16 L Random Glucose 109 H Calcium 7.1 L* Calcium Adj for Albumin 8.9 Total Bilirubin AST ALT Alkaline Phosphatase Total Protein Albumin 1.7 L TSH Urine Color Urine Clarity Urine pH Ur Specific [place] Urine Protein Urine Glucose (UA) Urine Ketones Urine Occult Blood Urine Nitrate Urine Bilirubin Urine Urobilinogen Ur Leukocyte Esterase Urine RBC Urine WBC Ur Squamous Epith Cells Urine Bacteria Urine Mucus Micro UA Comment Ur Microscopic Review Urine Culture Comments Ur Random Creatinine U Random Total Protein Protein/Creatinin Ratio Microbiology 07/04/18 17:00 Nasal Wash Influenza Types A,B Antigen - Final Negative for FLU A and B antigen Infection due to influenza A or B cannot be ruled out since the antigen present in the sample may be below the detection limit of the test. - Imaging Impressions Abdomen/Bladder Ultrasound 07/04/18 00:00 CONCLUSION: Both kidneys again demonstrate increased echogenicity suggestive of medical renal disease. There is no hydronephrosis. Chest X-Ray 07/04/18 16:45 CONCLUSION: No acute intrathoracic disease. Stable examination. Venous Doppler Study 07/04/18 16:46 CONCLUSION: 1. No sonographic evidence for lower extremity DVT. Assessment and Plan - Plan Acute on chronic renal failure with proteinuria and electrolyte abnormalities BUN/creatinine 24/4.09 Patient previously worked up for renal failure in July 2016, at that time had significant proteinuria and a biopsy was recommended The patient did not follow-up with nephrology secondary to insurance issues and has had no further workup - Possible autoimmune etiology, MATTY, dsDNA, anti-Palacios, antiphospholipid antibodies pending -Renal ultrasound with increased echogenicity suggestive of medical renal disease, no hydronephrosis per - Nephrology consulted, appreciate assistance. Once again recommending renal biopsy. -Continue IV fluids, continue monitoring renal function Sinus tachycardia, chronic Reports her baseline pulse is 115 Hypertension, chronic -Continue home diltiazem, monitor heart rate and BP Shortness of breath Symptoms improved with breathing treatment No further hypoxia, duo nebs as needed Chest x-ray negative for acute process, no indication for antibiotics at this time Bilateral foot/leg edema -Ultrasound negative for DVT -Patient reports ongoing for the past 3 months or longer -Encourage elevation, improving Schizoaffective disorder with current depressive episode Continue Topamax, Latuda, fluoxetine Arrange for transfer back to [facility] for treatment once medically cleared DVT prophylaxisSCDs/early ambulation 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
[2018-07-05] MEDS ORDERED: ceFAZolin 2 GM Premix Inj 2 GM/50 ML PIGGYBACK IV.SIG SCH (12:00)
[2018-07-05 14:29] LABS: Phosphorus 3.9 mg/dL (2.5-4.9)
--- NOTE | 2018-07-05 14:42 | MB ---
cc: Teja Russo MD DATE: 07/05/2018 REASON FOR CONSULTATION: Elevated BUN and creatinine, for evaluation. HISTORY OF PRESENT ILLNESS: This is a 28-year-old female with past medical history of hypertension, history of schizophrenia, bronchial asthma, depression, chronic kidney disease, who was admitted because of worsening shortness of breath and cough. I was called to see the patient because of elevated BUN and creatinine. The patient was found to have 4.0 on admission and looking back, it looks like her creatinine was around 2-2.4 most of the time. The last creatinine we have was in 03/2018. At that time, it was 2.1. The patient denies any dysuria or hematuria. She did not notice any decrease in the urine output. She was not taking any nonsteroidal anti-inflammatory drugs. The patient mainly came with worsening shortness of breath and also has a cough with yellowish sputum. No chest pain. No palpitation. No nausea or vomiting. No history of diarrhea. Appetite is normal. PAST MEDICAL HISTORY: Hypertension, chronic kidney disease, bronchial asthma, anxiety, depression, schizophrenia. PAST SURGICAL HISTORY: History of section. REVIEW OF SYSTEMS: The patient denies any history of fever. No headache, dizziness or blurring of vision. She has mild shortness of breath, more with exertion. Has cough with yellowish sputum. No chest pain. No palpitation. No nausea or vomiting. No specific joint pain. Not taking any nonsteroid anti-inflammatory drug. No history of dysuria or hematuria. No history of renal stone. She has some swelling in the legs, but this is according to her chronic, going on for some time. SOCIAL HISTORY: The patient is smoking. There is no history of heavy alcoholism. Denies using any recreational drugs. FAMILY HISTORY: Denies any known family history of renal disease. ALLERGIES: SHE HAS MULTIPLE DRUG ALLERGIES INCLUDING IODIXANOL, GADOBENIC ACID, AND DIATRIZOATE. MEDICATIONS: Currently she is on following medications: 1. Tylenol as needed. 2. [place] as needed. 3. Milk of magnesia as needed. 4. DuoNeb as needed. 5. Dulcolax as needed. 6. Ancef 2 grams IV q.8 hours 7. Decadron 4 mg IV every 6 hours. 8. Diltiazem 60 mg b.i.d. 9. Prozac 20 mg once a day. 10. Neurontin 100 mg t.i.d. 11. Lactulose 30 mL p.r.n. 12. Latuda 40 mg once a day. 13. Morphine as needed. 14. Zofran as needed. 15. Protonix 40 mg once a day. 16. [place]-Colace 1 tablet b.i.d. 17. Senokot 17.2 mg every 12 hours. 18. Topamax 100 mg b.i.d. PHYSICAL EXAMINATION: GENERAL: She is awake, alert. She is not in acute distress. VITAL SIGNS: Last blood pressure is 153/99. There are no hypotensive episodes during this admission. Temperature 97.9, oxygen saturation on room air is 98% to 99%. HEENT: Pupils are mid constricted. Nonicteric sclerae. Conjunctivae normal. NECK: Supple. JVD is not elevated. LUNGS: The patient has bilateral decreased air entry with occasional wheezing. HEART: S1, S2. Regular rhythm. ABDOMEN: Obese, soft, lax. There is no tenderness. Bowel sounds positive. EXTREMITIES: She has 1+ leg edema. LABORATORY DATA: WBC count is 11, hemoglobin 13.1, platelet count of 295,000. Lupus anticoagulant test pending. Sodium 141, potassium 5.1, chloride 111, bicarbonate 20.9, BUN 29, creatinine of 4.1, calcium corrected is 8.9, total protein 6.2 with albumin of 1.6 to 1.7. Urinalysis showing protein of 500 or greater. A random protein creatinine ratio was 13.1. MATTY and antiDNA pending. IMAGING STUDY: The patient had abdomen ultrasound done. Ultrasound report is not available. ASSESSMENT AND PLAN: 1. Chronic kidney disease with acute worsening. 2. Nephrotic proteinuria. 3. Hypertension. 4. Shortness of breath with possibly acute bronchitis. 5. Bronchial asthma. 6. History of depression and schizophrenia. The patient has chronic kidney disease and has significant proteinuria. Serology has been ordered. I will add also ANCA and also complements. She possibly will need kidney biopsy to get the diagnosis. She is to continue the IV fluids and antibiotics and avoid any nephrotoxins. Thank you for consultation. I will follow the patient while she is in the hospital. Charissa Russo MD AQJ/sb/ll , 12:00 PM , 12:13 PM
[2018-07-05 15:47] LABS: CKMB Percent 1.6 % (0.0-4.0); Creatine Kinase MB 8.6 ng/mL (0.5-3.6)
--- NOTE | 2018-07-05 20:44 | ECG ---
Date Performed: 07/04/2018 Time Performed: 18:11:04 PTAGE: 28 years EKG: SINUS TACHYCARDIA POSSIBLE ANTERIOR MYOCARDIAL INFARCTION ABNORMAL ECG PREVIOUS TRACING : 07/19/2016 16.46 DOCTOR: Lourdes Pierce Interpretating Date/Time 07/05/2018 20:40:36
[2018-07-05] MEDS ORDERED: Senna/Docusate Sodium 8.6/50 MG Tablet PO SCH (21:00)
[2018-07-06 06:34] LABS: Calcium 6.7 mg/dL (8.5-10.1); Carbon Dioxide 19.7 meq/L (21.0-32.0); Potassium 5.2 meq/L (3.5-5.1)
[2018-07-06 06:49] LABS: Albumin 1.3 g/dL (3.4-5.0); Calcium-Albumin Corrected 8.9 mg/dL (8.5-10.1)
[2018-07-06] MEDS: Topiramate 100 MG Tablet PO SCH ×2 (08:26→20:45)
[2018-07-06] MEDS: dilTIAZem 60 MG Tablet PO SCH ×2 (08:26→20:45)
[2018-07-06] MEDS: FLUoxetine 20 MG Capsule PO SCH (08:27)
[2018-07-06] MEDS: Gabapentin 100 MG Capsule PO SCH ×3 (08:27→18:28)
--- NOTE | 2018-07-06 16:49 | P.PNIM ---
Subjective Interval history: The patient was resting comfortably in bed. She says she continues to smoke cigarettes. She says it is not an everyday thing. She says she is always wheezy. She says that she was told she might have a kidney biopsy. Discussed with nursing. Physical Exam Vital signs: Last Vital Signs Temp 98.1 F 07/06/18 16:00 Pulse 97 H 07/06/18 16:00 Resp 18 07/06/18 16:00 BP 158/92 H 07/06/18 16:00 Pulse Ox 98 07/06/18 16:00 Intake & Output 07/04/18 07/05/18 07/06/18 07/07/18 06:59 06:59 06:59 06:59 Intake Total 1480 / 1480 2680 / 2680 1000 / 1000 Balance 1480 / 1480 2680 / 2680 1000 / 1000 Weight 131.5 kg 131.2 kg Narrative: GENERAL: Well-developed obese female in no acute distress. SKIN: Warm and dry. HEAD: Atraumatic. Normocephalic. EYES: Pupils equal and round. No scleral icterus. No injection or drainage. ENT: No nasal bleeding or discharge. Mucous membranes pink and moist. NECK: Trachea midline. CARDIOVASCULAR: Tachycardic, no murmurs. RESPIRATORY: Mild wheezing. Breath sounds equal bilaterally. GASTROINTESTINAL: Abdomen soft, non-tender, nondistended/obese. + Bowel sounds. MUSCULOSKELETAL: Extremities without clubbing or cyanosis. Bilateral foot +1 edema. No obvious deformities. NEUROLOGICAL: Awake, alert, oriented x3. No obvious cranial nerve deficits. Motor grossly within normal limits. Normal speech. PSYCHIATRIC: Appropriate mood and affect; insight and judgment normal. Results Labs CBC & Chem 7: 07/05/18 08:15 07/06/18 05:45 Assessment and Plan Plan Acute on chronic renal failure with proteinuria and electrolyte abnormalities BUN/creatinine 24/4.09 Patient previously worked up for renal failure in July 2016, at that time had significant proteinuria and a biopsy was recommended The patient did not follow-up with nephrology secondary to insurance issues and has had no further workup - Possible autoimmune etiology, MATTY, dsDNA, anti-Palacios, antiphospholipid antibodies pending -Renal ultrasound with increased echogenicity suggestive of medical renal disease, no hydronephrosis noted. - Nephrology consulted, appreciate assistance. Possible renal biopsy. -Continue IV fluids, continue monitoring renal function Sinus tachycardia, chronic Reports her baseline pulse is 115 Hypertension, chronic -Continue home diltiazem, monitor heart rate and BP Shortness of breath Symptoms improved with breathing treatment -No further hypoxia, duo nebs as needed -Chest x-ray negative for acute process, no indication for antibiotics at this time -smoking cessation. -encourage ambulation, IS. Bilateral foot/leg edema -Ultrasound negative for DVT -Patient reports ongoing for the past 3 months or longer -Encourage elevation, improving Schizoaffective disorder with current depressive episode Continue Topamax, Latuda, fluoxetine Arrange for transfer back to [facility] for treatment once medically cleared DVT prophylaxisSCDs/early ambulation Progress Note: Quality VTE Deep Vein Thrombosis/Pulmonary Embolism Present on Admission: No
--- NOTE | 2018-07-06 21:54 | P.PNNP ---
Subjective Interval history: Patient seen in AM, no SOB, not in distress. Physical Exam Vital signs: Vital Signs 07/05/18 23:36 07/06/18 04:30 07/06/18 08:00 Temperature 97.9 F 97.7 F 98.1 F Pulse Rate 118 H 90 94 H Respiratory Rate 20 20 18 Blood Pressure 134/58 L 137/68 152/86 H Pulse Oximetry 95 97 96 07/06/18 12:00 07/06/18 16:00 07/06/18 19:27 Temperature 98.0 F 98.1 F 98.6 F Pulse Rate 86 97 H 102 H Respiratory Rate 18 18 20 Blood Pressure 144/78 H 158/92 H 178/101 H Pulse Oximetry 96 98 97 Intake & Output 07/06/18 07/06/18 07/07/18 06:59 18:59 06:59 Intake Total 1160 / 1160 1720 / 1720 Balance 1160 / 1160 1720 / 1720 Weight 131.2 kg Intake: IV 1000 / 1000 NS Inj 1,000 ML @ 100 mls/hr IV 1000 / 1000 .CONT .Q10H CLEO Rx#:[id number] Oral 1160 / 1160 720 / 720 Other: # Voids 5 5 Date of Last Bowel Movement 07/04/18 # Bowel Movements 1 2 Narrative: GENERAL: Well-developed obese female in no acute distress. SKIN: Warm and dry. HEAD: Atraumatic. Normocephalic. EYES: Pupils equal and round. No scleral icterus. No injection or drainage. ENT: No nasal bleeding or discharge. Mucous membranes pink and moist. NECK: Trachea midline. CARDIOVASCULAR: Tachycardic, no murmurs. RESPIRATORY: Mild wheezing. Breath sounds equal bilaterally. GASTROINTESTINAL: Abdomen soft, non-tender, nondistended/obese. + Bowel sounds. MUSCULOSKELETAL: Extremities without clubbing or cyanosis. Bilateral foot +1 edema. No obvious deformities. NEUROLOGICAL: Awake, alert, oriented x3. No obvious cranial nerve deficits. Motor grossly within normal limits. Normal speech. PSYCHIATRIC: Appropriate mood and affect; insight and judgment normal. Assessment and Plan - Assessment (1) Acute kidney injury Code(s): N17.9 - Acute kidney failure, unspecified Status: Acute (2) Asthma exacerbation Code(s): J45.901 - Unspecified asthma with (acute) exacerbation Status: Acute (3) Tachycardia Code(s): R00.0 - Tachycardia, unspecified Status: Acute - Plan Patient with chronic kidney disease and now develop ANGELIC. Has significant proteinuria, with Nephrotic syndrome. Serology done and Complements are high, other pending. Renal size normal on U/S. Most likely will need Kidney Biopsy after new years holiday. Avoid Nephrotoxins.
[2018-07-07] MEDS: FLUoxetine 20 MG Capsule PO SCH (08:54)
[2018-07-07] MEDS: Gabapentin 100 MG Capsule PO SCH ×3 (08:54→18:42)
[2018-07-07] MEDS: dilTIAZem 60 MG Tablet PO SCH ×2 (08:54→21:05)
[2018-07-07] MEDS: Topiramate 100 MG Tablet PO SCH ×2 (08:54→21:05)
--- NOTE | 2018-07-07 09:44 | P.PNIM ---
Subjective Interval history: in bed appears in nad No abd pain No n/v/d/c. Has clear urine. No fever or chills. Plan for renal biopsy Physical Exam Vital signs: Last Vital Signs Temp 97.7 F 07/07/18 08:00 Pulse 90 07/07/18 08:00 Resp 16 07/07/18 08:00 BP 139/84 07/07/18 08:00 Pulse Ox 96 07/07/18 08:00 Intake & Output 07/05/18 07/06/18 07/07/18 07/08/18 06:59 06:59 06:59 06:59 Intake Total 1480 / 1480 2680 / 2680 1720 / 1720 Balance 1480 / 1480 2680 / 2680 1720 / 1720 Weight 131.5 kg 131.2 kg 131.2 kg Narrative: GENERAL: 28 yo female, obese, well-developed obese appears in no acute distress. CARDIOVASCULAR: Tachycardic, no murmurs. RESPIRATORY: Mild wheezing. Breath sounds equal bilaterally. GASTROINTESTINAL: Abdomen soft, non-tender, nondistended/obese. + Bowel sounds. MUSCULOSKELETAL: Extremities without clubbing or cyanosis. Bilateral foot +1 edema. No obvious deformities. NEUROLOGICAL: Awake, alert, oriented x3. No obvious cranial nerve deficits. Motor grossly within normal limits. Normal speech. PSYCHIATRIC: Appropriate mood and affect; insight and judgment normal. Results Labs CBC & Chem 7: 07/05/18 08:15 07/06/18 05:45 Assessment and Plan (1) Acute kidney injury: Code(s): N17.9 - Acute kidney failure, unspecified Status: Acute (2) Asthma exacerbation: Code(s): J45.901 - Unspecified asthma with (acute) exacerbation Status: Acute (3) Tachycardia: Code(s): R00.0 - Tachycardia, unspecified Status: Acute Plan Acute on chronic renal failure with proteinuria and electrolyte abnormalities BUN/creatinine 30/10.09 Patient previously worked up for renal failure in July 2016, at that time had significant proteinuria and a biopsy was recommended The patient did not follow-up with nephrology secondary to insurance issues and has had no further workup - Possible autoimmune etiology, MATTY, dsDNA, anti-Palacios, antiphospholipid antibodies pending -Renal ultrasound with increased echogenicity suggestive of medical renal disease, no hydronephrosis noted. - Nephrology consulted, appreciate assistance. -Plan for renal biopsy after New Years -Continue IV fluids, continue monitoring renal function Sinus tachycardia, chronic Reports her baseline pulse is 115 Hypertension, chronic -Continue home diltiazem, monitor heart rate and BP Shortness of breath Symptoms improved with breathing treatment -No further hypoxia, duo nebs as needed -Chest x-ray negative for acute process, no indication for antibiotics at this time -smoking cessation. -encourage ambulation, IS. Bilateral foot/leg edema -Ultrasound negative for DVT -Patient reports ongoing for the past 3 months or longer -Encourage elevation, improving Schizoaffective disorder with current depressive episode Continue Topamax, Latuda, fluoxetine Arrange for transfer back to [facility] for treatment once medically cleared DVT prophylaxisSCDs/early ambulation DC plan: DC whrn cleared by nephrology . Plan for renal biopsy after New Years Progress Note: Quality VTE Deep Vein Thrombosis/Pulmonary Embolism Present on Admission: No _ (1) Asthma exacerbation Qualifiers: Asthma persistence: Asthma severity:
--- NOTE | 2018-07-07 12:43 | P.PNNP ---
Subjective Interval history: Patient is alert , no SOB, eating well. Physical Exam Vital signs: Vital Signs 07/06/18 16:00 07/06/18 19:27 07/07/18 00:04 Temperature 98.1 F 98.6 F 98.0 F Pulse Rate 97 H 102 H 96 H Respiratory Rate 18 20 17 Blood Pressure 158/92 H 178/101 H 146/89 H Pulse Oximetry 98 97 97 07/07/18 03:30 07/07/18 08:00 07/07/18 12:00 Temperature 98.3 F 97.7 F 98.2 F Pulse Rate 89 90 86 Respiratory Rate 17 16 14 Blood Pressure 139/79 139/84 138/74 Pulse Oximetry 98 96 96 Intake & Output 07/06/18 07/07/18 07/07/18 18:59 06:59 18:59 Intake Total 1720 / 1720 Balance 1720 / 1720 Weight 131.2 kg Intake: IV 1000 / 1000 NS Inj 1,000 ML @ 100 mls/hr IV 1000 / 1000 .CONT .Q10H [facility] Rx#:[id number] Oral 720 / 720 Other: # Voids 5 2 # Bowel Movements 2 Narrative: GENERAL: 28 yo female, obese, well-developed obese appears in no acute distress. CARDIOVASCULAR: Tachycardic, no murmurs. RESPIRATORY: Mild wheezing. Breath sounds equal bilaterally. GASTROINTESTINAL: Abdomen soft, non-tender, nondistended/obese. + Bowel sounds. MUSCULOSKELETAL: Extremities without clubbing or cyanosis. Bilateral foot +1 edema. No obvious deformities. NEUROLOGICAL: Awake, alert, oriented x3. No obvious cranial nerve deficits. Motor grossly within normal limits. Normal speech. PSYCHIATRIC: Appropriate mood and affect; insight and judgment normal. Assessment and Plan - Assessment (1) Acute kidney injury Code(s): N17.9 - Acute kidney failure, unspecified Status: Acute (2) Asthma exacerbation Code(s): J45.901 - Unspecified asthma with (acute) exacerbation Status: Acute (3) Tachycardia Code(s): R00.0 - Tachycardia, unspecified Status: Acute - Plan Patient with chronic kidney disease and now develop ANGELIC. Has significant proteinuria, with Nephrotic syndrome. Serology done and Complements are high, Renal size normal on U/S. Most likely will need Kidney Biopsy after new years holiday. Avoid Nephrotoxins. Creatinine remain stable at 4.0
[2018-07-07] MEDS: Acetaminophen 325 MG Tablet PO PRN (21:05)
[2018-07-08] MEDS: Acetaminophen 325 MG Tablet PO PRN (05:25)
[2018-07-08] MEDS: dilTIAZem 60 MG Tablet PO SCH (08:20)
[2018-07-08] MEDS: FLUoxetine 20 MG Capsule PO SCH (08:20)
[2018-07-08] MEDS: Topiramate 100 MG Tablet PO SCH (08:20)
[2018-07-08] MEDS: Gabapentin 100 MG Capsule PO SCH ×2 (08:20→12:07)
--- NOTE | 2018-07-08 09:20 | P.PNNP ---
Subjective Interval history: Sleeping. Mild shortness of breath, no nausea, vomiting, or dysuria. Labs pending for today. Reports good urinary output. <Zoie Zuleta - Last Filed: 07/08/18 09:10> Physical Exam Vital signs: Vital Signs 07/07/18 12:00 07/07/18 13:30 07/07/18 16:00 Temperature 98.2 F 98.5 F Pulse Rate 86 79 99 H Respiratory Rate 14 20 16 Blood Pressure 138/74 145/84 H Pulse Oximetry 96 99 07/07/18 19:18 07/07/18 21:35 07/08/18 00:00 Temperature 98.5 F 97.8 F Pulse Rate 104 H 90 Respiratory Rate 20 18 18 Blood Pressure 158/87 H 158/87 H Pulse Oximetry 97 99 07/08/18 04:00 07/08/18 05:55 Temperature 97.3 F L Pulse Rate 89 Respiratory Rate 18 18 Blood Pressure 168/98 H Pulse Oximetry 100 Intake & Output 07/07/18 07/08/18 07/08/18 18:59 06:59 18:59 Intake Total 500 / 500 960 / 960 Balance 500 / 500 960 / 960 Weight 129.9 kg Intake: Oral 500 / 500 960 / 960 Other: # Voids 2 Date of Last Bowel Movement 07/07/18 Narrative: GENERAL: Alert and oriented. NAD CARDIOVASCULAR: RR, no murmurs. RESPIRATORY: Mild wheezing. Breath sounds equal bilaterally. GASTROINTESTINAL: Abdomen soft, non-tender, nondistended/obese. + Bowel sounds. MUSCULOSKELETAL: Extremities without clubbing or cyanosis. No obvious deformities. No edema PSYCHIATRIC: Appropriate mood and affect; insight and judgment normal. <Zoie Zuleta - Last Filed: 07/08/18 09:10> Vital signs: Vital Signs 07/07/18 21:35 07/08/18 00:00 07/08/18 04:00 Temperature 97.8 F 97.3 F L Pulse Rate 90 89 Respiratory Rate 18 18 18 Blood Pressure 158/87 H 168/98 H Pulse Oximetry 99 100 07/08/18 05:55 07/08/18 08:00 07/08/18 12:00 Temperature 98.5 F 97.7 F Pulse Rate 92 H 93 H Respiratory Rate 18 14 16 Blood Pressure 131/75 149/93 H Pulse Oximetry 98 99 07/08/18 16:00 Temperature 98.0 F Pulse Rate 87 Respiratory Rate 14 Blood Pressure 145/89 H Pulse Oximetry 98 Intake & Output 07/08/18 07/08/18 07/09/18 06:59 18:59 06:59 Intake Total 960 / 960 840 / 840 Balance 960 / 960 840 / 840 Weight 129.9 kg Intake: Oral 960 / 960 840 / 840 Other: # Voids 2 5 Date of Last Bowel Movement 07/07/18 07/07/18 # Bowel Movements 2 <Teja Russo - Last Filed: 07/08/18 20:45> Assessment and Plan - Assessment (1) Acute kidney injury Code(s): N17.9 - Acute kidney failure, unspecified Status: Acute (2) Asthma exacerbation Code(s): J45.901 - Unspecified asthma with (acute) exacerbation Status: Acute (3) Tachycardia Code(s): R00.0 - Tachycardia, unspecified Status: Acute - Plan Patient with chronic kidney disease and now develop ANGELIC. Has significant proteinuria, with Nephrotic syndrome. Complements are high, serology pending Renal size normal on U/S. Most likely will need Kidney Biopsy after new years holiday. Avoid Nephrotoxins. Fluids encouraged. Labs pending today, reports good urinary output will have nursing do accurate I+ O Blood pressure elevated will increase Cardizem, and monitor. labs in AM <Zoie Zuleta - Last Filed: 07/08/18 09:10> - Assessment (1) Acute kidney injury Code(s): N17.9 - Acute kidney failure, unspecified Status: Acute (2) Asthma exacerbation Code(s): J45.901 - Unspecified asthma with (acute) exacerbation Status: Acute (3) Tachycardia Code(s): R00.0 - Tachycardia, unspecified Status: Acute - Plan Patient seen and examined, agree with above. Patient has stable Creatinine of 4.0. Will need kidney Biopsy, can be discharged and I will follow in 1 week and arrange Biopsy as out patient. <Teja Russo - Last Filed: 07/08/18 20:45>
[2018-07-08 12:07] LABS: Albumin 1.2 g/dL (3.4-5.0); Carbon Dioxide 21.5 meq/L (21.0-32.0); Phosphorus 4.2 mg/dL (2.5-4.9); Potassium 5.1 meq/L (3.5-5.1)
[2018-07-08] MEDS ORDERED: dilTIAZem 60 MG Tablet PO SCH (13:00)
--- NOTE | 2018-07-08 13:08 | P.PNIM ---
Subjective Interval history: The patient is in bed she appears in not acute distress. No nausea or vomiting able to eat. No back pain or abdominal pain. She is able to ambulate. No chest pain or shortness of breath. Creatinine did not improve. No plan for dialysis at this time. Plan for renal biopsy after New Year's [place] Physical Exam Vital signs: Last Vital Signs Temp 98.5 F 07/08/18 08:00 Pulse 92 H 07/08/18 08:00 Resp 14 07/08/18 08:00 BP 131/75 07/08/18 08:00 Pulse Ox 98 07/08/18 08:00 Intake & Output 07/06/18 07/07/18 07/08/18 07/09/18 06:59 06:59 06:59 06:59 Intake Total 2680 / 2680 1720 / 1720 1460 / 1460 Balance 2680 / 2680 1720 / 1720 1460 / 1460 Weight 131.2 kg 131.2 kg 129.9 kg Narrative: GENERAL: Very pleasant 28 yo F, alert and oriented. In NAD CARDIOVASCULAR: RR, no murmurs. RESPIRATORY: Mild wheezing. Breath sounds equal bilaterally. GASTROINTESTINAL: Abdomen soft, non-tender, nondistended/obese. + Bowel sounds. MUSCULOSKELETAL: Extremities without clubbing or cyanosis. No obvious deformities. No edema PSYCHIATRIC: Appropriate mood and affect; insight and judgment normal. Results Labs CBC & Chem 7: 07/05/18 08:15 07/08/18 10:06 Assessment and Plan (1) Acute kidney injury: Code(s): N17.9 - Acute kidney failure, unspecified Status: Acute (2) Asthma exacerbation: Code(s): J45.901 - Unspecified asthma with (acute) exacerbation Status: Acute (3) Tachycardia: Code(s): R00.0 - Tachycardia, unspecified Status: Acute Plan Acute on chronic renal failure with proteinuria and electrolyte abnormalities Nephrotic syndrome BUN/creatinine 24/4.09 on admission. Creatinine is not improving. Patient previously worked up for renal failure in July 2016, at that time had significant proteinuria and a biopsy was recommended The patient did not follow-up with nephrology secondary to insurance issues and has had no further workup - Possible autoimmune etiology, MATTY, dsDNA, anti-Palacios, antiphospholipid antibodies pending -Renal ultrasound with increased echogenicity suggestive of medical renal disease, no hydronephrosis noted. - Nephrology consulted, appreciate assistance. -Plan for renal biopsy after New Years -Continue IV fluids, continue monitoring renal function Sinus tachycardia, chronic Reports her baseline pulse is 115 Hypertension, chronic -Continue home diltiazem, monitor heart rate and BP Shortness of breath Symptoms improved with breathing treatment -No further hypoxia, duo nebs as needed -Chest x-ray negative for acute process, no indication for antibiotics at this time -smoking cessation. -encourage ambulation, IS. Bilateral foot/leg edema -Ultrasound negative for DVT -Patient reports ongoing for the past 3 months or longer -Encourage elevation, improving Schizoaffective disorder with current depressive episode Continue Topamax, Latuda, fluoxetine Arrange for transfer back to [facility] for treatment once medically cleared DVT prophylaxisSCDs/early ambulation DC plan: DC when cleared by nephrology . Plan for renal biopsy after New Years Progress Note: Quality VTE Deep Vein Thrombosis/Pulmonary Embolism Present on Admission: No _ (1) Asthma exacerbation Qualifiers: Asthma persistence: Asthma severity:
[2018-07-08 15:21] LABS: DNA Double Stranded Antibody Less Than 12.3 IU/mL (<30.0 (Negative))
--- NOTE | 2018-07-08 17:31 | P.DS ---
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 Patient states that she went into [facility] on 07/02 for the evaluation of depression. She denies any current suicidal ideation. She endorses subjective chills but no fever. She states her shortness of breath is now mild and denies any associated chest pain. She has had a cough productive of light yellow sputum. She states her pulse at home is normally 115 and she takes diltiazem twice a day for her sinus tachycardia. No abdominal pain. No nausea/vomiting/ diarrhea. No focal neurologic deficits. The patient was found to be in acute renal failure with a creatinine greater than 4. She denies any urologic symptoms and states she is producing her usual amount of urine. DS: Diagnosis Discharge Diagnosis (1) Acute kidney injury: Status: Acute (2) Asthma exacerbation: Status: Acute (3) Tachycardia: Status: Acute DS: Summary Acute on chronic renal failure with proteinuria and electrolyte abnormalities Nephrotic syndrome BUN/creatinine 24/4.09 on admission. Creatinine is not improving. Patient previously worked up for renal failure in July 2016, at that time had significant proteinuria and a biopsy was recommended The patient did not follow-up with nephrology secondary to insurance issues and has had no further workup - Possible autoimmune etiology, MATTY, dsDNA, anti-Palacios, antiphospholipid antibodies pending -Renal ultrasound with increased echogenicity suggestive of medical renal disease, no hydronephrosis noted. - Nephrology consulted, appreciate assistance. -Plan for renal biopsy after New Years -Continue IV fluids, continue monitoring renal function Sinus tachycardia, chronic Reports her baseline pulse is 115 Hypertension, chronic -Continue home diltiazem, monitor heart rate and BP Shortness of breath Symptoms improved with breathing treatment -No further hypoxia, duo nebs as needed -Chest x-ray negative for acute process, no indication for antibiotics at this time -smoking cessation. -encourage ambulation, IS. Bilateral foot/leg edema -Ultrasound negative for DVT -Patient reports ongoing for the past 3 months or longer -Encourage elevation, improving Schizoaffective disorder with current depressive episode Continue Topamax, Latuda, fluoxetine Arrange for transfer back to [facility] for treatment once medically cleared DVT prophylaxisSCDs/early ambulation DC plan: DC when cleared by nephrology . Plan for renal biopsy after New Years The patient did not follow-up with nephrology secondary to insurance issues and has had no further workup - Possible autoimmune etiology, MATTY, dsDNA, anti-Palacios, antiphospholipid antibodies pending -Renal ultrasound with increased echogenicity suggestive of medical renal disease, no hydronephrosis noted. - Nephrology consulted, appreciate assistance. -Plan for renal biopsy after New Years -Continue IV fluids, continue monitoring renal function Sinus tachycardia, chronic Reports her baseline pulse is 115 Hypertension, chronic -Continue home diltiazem, monitor heart rate and BP Shortness of breath Symptoms improved with breathing treatment -No further hypoxia, duo nebs as needed -Chest x-ray negative for acute process, no indication for antibiotics at this time -smoking cessation. -encourage ambulation, IS. Bilateral foot/leg edema -Ultrasound negative for DVT -Patient reports ongoing for the past 3 months or longer -Encourage elevation, improving Schizoaffective disorder with current depressive episode Continue Topamax, Latuda, fluoxetine Arrange for transfer back to [facility] for treatment once medically cleared DVT prophylaxisSCDs/early ambulation Discussed with nephrology, so far Creatinine has been stable. Patient can be discharged home to follow up with nephrology in one week . Plan for renal biopsy after New Years in 1 week to follow up as OP with nephrology Time Spent with Patient Total time spent providing and/or coordinating discharge services: > 30 min Quality: VTE Deep Vein Thrombosis/Pulmonary Embolism Present on Admission: No Exam Narrative Exam Narrative: GENERAL: Very pleasant 28 yo F, alert and oriented. In NAD CARDIOVASCULAR: RR, no murmurs. RESPIRATORY: Mild wheezing. Breath sounds equal bilaterally. GASTROINTESTINAL: Abdomen soft, non-tender, nondistended/obese. + Bowel sounds. MUSCULOSKELETAL: Extremities without clubbing or cyanosis. No obvious deformities. No edema PSYCHIATRIC: Appropriate mood and affect; insight and judgment normal. No procedures Results Labs on day of discharge: Labs from last 24 hours 07/08/18 07/05/18 07/05/18 10:06 08:15 08:15 Thrombin Time ND Lupus Anticoagulant Lupus Anticoag aPTT 42.0 H Dil Sean Viper Venom 52.0 H dRVVT Confirm Interp Positive A dRVVT Mix Pat/Norm 1:1 Corrected dRVVT Mix Interpret Hexagonal Phase Confirm Negative Sodium 143 Potassium 5.1 Chloride 114 H Carbon Dioxide 21.5 Anion Gap 8 BUN 29 H Creatinine 4.03 H Estimated GFR 16 L Random Glucose 82 Calcium 7.0 L* Phosphorus 4.2 Albumin 1.2 L MATTY Screen Sm (Palacios) Antibody <1.0 neg Double Strand DNA Ab Less than 12.3 07/05/18 08:15 Thrombin Time Lupus Anticoagulant Lupus Anticoag aPTT Dil Sean Viper Venom dRVVT Confirm Interp dRVVT Mix Pat/Norm 1:1 dRVVT Mix Interpret Hexagonal Phase Confirm Sodium Potassium Chloride Carbon Dioxide Anion Gap BUN Creatinine Estimated GFR Random Glucose Calcium Phosphorus Albumin MATTY Screen Neg Sm (Palacios) Antibody Double Strand DNA Ab Impressions ITS Impressions Abdomen/Bladder Ultrasound 07/04/18 00:00 CONCLUSION: Both kidneys again demonstrate increased echogenicity suggestive of medical renal disease. There is no hydronephrosis. Chest X-Ray 07/04/18 16:45 CONCLUSION: No acute intrathoracic disease. Stable examination. Venous Doppler Study 07/04/18 16:46 CONCLUSION: 1. No sonographic evidence for lower extremity DVT. Discharge Plan Discharge Disposition Patient Disposition: Discharge Home Discharge Condition Condition: Stable Discharge Order Discharge Orders: Discharge Order (Routine); Ordered 07/08/18 Ordered By: Tamia Mccurdy Discharge Details Anticipated Discharge Date: 07/08/18 Physicians Team ED Provider: Mustapha Adair ED Midlevel Provider: Oren Chaparro Primary Care Provider: UNKNOWN, Attending Provider: Tamia Mccurdy Other Providers: Teja Russo ; [employer] Rxs /Orders / Referrals /Forms Prescriptions: Continue topiramate [Topamax] 100 mg Tablet 100 mg PO BID RF: 0 lurasidone [Latuda] 40 mg Tablet 40 mg PO DAILY RF: 0 gabapentin 100 mg Capsule 100 mg PO TID RF: 0 diltiazem HCl 60 mg Tablet 60 mg PO BID RF: 0 fluoxetine [Prozac] 20 mg Capsule 20 mg PO DAILY RF: 0 Referrals: Teja Russo MD [Physician] - 07/16/18 12:00 am ( Please call the physician's office to book the appointment to be seen within [1 week]. Renal biopsy ) UNKNOWN, [Primary Care Provider] - See Instructions ( Please call the physician's office to book the appointment to be seen within [2-3 days with your PCP ].) Stand Alone Forms: Work Release/Restrictions Discharge Instructions Patient Printed Instructions: Acute Kidney Injury (GEN) Status ED Status: Left Department
== END 2018-07-08 18:20 | disposition home or self-care (01) | DRG 683 ==
LOC: NEPE 16:23 → INTOOBSV 18:56 → NEDA 18:56 → OBSVTOIN 18:56 → N06 20:51
PROVIDERS: ADMIT Hospitalist; ATTEND Hospitalist
DX: I12.9 Hypertensive chronic kidney disease with stage 1 through stage 4 chronic kidney disease, or unspecified chronic kidney disease; F17.210 Nicotine dependence, cigarettes, uncomplicated; Z68.43 Body mass index [BMI] 50.0-59.9, adult; E66.9 Obesity, unspecified; N17.9 Acute kidney failure, unspecified; N18.9 Chronic kidney disease, unspecified; J45.901 Unspecified asthma with (acute) exacerbation; F32.9 Major depressive disorder, single episode, unspecified; F25.9 Schizoaffective disorder, unspecified; R00.0 Tachycardia, unspecified; R60.0 Localized edema
CPT/HCPCS: 71020; 71046; 76775; 76937; 80048; 80053; 80069; 81001; 82040; 82550; 82552; 82570; 84100; 84155; 84157; 84443; 84703; 85025; 85597; 85598; 85613; 85730; 86021; 86038; 86146; 86147; 86160; 86225; 86235; 87275; 87276; 87804; 90761; 90774; 90784; 93005; 93970; 94640; 94664; 94665; 96361; 96374; 97161; 99285; C8952; G8987; G8988; J2930; J7030; Q0163